=== PATIENT | female | born 1940 | race Caucasian/White ===

== ENCOUNTER 2016-10-30 07:31 | Day surgery (SDC) | payer MEDICARE, OTHER ==
--- NOTE | 2016-08-31 15:00 | NUR ---
PMH, allergies, meds reviewed and documented. Patient is in a clinic wheelchair, nobody is accompanying her into my office today. Preop and Postop instructions reviewed and handouts given (Post op Carpal Tunnel Instructions and Surgical Services pamphlet). She also has my contact information and I did encourage her to call if she has any questions. She does have an appointment with her wire preparation worker, Dr Gonzalez with [facility] on Sep 14 and she is scheduled to have some testing done at that time. I will request his recommendations for anticoag management preop as requested by Dr Garrido. I also made an apt for her to see Dr Montes for some blood work and clearance from him.
--- NOTE | 2016-09-01 09:52 | NUR ---
IMPLANTABLE DEVICES: Cards were copied and will be scanned into the EMR and Clinic EMR Defibrillator: [employer] ICD Model# [id number] # [id number] [place] [address] [employer]emaker [employer] [id number]/10/2010
--- NOTE | 2016-10-12 09:00 | NUR ---
Dr Garrido notified that straddle bug operator wants patient off Xarelto only 3 days instead of 5 days. Proceed to plan with surgery.
--- NOTE | 2016-10-19 12:04 | NUR ---
NN PT STATED THAT SHE HAD NOT BEEN INSTRUCTED TO STOP HER XARELTO WHEN I TALKED WITH HER. SHE LAST TOOK IT ON YESTERDAY EVENING BUT HAD NOT YET TAKEN IT TODAY. NOTIFIED Jazmin GRIER RN WITH DR. BARDALES. SHE STATED SHE WOULD NOTIFY DR. BARDALES AND SEE WHAT HIS THOUGHTS WERE FAR CONTINUING WITH PROCEDURE. PT. IS AWARE THAT SOMEONE WILL BE CALLING HER BACK.
--- NOTE | 2016-10-19 13:56 | NUR ---
XARELTO PT REPORTS TO Albina GOMEZ RN SHE DID NOT STOP HER XARELTO TILL 10-18-2016. SHE HAS TO BE OFF [address] BARDALES SAID TO CANCEL AND RESCHEDULE THE SURGERY. I DID INFORM THE PATIENT OF THIS AND WE WILL CALL AND RESCHEDULE HER ANDREZ. SHE WAS NOT INSTRUCTED BY THE STOVE FITTER TO STOP HER XARELTO
--- NOTE | 2016-10-21 11:10 | NUR ---
Surgery rescheduled for 10-30-16. Pt instructed to hold Xarelto x3 days as requested by Dr Gonzalez and Dr Garrido, to take Entresto the morning before surgery but to hold the evening dose and to not take it the morning of surgery. Patient was writing instructions down.
[~2016-10-30] VITALS: Ht 160 cm; Wt 99.7 kg
[~2016-10-30 07:31] MED LIST: ACET-2723 PO; ALLO300T2 PO; AMIT50TA95 PO; BUME2TAB18 PO; CALC200T PO; CHOL400T23 PO; DIGO125T17 PO; LATA2.5D7 BOTH EYES; LETR2.5T4 PO; LEVO75TA10 PO; LIDOCAINE 1% (10mg/ml) 2ml SDV INJ ONE; LR 1,000 ML IV SCH; METO25TA6 PO; NITR0.4T SL; NORMAL SALINE 1,000 ML IV ONE; OMEP40CA11 PO; RIVA20TA PO; SACU1TAB PO; TRIA15CR4 TOP
--- OUTSIDE RECORDS SUMMARY | 2016-10-30 07:35 | XMS REPORT | Continuity of Care Document ---
Author Author [facility] Organization [facility] Address Unknown Phone Unavailable Support Name Relationship Address Phone MONY FELIZ FACS, MD Caregiver [address] [place] [address] [place] [address] Unavailable VIKY CANAS DO Caregiver [address] [place] [address] [place] [address] Unavailable ISRRAEL ZUNIGA Next Of Kin Unknown [phone] CP Insurance Providers Guarantor Kim Zuniga Address [address] [address] Email DENIED/NO TO PT PORTAL Payer Medicare Policy Number [id number] Subscriber's Name Kim Zuniga Relationship 18 Self Effective Date 04 Payer Other A Insurance Policy Number [id number] Subscriber's Name Kim Zuniga Relationship 18 Self Advance Directives Directive Response Recorded Date/Time Dr Ordered Resuscitation Status Full Code 01/17/16 3:51pm Resuscitation Documents on File No 01/20/16 2:13pm DPOA for Healthcare Only No 01/20/16 2:13pm Problems Active Problems Medical Problem Onset Date Status Bilateral breast cancer Unknown Acute CAD (coronary artery disease) Unknown Chronic COPD (chronic obstructive pulmonary disease) Unknown Chronic Chest wall contusion Unknown Acute Contusion of arm, right Unknown Acute Elevated INR Unknown Acute GERD (gastroesophageal reflux disease) Unknown Chronic History of DVT (deep vein thrombosis) Unknown Resolved History of pulmonary embolus (PE) Unknown History of sick sinus syndrome Unknown Chronic Hypertension Unknown Chronic Hypothyroidism Unknown Chronic Postoperative hypotension Unknown Presence of combination internal cardiac defibrillator (ICD) and pacemaker Unknown Chronic Right rib fracture Unknown Acute Medications Current Home Medications Medication Dose Units Route Directions Days Qty Instructions Start Date Acetaminophen (Tylenol Extra Strength) 500 Mg Tablet 1-2 Tab Oral Every 6 Hours as needed for Pain 12/18/15 Allopurinol 300 Mg Tablet 300 Mg Oral Bedtime 11/16/15 Amitriptyline Hcl 50 Mg Tablet 50 Mg Oral Bedtime 05/19/10 Bumetanide 2 Mg Tablet 1-2 Mg Oral Daily 11/16/15 Hydrocodone/Acetaminophen (Lucien 5-325 Tablet) 5-325 Tablet 1 Tab Oral Every 4 Hours 01/20/16 Latanoprost 2.5 Ml Drops 1 Drop Both Eyes Bedtime 11/16/15 Levothyroxine Sodium 75 Mcg Tablet 75 Mcg Oral Bedtime 11/16/15 Metoprolol Tartrate 25 Mg Tablet 25 Mg Oral Twice A Day 11/16/15 Omeprazole (Prilosec) 40 Mg Capsule. 40 Mg Oral Bedtime Spironolactone 25 Mg Tablet 25 Mg Oral Twice A Day 11/16/15 Triamcinolone (Triamcinolone Acetonide) 15 Applic/15 G Cr 1 Applic Topically Twice A Day 11/16/15 Vit A/C/E Ac/Znox/Cupric Oxide (Eye Vitamin-Minerals Tablet) 1 Each Tablet 1 Tab Oral Twice A Day 11/16/15 Warfarin Sodium 2 Mg Tablet 3 Tab Oral Daily 90 Tablet 01/20/16 Past Home Medications Medication Directions Ordered Status Amlodipine Besylate (Norvasc) 10 Mg Tablet, 10 Mg Oral Daily 12/23/08 Discontinued Cholecalciferol (Vitamin D) 400 Unit Capsule, 12/23/08 Discontinued Duloxetine Hcl (Cymbalta) 60 Mg Capsule., Daily 12/23/08 Discontinued Esomeprazole Mag Trihydrate (Nexium) 40 Mg Capsule., 40 Mg Oral 12/23/08 Discontinued Flaxseed (Flaxseed Oil) 1,000 Mg Capsule, Daily 12/23/08 Discontinued Ipratropium [place] (Atrovent Hfa) 12.9 Gm Aer.w.adap, Every 6 Hours Discontinued Metoprolol Succinate (Toprol Xl) 100 Mg Tab.sr.24h, Daily 12/23/08 Discontinued Vitamin E 200 Unit Capsule, 12/23/08 Discontinued Warfarin Sodium 2 Mg Tablet, 6 Mg Oral Every Wednesday And 11/16/15 Discontinued Warfarin Sodium 2 Mg Tablet, 5 Mg Oral Every Wednesday, Wednesday, Wednesday, Wednesday , And Wednesday11/16/15 Discontinued Warfarin Sodium (Coumadin) 2 Mg Tablet, Daily 12/23/08 Discontinued Social History Social History Problem Response Recorded Date/Time Onset Date Status Chewing Tobacco Status No 01/17/2016 1:38pm Not Applicable Not Applicable Hx Substance Use No 01/17/2016 1:38pm Not Applicable Not Applicable Hx Alcohol Use No 01/20/2016 2:48pm Not Applicable Not Applicable Has the pt used tobacco in the last 12 months No 01/17/2016 1:38pm Not Applicable Not Applicable Tobacco Usage none 11/16/2015 11:21am Not Applicable Not Applicable Query Response Start Date Stop Date Smoking Status Never smoker Hospital Discharge Instructions No hospital discharge instructions. Plan of Care Discharge Date 01/20/16 4:58pm Instructions/Education Provided DI for Arturo-Tatum Drains How to Use and Care for Your Arturo-Tatum Drain Arturo-Tatum Drain Prescriptions See Medication Section Functional Status Query Response Date Recorded Ability to complete ADL's impeded by No change January 20, 2016 2:13pm Allergies, Adverse Reactions, Alerts Allergen Type Severity Reaction Status Last Updated Codeine Allergy Severe COULDN'T BREATH,HEART RACING Active 01/20/16 Immunizations Query Response on File Recorded Date/Time Hx Influenza Vaccination Y SEP 2015 01/17/16 1:38pm Hx Pneumococcal Vaccination Y 201001/17/16 1:38pm Hx Tetanus, Diptheria, Pertussis Y MORE THAN 5 YRS. AGO 12/22/08 5:47pm Hx Influenza Vaccination Y SEP 2015 01/17/16 1:38pm Hx Tetanus, Diptheria, Pertussis Y MORE THAN 5 YRS. AGO 12/22/08 5:47pm Influenza Vaccine Hx SEP 2015 12/21/15 12:31pm Vital Signs Acute Vital Signs Vital Response Date/Time Temperature (Fahrenheit) 97.6 deg F (96.8 - 99.1) 01/20/2016 3:45pm Temperature (Calculated Celsius) 36.72197 degrees C (36.0 - 37.3) 01/20/2016 3:45pm Temperature Source Temporal 01/20/2016 3:45pm Pulse Rate (adult) 76 bpm (60 - 100) 01/20/2016 4:45pm Respiratory Rate 16 breaths/min (10 - 20) 01/20/2016 4:45pm O2 Sat by Pulse Oximetry 94 % (90 - 100) 01/20/2016 4:45pm Oxygen Delivery Method Nasal Cannula 12/21/2015 3:43pm Oxygen Delivery Method Nasal Cannula 01/20/2016 4:45pm Oxygen Flow Rate 3.00 L/min 01/20/2016 4:45pm Fraction of Inspired Oxygen (FIO2) 30 % 12/20/2015 7:04am Blood Pressure 111/74 mm Hg 01/20/2016 4:45pm Blood Pressure Source Automatic Cuff 01/20/2016 4:45pm Height (Feet) 5 feet 01/20/2016 1:30pm Height (Inches) 3.00 inches 01/20/2016 1:30pm Weight (Kilograms) 104.800 kg 01/20/2016 1:30pm Body Mass Index (BMI) 40.9 01/20/2016 1:30pm Results Laboratory Results Test Name Result Units Flags Reference Collection Date/Time Result Date/ Time Comments Carcinoembryonic Antigen 2.23 UG/L 0-3.0 10/24/2015 2:10pm 10/24/2015 3 :47pm CA 27.29 51.45 U/ML H 0-37.7 10/24/2015 2:10pm 10/24/2015 3:53pm Prothromb Time International Ratio 1.11 H 0.81-1.09 12/19/2015 7:34am 12/19/2015 7:49am THERAPUTIC RANGE=2.00-3.00 FOR ANTI-THROMBOSIS THERAPUTIC RANGE=2.50-3.50 FOR IMPLANTED VALVE White Blood Count 8.5 T/MM3 4.5-11.0 01/20/2016 1:25pm 01/20/2016 1: 31pm Red Blood Count 4.00 M/MM3 4.00-5.20 01/20/2016 1:pm 01/20/2016 1: 31pm Hemoglobin 11.3 GM/DL L 12-16 01/20/2016 1:01/20/2016 1:31pm Hematocrit 38.2 % 36-46 01/20/2016 1:01/20/2016 1:31pm Mean Corpuscular Volume 95.5 UM3 80-100 01/20/2016 1:01/20/2016 1: 31pm Mean Corpuscular Hemoglobin 28.3 UUG 26-34 01/20/2016 1:2015 1:31pm Mean Corpuscular Hemoglobin Concent 29.6 GM/DL L 31-37 01/20/2016 1:01/20/2016 1:31pm RDW Standard Deviation 54.6 FL H 36.9-50.2 01/20/2016 1:01/20/2016 1:31pm Platelet Count 284 T/MM3 130-400 01/20/2016 1:01/20/2016 1:31pm Mean Platelet Volume 9.1 UM3 L 9.4-12.4 01/20/2016 1:01/20/2016 1: 31pm Neutrophils (%) (Auto) 62.4 % 33-66 01/20/2016 1:01/20/2016 1: 31pm Lymphocytes (%) (Auto) 24.0 % 23-45 01/20/2016 1:01/20/2016 1: 31pm Monocytes (%) (Auto) 9.9 % H 0-9.0 01/20/2016 1:01/20/2016 1:31pm Eosinophils (%) (Auto) 3.1 % 0-4 01/20/2016 1:01/20/2016 1:31pm Basophils (%) (Auto) 0.4 % 0-2 01/20/2016 1:01/20/2016 1:31pm Immature Granulocyte % (Auto) 0.2 % 0.0-0.5 01/20/2016 1:2015 1:31pm Absolute Neutrophils (auto) 5.3 T/MM3 1.8-7.7 01/20/2016 1:2015 1:31pm Absolute Lymphocytes (auto) 2.0 T/MM3 1-4.8 01/20/2016 1:2015 1:31pm Absolute Monocytes (auto) 0.8 T/MM3 0-0.8 01/20/2016 1:01/20/2016 1:31pm Absolute Eosinophils (auto) 0.3 T/MM3 0-0.5 01/20/2016 1:2015 1:31pm Absolute Basophils (auto) 0.0 T/MM3 0-0.2 01/20/2016 1:01/20/2016 1:31pm Absolute Immature Granulocyte (auto 0.02 T/MM3 0.00-0.03 01/20/2016 1: 01/20/2016 1:31pm Icterus Index < 2 0-7 01/20/2016 1:01/20/2016 1:48pm Chemistry Specimen Hemolysis < 15 0-25 01/20/2016 1:01/20/2016 1 :48pm 0-25: Specimen Exhibited No Hemolysis. Turbidity < 20 0-20 01/20/2016 1:01/20/2016 1:48pm Sodium Level 142 MEQ/L 134-144 01/20/2016 1:01/20/2016 1:48pm Potassium Level 4.5 MEQ/L 3.6-5 01/20/2016 1:01/20/2016 1:48pm Chloride Level 99 MEQ/L 98-107 01/20/2016 1:01/20/2016 1:48pm Carbon Dioxide Level 29 MEQ/L 22-30 01/20/2016 1:01/20/2016 1: 48pm Anion Gap 14 MEQ/L 5-15 01/20/2016 1:01/20/2016 1:48pm Blood Urea Nitrogen 33.0 MG/DL H 7-17 01/20/2016 1:01/20/2016 1: 48pm Creatinine 1.3 MG/DL H 0.7-1.2 01/20/2016 1:01/20/2016 1:48pm BUN/Creatinine Ratio 25 RATIO 6-26 01/20/2016 1:01/20/2016 1:48pm Glomerular Filtration Rate Calc 40 01/20/2016 1:01/20/2016 1: 48pm Glucose Level 98 MG/DL 65-110 01/20/2016 1:01/20/2016 1:48pm Calculated Osmolality 280 MOSM/KG 261-280 01/20/2016 1:01/20/2016 1:48pm Calcium Level 9.7 MG/DL 8.4-10.2 01/20/2016 1:01/20/2016 1:48pm Total Bilirubin 0.60 MG/DL 0.20-1.30 01/20/2016 1:01/20/2016 1: 48pm Alkaline Phosphatase 89 U/L 38-126 01/20/2016 1:01/20/2016 1:48pm Total Protein 7.9 G/DL 6.3-8.2 01/20/2016 1:25pm 01/20/2016 1:48pm Albumin 4.4 G/DL 3.5-5.0 01/20/2016 1:25pm 01/20/2016 1:48pm Globulin 3.5 G/DL 2.4-3.6 01/20/2016 1:25pm 01/20/2016 1:48pm Albumin/Globulin Ratio 1.3 RATIO 1.1-2.2 01/20/2016 1:25pm 01/20/2016 1 :48pm Aspartate Amino Transf (AST/SGOT) 31 U/L 14-36 01/20/2016 1:25pm 2015 1:48pm Alanine Aminotransferase (ALT/SGPT) 19 U/L 9-52 01/20/2016 1:25pm 01/19 1:48pm Procedures Procedure Status Date Provider(s) PET IMAGE W/CT SKULL-THIGH Completed 10/23/15 [id number]"FLUORODEOXYGLUCOSE F-18 FDG, DIAGNOSTIC, PER STUDY DO Completed CARCINOEMBRYONIC ANTIGEN Completed 10/24/15 IMMUNOASSAY TUMOR CA 15-3 Completed 10/24/15 MAST MOD RAD Completed 12/20/15 MONY FELIZ MD, FACS, CWS RA TRACER ID OF SENTINL NODE Completed 12/20/15 MONY FELIZ MD, FACS, CWS POS AIRWAY PRESSURE CPAP Completed 12/20/15 MONY FELIZ MD, FACS, CWS RESECTION OF BILATERAL BREAST, OPEN APPROACH Completed 12/19/15 MONY FELIZ MD, FACS, CWS EXCISION OF LEFT AXILLARY LYMPHATIC, OPEN APPROACH, DIAGN Completed 12/19/15 MONY FELIZ MD, FACS, CWS EXCISION OF RIGHT AXILLARY LYMPHATIC, OPEN APPROACH, DIAGN Completed MONY FELIZ MD, FACS, CWS ASSISTANCE WITH RESPIRATORY VENTILATION, <24 HRS, CPAP Completed 12/19/15 MONY FELIZ MD, FACS, CWS ROUTINE VENIPUNCTURE Completed 11/16/15 X-RAY EXAM RIBS/CHEST4/> VWS Completed 11/16/15 METABOLIC PANEL TOTAL CA Completed 11/16/15 COMPLETE CBC W/AUTO DIFF WBC Completed 11/16/15 PROTHROMBIN TIME Completed 11/16/15 ELECTROCARDIOGRAM TRACING Completed 11/16/15 EMERGENCY DEPT VISIT Completed 11/16/15 Modified radical mastectomy Completed 01/20/16 MONY FELIZ MD, JI MEEKS Encounters Encounter Location Arrival/Admit Date Discharge/Depart Date Attending Provider Departed Surgical Day Care [facility] 01/20/16 1:03pm 01/20/16 4: 58pm MONY FELIZ FACS, MD Discharged Inpatient [facility] 12/20/15 5:20pm 12/21/15 4:35pm MONY FELIZ FACS, MD Departed Emergency Room [facility] 11/16/15 10:50am 11/16/15 1: 05pm KASH MENDOZA MD Registered Clinic [facility] 10/24/15 2:21pm HARDIK FAY MD Registered Clinic [facility] 10/23/15 6:53am HARDIK FAY MD
--- OUTSIDE RECORDS SUMMARY | 2016-10-30 07:36 | XMS REPORT | Referral Summary ---
Author Author [facility] Organization [facility] Address Unknown Phone Unavailable Care Team Providers Care Pet Care Attendant Name Role Phone Alfredo Montes Primary Care Physician [phone] Encounter VC Date(s): 02/04/16 - 02/04/16 [facility] [address] [place] [address] Dr Cespedes [place] [id number]- Discharge Diagnosis: Visit for suture removal Discharge Disposition: 01-Home or Self Care Attending Physician: Chapis Wolff APRN Admitting Physician: Chapis Wolff APRN Referring Physician: Alfredo Montes DO Vital Signs Most recent to 1 oldest [Reference Range]: Temperature Tympanic 37 degC [36.6-38.1 degC] (02/04/16 10:03 AM) Problem List Condition Effective Dates Status Health Status Informant Angina/Chest Active Pain(Confirmed) Back pain(Confirmed) Active Backache Active (finding)(Confirmed) Benign essential Active hypertension (disorder)(Confirmed ) Benign Active hypertension(Confirm ed) Blood clots Active lungs/legs(Confirmed ) Cardiac 10/10/14 Active pacemaker(Confirmed) 1 CARDIOMEGALY(Confirm Active ed) COPD (CHR AIRWAY Active OBSTRUCT NEC)(Confirmed) COR ATH UNSP VSL Active NTV/GFT(Confirmed) Coronary Active arteriosclerosis (disorder)(Confirmed ) Coronary artery Active disease(Confirmed) Depression Disorder, Active Not Elsewhere Classified(Confirmed ) DVT (deep venous Active thrombosis)(Confirme d) Gastroesophageal Active reflux disease (disorder)(Confirmed ) GERD(Confirmed) Active High Active cholesterol(Confirme d) Hypothyroidism Active (disorder)(Confirmed ) Hypothyroidism(Confi Active rmed) Irregular heart Active rhythm(Confirmed) Non-toxic Active multinodular goiter (disorder)(Confirmed ) Nontoxic Active multinodular goiter(Confirmed) Pedal Active edema(Confirmed) Sick sinus Active syndrome(Confirmed) Sinus node Active dysfunction (disorder)(Confirmed ) Thyroid Active disease/Goiter(Confi rmed) Diabetes, type 2, Active unspec(Confirmed) UNSPECIFIED Active CATARACT(Confirmed) 1Dr. Jhonatan Portillo placed the pacemaker. I made a copy of the ID card for the chart. Allergies, Adverse Reactions, Alerts Substance Reaction Severity Status codeine Active Medications allopurinol 300 mg oral tablet See Instructions, TAKE 1 TABLET AT BEDTIME, # 90 tabs, 1 Refill(s), [facility], TAKE 1 TABLET AT BEDTIME Start Date: 11/07/15 Status: Ordered amitriptyline 50 mg oral tablet 50 mg 1 tabs, Oral, Bedtime (once a day), # 90 tabs, 2 Refill(s), Pharmacy: [facility], 1 tabs Oral Bedtime (once a day) Start Date: 11/07/15 Status: Ordered bumetanide 2 mg oral tablet 0.5 tabs, Oral, Daily, # 45 tabs, 2 Refill(s), Pharmacy: [facility], 0.5 tabs Oral Daily Start Date: 08/23/14 Status: Ordered latanoprost 0.005% ophthalmic solution 1 drops, Eye-Both, Bedtime (once a day), Please send 90 day supply quantity sufficient, # 3 Each, 2 Refill(s), Pharmacy: [facility] Start Date: 11/07/15 Status: Ordered levothyroxine 75 mcg (0.075 mg) oral tablet 75 mcg 1 tabs, Oral, Daily, # 90 tabs, 2 Refill(s), Pharmacy: [facility], 1 tabs Oral Daily Start Date: 11/07/15 Status: Ordered metoprolol tartrate 25 mg oral tablet 25 mg 1 tabs, Oral, BID, # 60 tabs, 2 Refill(s), Pharmacy: [facility] Start Date: 11/07/15 Status: Ordered minocycline 100 mg oral capsule 100 mg 1 caps, Oral, BID, # 20 caps, 0 Refill(s) Start Date: 12/06/15 Stop Date: 12/16/15 Status: Ordered minocycline 100 mg oral tablet 100 mg 1 tabs, Oral, BID, 0 Refill(s) Start Date: 02/04/16 Status: Ordered Nitrostat 0.4 mg sublingual tablet 1 tabs, SubLingual, q5min, as needed for chest pain, not to exceed 3 doses/15 min--if pain persists, seek medical attention, # 8,640 tabs, 1 Refill(s), Pharmacy: [facility], 1 tabs SubLingual q5min,PRN:as needed for chest pain, Instr:not to exceed... Start Date: 08/23/14 Status: Ordered omeprazole 40 mg oral delayed release capsule See Instructions, TAKE 1 CAPSULE EVERY DAY, # 90 caps, 1 Refill(s), Pharmacy: [facility], TAKE 1 CAPSULE EVERY DAY Start Date: 11/07/15 Status: Ordered spironolactone 25 mg oral tablet 25 mg 1 tabs, Oral, BID, # 180 tabs, 1 Refill(s), Pharmacy: [facility], 1 tabs Oral BID Start Date: 11/07/15 Status: Ordered triamcinolone 0.1% topical cream See Instructions, APPLY TO AFFECTED AREA(S) TWICE DAILY, # 90 g, 2 Refill(s), eRx: [facility], APPLY TO AFFECTED AREA(S) TWICE DAILY Start Date: 07/19/15 Status: Ordered triamcinolone 0.1% topical cream See Instructions, APPLY TO AFFECTED AREA(S) TWICE DAILY, # 90 g, 2 Refill(s), Pharmacy: [facility] Start Date: 11/07/15 Stop Date: 11/06/16 Status: Ordered warfarin 2 mg oral tablet See Instructions, Take as directed per INR Right now patient on 3 tabs daily 90 day supply, # 270 tabs, 2 Refill(s), Pharmacy: [facility] , Take as directed per INR; Right now patient on 3 tabs daily 90 day supply Start Date: 11/07/15 Status: Ordered Results No data available for this section Immunizations Vaccine Date Refusal Reason influenza virus vaccine, inactivated 08/29/15 influenza virus vaccine, live 05/23/14 influenza virus vaccine, live 05/16/13 pneumococcal 13-valent conjugate vaccine 08/29/15 zoster vaccine live 08/29/15 Procedures Procedure Date Related Diagnosis Body Site Revision of mastectomy scar1 01/20/16 Bilateral mastectomy2 12/19/15 History of combination internal cardiac 10/09/14 defibrillator and pacemaker3 DM FOOT EXAM 01/20/12 Pacemaker4 01/09/10 Rt inguinal hernia5 2007 Cataract Left 2007 Cataract Right 2007 Adenomatous polyp 2006 Colonoscopy 2006 Knee replacement L 2005 Knee replacement R 2005 BREAST BIOPSY LEFT AND RIGHT 1997 Thyroid Surgery ANKUSH THYROID 1997 HERNIATED DISC L4-5 1995 Appendectomy 1975 gall bladder 1974 History of combination internal cardiac defibrillator and pacemaker Mammogram6 1right 2Sentinel nods negative on frozen section.Right node with single focus of micrometastatis on permanent sections. 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 Bryan OLVIARES - see Conversion Document 5Dr. Lm in [place] - see Conversion Document. 6Needs additional Imaging. See scanned document Social History Social History Type Response Smoking Status Never smoker Assessment and Plan Extracted from: Title: Office Visit Note Author: Chapis Wolff SERVICE ADMINISTRATOR Date: 02/04/16 Assessment/Plan 1.Visit for suture removal Mastectomy flap is looking good. It is flatteron the rightthan on the left because we did have to take out extra skinand that tightened upthe flap. Hopefully the mastectomy bra with a wider band will take care of most of the problem with the"dog ear"in the left axilla. Continue withoncology care with Dr. Meade cardiology carewith Dr. Gonzalez. Return to our office on an as-needed basis. General medical care at the discretion of Dr. Alfredo Montes. Ordered: Postoperative Est [id number]
--- OUTSIDE RECORDS SUMMARY | 2016-10-30 07:36 | XMS REPORT | Referral Summary ---
Author Author [facility] Organization [facility] Address Unknown Phone Unavailable Care Team Providers Care Data Control Clerk Name Role Phone BellleylaAlfredo Primary Care Physician [phone] Encounter VC Date(s): 12/27/15 - 12/27/15 [facility], Surgery [address] [place] [address] [place] [address]- Discharge Diagnosis: Encounter for change or removal of drains Discharge Diagnosis: Malignant neoplasm of overlapping sites of right female breast Discharge Diagnosis: Bilateral breast cancer Discharge Disposition: 01-Home or Self Care Attending Physician: Eddie Chris MD Admitting Physician: Eddie Chris MD Vital Signs Most recent to 1 oldest [Reference Range]: Temperature Tympanic 36.9 degC [36.6-38.1 degC] (12/27/15 11:42 AM) Problem List Condition Effective Dates Status [...] BEDTIME, # 90 tabs, 1 Refill(s), Pharmacy: [facility], TAKE 1 TABLET AT BEDTIME Start Date: 11/07/15 Status: Ordered amitriptyline 50 mg oral tablet 50 mg 1 tabs, Oral, Bedtime (once a day), # 90 tabs, 2 Refill(s), Pharmacy: [facility], 1 tabs Oral Bedtime (once a day) Start Date: 11/07/15 Status: Ordered bumetanide 2 mg oral tablet 0.5 tabs, Oral, Daily, # 45 tabs, 2 Refill(s), Pharmacy: [facility], 0.5 tabs Oral Daily Start Date: 08/23/14 Status: Ordered latanoprost 0.005% ophthalmic solution 1 drops, Eye-Both, Bedtime (once a day), Please send 90 day supply quantity sufficient, # 3 Each, 2 Refill(s), Pharmacy: [facility] Start Date: 11/07/15 Status: Ordered levothyroxine 75 mcg (0.075 mg) oral tablet 75 mcg 1 tabs, Oral, Daily, # 90 tabs, 2 Refill(s), Pharmacy: [facility], 1 tabs Oral Daily Start Date: 11/07/15 Status: Ordered metoprolol tartrate 25 mg oral tablet 25 mg 1 tabs, Oral, BID, # 60 tabs, 2 Refill(s), Pharmacy: [facility] Start Date: 11/07/15 Status: Ordered minocycline 100 mg oral capsule 100 mg 1 caps, Oral, BID, # 20 caps, 0 Refill(s) Start Date: 12/06/15 Stop Date: 12/16/15 Status: Ordered Nitrostat 0.4 mg sublingual tablet 1 tabs, SubLingual, q5min, as needed for chest pain, not to exceed 3 doses/15 min--if pain persists, seek medical attention, # 8,640 tabs, 1 Refill(s), Pharmacy: [facility], 1 tabs SubLingual q5min,PRN:as needed for chest pain, Instr:not to exceed... Start Date: 08/23/14 Status: Ordered [place] 5 mg-325 mg oral tablet 1 tabs, Oral, q6hr, as needed for pain, # 15 tabs, 0 Refill(s) Start Date: 11/18/15 Status: Ordered omeprazole 40 mg oral delayed release capsule See Instructions, TAKE 1 CAPSULE EVERY DAY, # 90 caps, 1 Refill(s), Pharmacy: [facility], TAKE 1 CAPSULE EVERY DAY Start Date: 11/07/15 Status: Ordered spironolactone 25 mg oral tablet 25 mg 1 tabs, Oral, BID, # 180 tabs, 1 Refill(s), Pharmacy: [facility], 1 tabs Oral BID Start Date: 11/07/15 Status: Ordered triamcinolone 0.1% topical cream See Instructions, APPLY TO AFFECTED AREA(S) TWICE DAILY, # 90 g, 2 Refill(s), eRx: [facility], APPLY TO AFFECTED AREA(S) TWICE DAILY Start Date: 07/19/15 Status: Ordered triamcinolone 0.1% topical cream See Instructions, APPLY TO AFFECTED AREA(S) TWICE DAILY, # 90 g, 2 Refill(s), Pharmacy: [facility] Start Date: 11/07/15 Stop Date: 11/06/16 Status: Ordered warfarin 2 mg oral tablet See Instructions, Take as directed per INR Right now patient on 3 tabs daily 90 day supply, # 270 tabs, 2 Refill(s), Pharmacy: [facility] , Take as directed [...] Procedures Procedure Date Related Diagnosis Body Site Bilateral mastectomy1 12/19/15 History of combination internal cardiac 10/09/14 defibrillator and pacemaker2 DM FOOT EXAM 01/20/12 Pacemaker3 01/09/10 Rt inguinal hernia4 2007 Cataract Left 2006 Cataract Right 2006 Adenomatous polyp 2006 Colonoscopy 2006 Knee replacement L 2005 Knee replacement R 2005 BREAST BIOPSY LEFT AND RIGHT 1996 Thyroid Surgery ANKUSH THYROID 1997 HERNIATED DISC L4-5 1995 Appendectomy 1974 gall bladder 1974 History of combination internal cardiac defibrillator and pacemaker Mammogram5 1Sentinel nods negative on frozen section.Right node with single focus of micrometastatis on permanent sections. 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 3PDr. Bryan QUACH - see Conversion Document 4Dr. Lm in [place] - see Conversion Document. 5Needs additional Imaging. See scanned document Social History Social History Type Response Smoking Status Never smoker Assessment and Plan Extracted from: Title: Office Visit Note Author: Eddie Chris MD Date: 12/27/15 Assessment/Plan 1.Encounter for change or removal of drains Ordered: Postoperative Est 74258 2.Bilateral breast cancer, Malignant neoplasm of overlapping sites of right female breast Ordered: Postoperative Est [id number] Plan: remove all 4 drains today, restart Warafin on December 28 and follow up with Dr. Montes for INR monitoring. Keep appointments with Dr. Love as scheduled. Follow up with me in 1weekfor suture/staple removal. I did inform the patient that her pathology did reveal onesingle focus of micro-metastatic ductal carcinomato her rightaxillary sentinel lymph node. I informed the patient that I will defer to oncology any additional treatmentthat is needed. Patient was informed that I am pleased with her surgical outcome. We did remove her drains today. I am a little reluctant tore-initiateher Coumadintoday. Patient was informedthat on Wednesday she should restart her Coumadin. She is follow-up with her PCPfor his end of next weekfor recheck of her INR. Patient was informed that I would also like to see her back next week in follow-up. She is also tosee her oncologistas well.
--- OUTSIDE RECORDS SUMMARY | 2016-10-30 07:36 | XMS REPORT | Referral Summary ---
Author Author [facility] Organization [facility], [facility] Address Unknown Phone Unavailable Care Team Providers Care Gold Prospector Name Role Phone BellAlfredo mayer Primary Care Physician [phone] Encounter VC Date(s): 11/16/15 - 11/16/15 [facility], [address] [place] [address]- Discharge Disposition: 01-Home or Self Care Attending Physician: Dl Pang MD Admitting Physician: Dl Pang MD Vital Signs Most recent to 1 oldest [Reference Range]: Temperature Tympanic 36.6 degC [36.6-38.1 degC] (11/16/15 10:13 AM) Peripheral Pulse 106 bpm Rate [60-100 bpm] *HI* (11/16/15 10:13 AM) Blood Pressure 128/78 mmHg [90-140/60-90 mmHg] (11/16/15 10:13 AM) SpO2 87 % (11/16/15 10:13 AM) Problem List Condition Effective Dates Status [...] # 90 tabs, 1 Refill(s), Pharmacy: [facility], TAKE 1 TABLET AT BEDTIME Start Date: 11/07/15 Status: Ordered amitriptyline 50 mg oral tablet 50 mg 1 tabs, Oral, Bedtime (once a day), # 90 tabs, 2 Refill(s), Pharmacy: [facility], 1 tabs Oral Bedtime (once a day) Start Date: 11/07/15 Status: Ordered bumetanide 2 mg oral tablet 0.5 tabs, Oral, Daily, # 45 tabs, 2 Refill(s), Pharmacy: [facility], 0.5 tabs Oral Daily Start Date: 08/23/14 Status: Ordered latanoprost 0.005% ophthalmic solution 1 drops, Eye-Both, Bedtime (once a day), Please send 90 day supply quantity sufficient, # 3 Each, 2 Refill(s), Pharmacy: [facility] Start Date: 11/07/15 Status: Ordered levothyroxine 75 mcg (0.075 mg) oral tablet 75 mcg 1 tabs, Oral, Daily, # 90 tabs, 2 Refill(s), Pharmacy: [facility], 1 tabs Oral Daily Start Date: 11/07/15 Status: Ordered metoprolol tartrate 25 mg oral tablet 25 mg 1 tabs, Oral, BID, # 60 tabs, 2 Refill(s), Pharmacy: [facility] Start Date: 11/07/15 Status: Ordered Nitrostat 0.4 mg sublingual tablet 1 tabs, SubLingual, q5min, as needed for chest pain, not to exceed 3 doses/15 min--if pain persists, seek medical attention, # 8,640 tabs, 1 Refill(s), Pharmacy: [facility], 1 tabs SubLingual q5min,PRN:as needed for chest pain, Instr:not to exceed... Start Date: 08/23/14 Status: Ordered omeprazole 40 mg oral delayed release capsule See Instructions, TAKE 1 CAPSULE EVERY DAY, # 90 caps, 1 Refill(s), Pharmacy: [facility], TAKE 1 CAPSULE EVERY DAY Start Date: 11/07/15 Status: Ordered spironolactone 25 mg oral tablet 25 mg 1 tabs, Oral, BID, # 180 tabs, 1 Refill(s), Pharmacy: [facility], 1 tabs Oral BID Start Date: 11/07/15 Status: Ordered triamcinolone 0.1% topical cream See Instructions, APPLY TO AFFECTED AREA(S) TWICE DAILY, # 90 g, 2 Refill(s), eRx: [facility], APPLY TO AFFECTED AREA(S) TWICE DAILY Start Date: 07/19/15 Status: Ordered triamcinolone 0.1% topical cream See Instructions, APPLY TO AFFECTED AREA(S) TWICE DAILY, # 90 g, 2 Refill(s), Pharmacy: [facility] Start Date: 11/07/15 Stop Date: 11/06/16 Status: Ordered warfarin 2 mg oral tablet See Instructions, Take as directed per INR Right now patient on 3 tabs daily 90 day supply, # 270 tabs, 2 Refill(s), Pharmacy: [facility] , Take as directed [...] Procedures Procedure Date Related Diagnosis Body Site History of combination internal cardiac 10/09/14 defibrillator and pacemaker1 DM FOOT EXAM 01/20/12 Pacemaker2 01/09/10 Rt inguinal hernia3 2007 Cataract Left 2006 Cataract Right 2006 Adenomatous polyp 2006 Colonoscopy 2006 Knee replacement L 2005 Knee replacement R 2005 BREAST BIOPSY LEFT AND RIGHT 1997 Thyroid Surgery ANKUSH THYROID 1997 HERNIATED DISC L4-5 1995 Appendectomy 1974 gall bladder 1974 History of combination internal cardiac defibrillator and pacemaker Mammogram4 1[facility] group 2PDr. Bryan QUACH - see Conversion Document 3Dr. Lm in [place] - see Conversion Document. 4Needs additional Imaging. See scanned document Social History Social History Type Response Smoking Status Never smoker Assessment and Plan Extracted from: Title: Ambulatory Patient Education Author: Dl Pnag MD Date: 11/15 Family Medicine Chest Pain Observation It is often hard to give a specific diagnosis for the cause of chest pain. Among other possibilities your symptoms might be caused by inadequate oxygen delivery to your heart (angina). Angina that is not treated or evaluated can lead to a heart attack (myocardial infarction) or . Blood tests, electrocardiograms, and X-rays may have been done to help determine a possible cause of your chest pain. After evaluation and observation , your health care provider has determined that it is unlikely your pain was caused by an unstable condition that requires hospitalization. However, a full evaluation of your pain may need to be completed, with additional diagnostic testing as directed. It is very important to keep your follow-up appointments. Not keeping your follow-up appointments could result in permanent heart damage, disability, or . If there is any problem keeping your follow-up appointments, you must call your health care provider. HOME CARE INSTRUCTIONS Due to the slight chance that your pain could be angina, it is important to follow your health care provider's treatment plan and also maintain a healthy lifestyle: Maintain or work toward achieving a healthy weight. Stay physically active and exercise regularly. Decrease your salt intake. Eat a balanced, healthy diet. Talk to a dietitian to learn about heart- healthy foods. Increase your fiber intake by including whole grains, vegetables, fruits , and nuts in your diet. Avoid situations that cause stress, anger, or depression. Take medicines as advised by your health care provider. Report any side effects to your health care provider. Do not stop medicines or adjust the dosages on your own. Quit smoking. Do not use nicotine patches or gum until you check with your health care provider. Keep your blood pressure, blood sugar, and cholesterol levels within normal limits. Limit alcohol intake to no more than 1 drink per day for women who are not and 2 drinks per day for men. Do not abuse drugs. SEEK IMMEDIATE MEDICAL CARE IF: You have severe chest pain or pressure which may include symptoms such as: You feel pain or pressure in your arms, neck, jaw, or back. You have severe back or abdominal pain, feel sick to your stomach ( nauseous), or throw up (vomit). You are sweating profusely. You are having a fast or irregular heartbeat. You feel short of breath while at rest. You notice increasing shortness of breath during rest, sleep, or with activity. You have chest pain that does not get better after rest or after taking your usual medicine. You wake from sleep with chest pain. You are unable to sleep because you cannot breathe. You develop a frequent cough or you are coughing up blood. You feel dizzy, faint, or experience extreme fatigue. You develop severe weakness, dizziness, fainting, or chills. Any of these symptoms may represent a serious problem that is an emergency. Do not wait to see if the symptoms will go away. Call your local emergency services (911 in the [place] Do not drive yourself to the hospital. MAKE SURE YOU: Understand these instructions. Will watch your condition. Will get help right away if you are not doing well or get worse. This information is not intended to replace advice given to you by your health care provider. Make sure you discuss any questions you have with your health care provider. Document Released: 08/21/2011 Document Revised: 07/24/2014 Document Reviewed: [facility] Patient Information 2015 [employer]. Musculoskeletal Contusion A contusion is a deep bruise. Contusions are the result of an injury that caused bleeding under the skin. The contusion may turn blue, purple, or yellow. Minor injuries will give you a painless contusion, but more severe contusions may stay painful and swollen for a few weeks. CAUSES A contusion is usually caused by a blow, trauma, or direct force to an area of the body. SYMPTOMS Swelling and redness of the injured area. Bruising of the injured area. Tenderness and soreness of the injured area. Pain. DIAGNOSIS The diagnosis can be made by taking a history and physical exam. An X-ray, CT scan, or MRI may be needed to determine if there were any associated injuries, such as fractures. TREATMENT Specific treatment will depend on what area of the body was injured. In general , the best treatment for a contusion is resting, icing, elevating, and applying cold compresses to the injured area. Xwng-pul-powvjqw medicines may also be recommended for pain control. Ask your caregiver what the best treatment is for your contusion. HOME CARE INSTRUCTIONS Put ice on the injured area. Put ice in a plastic bag. Place a towel between your skin and the bag. Leave the ice on for 15-20 minutes, 3-4 times a day, or as directed by your health care provider. Only take jkte-zln-ohltfcg or prescription medicines for pain, discomfort , or fever as directed by your caregiver. Your caregiver may recommend avoiding anti-inflammatory medicines (aspirin, ibuprofen, and naproxen) for 48 hours because these medicines may increase bruising. Rest the injured area. If possible, elevate the injured area to reduce swelling. SEEK IMMEDIATE MEDICAL CARE IF: You have increased bruising or swelling. You have pain that is getting worse. Your swelling or pain is not relieved with medicines. MAKE SURE YOU: Understand these instructions. Will watch your condition. Will get help right away if you are not doing well or get worse. This information is not intended to replace advice given to you by your health care provider. Make sure you discuss any questions you have with your health care provider. Document Released: 04/28/2006 Document Revised: 07/24/2014 Document Reviewed: [employer] Patient Information 2015 [employer] [facility]. No follow up information was provided. Extracted from: Title: CHF, chest pain, massive Author: Dl Pang MD Date: 11/16/15 bruising, elevated INR Impression and Plan Diagnosis Acute chest pain (EIR61-JY R07.9, Working, Medical). Systolic CHF, acute on chronic (YEI84-DQ I50.23, Working, Medical). Coronary arteriosclerosis (disorder) (OFY53-JP I25.10, Working, Medical). Traumatic hematoma of upper arm (LKA01-QJ S40.021A, Working, Medical). Plan: 1) We applied 5 liters oxygen per min. per NC in the office (IC). 2) EMS contacted for immediate transport to the ER, due to chest pains, dyspnea, and signs of CHF. 3) No medication changes were made at this time.. Orders Orders (Selected) Outpatient Orders Ordered Office Visit Level 4 Est 84737: Future (On Hold) BMP: PT/INR: . Dx/Order Association Plan: Diagnosis: Acute chest pain Comment: Modified: Office Visit Level 4 Est 95820; 11/16/15 15:10:00 CDT, Traumatic hematoma of upper arm | Systolic CHF, acute on chronic | Acute chest pain | Coronary arteriosclerosis (disorder) Diagnosis: Coronary arteriosclerosis (disorder) Comment: Modified: Office Visit Level 4 Est 96224; 11/16/15 15:10:00 CDT, Traumatic hematoma of upper arm | Systolic CHF, acute on chronic | Acute chest pain | Coronary arteriosclerosis (disorder) Diagnosis: Systolic CHF, acute on chronic Comment: Modified: Office Visit Level 4 Est 25089; 11/16/15 15:10:00 CDT, Traumatic hematoma of upper arm | Systolic CHF, acute on chronic | Acute chest pain | Coronary arteriosclerosis (disorder) Diagnosis: Traumatic hematoma of upper arm Comment: Modified: Office Visit Level 4 Est 56852; 11/16/15 15:10:00 CDT, Traumatic hematoma of upper arm | Systolic CHF, acute on chronic | Acute chest pain | Coronary arteriosclerosis (disorder) End of Orders ."
--- OUTSIDE RECORDS SUMMARY | 2016-10-30 07:36 | XMS REPORT | Referral Summary ---
Author Author [facility], Family [facility] Organization [facility] Address Unknown Phone Unavailable Care Team Providers Care Machine Leather Trimmer Name Role Phone Alfredo Montes Primary Care Physician [phone] Encounter VC Date(s): 08/29/15 - 08/29/15 [facility], [address] [place] [address]- Discharge Disposition: 01-Home or Self Care Attending Physician: Alfredo Montes DO Admitting Physician: Alfredo Montes DO Vital Signs Most recent to 1 oldest [Reference Range]: Temperature Tympanic 37 degC [36.6-38.1 degC] (08/29/15 2:39 PM) Peripheral Pulse 80 bpm Rate [60-100 bpm] (08/29/15 2:39 PM) Blood Pressure 124/55 mmHg [90-140/60-90 mmHg] (08/29/15 2:39 PM) Problem List Condition Effective Dates Status Health [...] AT BEDTIME, # 90 tabs, 1 Refill(s), eRx: [facility], TAKE 1 TABLET AT BEDTIME Start Date: 05/06/15 Status: Ordered amitriptyline 50 mg oral tablet 50 mg 1 tabs, Oral, Bedtime (once a day), # 90 tabs, 2 Refill(s), Pharmacy: [facility], 1 tabs Oral Bedtime (once a day) Start Date: 02/25/15 Status: Ordered bumetanide 2 mg oral tablet 0.5 tabs, Oral, Daily, # 45 tabs, 2 Refill(s), Pharmacy: [facility], 0.5 tabs Oral Daily Start Date: 08/23/14 Status: Ordered latanoprost 0.005% ophthalmic solution 1 drops, Eye-Both, Bedtime (once a day), Please send 90 day supply quantity sufficient, # 3 Each, 2 Refill(s), Pharmacy: [facility] Start Date: 02/25/15 Status: Ordered levothyroxine 75 mcg (0.075 mg) oral tablet 75 mcg 1 tabs, Oral, Daily, # 90 tabs, 2 Refill(s), Pharmacy: [facility], 1 tabs Oral Daily Start Date: 02/25/15 Status: Ordered metoprolol tartrate 25 mg oral tablet 25 mg 1 tabs, Oral, BID, # 180 tabs, 0 Refill(s) Start Date: 08/29/15 Status: Ordered Nitrostat 0.4 mg sublingual tablet 1 tabs, SubLingual, q5min, as needed for chest pain, not to exceed 3 doses/15 min--if pain persists, seek medical attention, # 8,640 tabs, 1 Refill(s), Pharmacy: [facility], 1 tabs SubLingual q5min,PRN:as needed for chest pain, Instr:not to exceed... Start Date: 08/23/14 Status: Ordered omeprazole 40 mg oral delayed release capsule See Instructions, TAKE 1 CAPSULE EVERY DAY, # 90 caps, 1 Refill(s), eRx: [facility], TAKE 1 CAPSULE EVERY DAY Start Date: 05/06/15 Status: Ordered spironolactone 25 mg oral tablet 25 mg 1 tabs, Oral, BID, # 180 tabs, 2 Refill(s), Pharmacy: [facility], 1 tabs Oral BID Start Date: 02/25/15 Status: Ordered triamcinolone 0.1% topical cream See Instructions, APPLY TO AFFECTED AREA(S) TWICE DAILY, # 90 g, 2 Refill(s), eRx: [facility], APPLY TO AFFECTED AREA(S) TWICE DAILY Start Date: 07/19/15 Status: Ordered warfarin 2 mg oral tablet See Instructions, Take as directed per INR Right now patient on 3 tabs daily 90 day supply, # 270 tabs, 2 Refill(s), Pharmacy: [facility], Take as directed per INR; Right now patient on 3 tabs daily 90 day supply Start Date: 02/25/15 Status: Ordered Results No data available for this section Immunizations Vaccine Date Refusal Reason influenza virus vaccine, inactivated 08/29/15 influenza virus vaccine, live 05/23/14 influenza virus vaccine, live 05/16/13 pneumococcal 13-valent conjugate vaccine 08/29/15 zoster vaccine live 08/29/15 Procedures Procedure Date Related Diagnosis Body Site DM FOOT EXAM 01/20/12 Pacemaker1 01/09/10 Rt inguinal hernia2 2007 Cataract Left 2006 Cataract Right 2006 Adenomatous polyp 2006 Colonoscopy 2006 Knee replacement L 2004 Knee replacement R 2004 BREAST BIOPSY LEFT AND RIGHT 1996 Thyroid Surgery ANKUSH THYROID 1997 HERNIATED DISC L4-5 1995 Appendectomy 1974 gall bladder 1974 1PDr. Bryan QUACH - see Conversion Document 2Dr. Lm [place] - see Conversion Document. Social History Social History Type Response Smoking Status Never smoker Assessment and Plan No data available for this section
--- OUTSIDE RECORDS SUMMARY | 2016-10-30 07:36 | XMS REPORT | Referral Summary ---
Author Author [facility], [facility] Organization [facility] Address Unknown Phone Unavailable Care Team Providers Care Superintendent Production Name Role Phone Alfredo Montes Primary Care Physician [phone] Encounter VC Date(s): 10/08/15 - 10/08/15 [facility] [place], [address] [place] [address] Discharge Diagnosis: History of DVT (deep vein thrombosis) Discharge Disposition: 01-Home or Self Care Attending Physician: Alfredo Montes DO Admitting Physician: Alfredo Montes DO Vital Signs Most recent to 1 oldest [Reference Range]: Temperature Tympanic 36.7 degC [36.6-38.1 degC] (10/08/15 1:16 PM) Peripheral Pulse 85 bpm Rate [60-100 bpm] (10/08/15 1:16 PM) Blood Pressure 118/60 mmHg [90-140/60-90 mmHg] (10/08/15 1:16 PM) Problem List Condition Effective Dates Status [...] BEDTIME, # 90 tabs, 1 Refill(s), eRx: [facility], TAKE 1 TABLET AT BEDTIME Start Date: 05/06/15 Status: Ordered amitriptyline 50 mg oral tablet 50 mg 1 tabs, Oral, Bedtime (once a day), # 90 tabs, 2 Refill(s), Pharmacy: [facility], 1 tabs Oral Bedtime (once a day) Start Date: 02/25/15 Status: Ordered bumetanide 2 mg oral tablet 0.5 tabs, Oral, Daily, # 45 tabs, 2 Refill(s), Pharmacy: [facility], 0.5 tabs Oral Daily Start Date: 08/23/14 Status: Ordered latanoprost 0.005% ophthalmic solution 1 drops, Eye-Both, Bedtime (once a day), Please send 90 day supply quantity sufficient, # 3 Each, 2 Refill(s), Pharmacy: [facility] Start Date: 02/25/15 Status: Ordered levothyroxine 75 mcg (0.075 mg) oral tablet 75 mcg 1 tabs, Oral, Daily, # 90 tabs, 2 Refill(s), Pharmacy: [facility], 1 tabs Oral Daily [...] attention, # 8,640 tabs, 1 Refill(s), Pharmacy: [facility], 1 tabs SubLingual q5min,PRN:as needed for chest pain, Instr:not to exceed... Start Date: 08/23/14 Status: Ordered omeprazole 40 mg oral delayed release capsule See Instructions, TAKE 1 CAPSULE EVERY DAY, # 90 caps, 1 Refill(s), eRx: [facility], TAKE 1 CAPSULE EVERY DAY Start Date: 05/06/15 Status: Ordered spironolactone 25 mg oral tablet 25 mg 1 tabs, Oral, BID, # 180 tabs, 2 Refill(s), Pharmacy: [facility], 1 tabs Oral BID Start Date: 02/25/15 Status: Ordered triamcinolone 0.1% topical cream See Instructions, APPLY TO AFFECTED AREA(S) TWICE DAILY, # 90 g, 2 Refill(s), eRx: [facility], APPLY TO AFFECTED AREA(S) TWICE DAILY Start Date: 07/19/15 Status: Ordered warfarin 2 mg oral tablet See Instructions, Take as directed per INR Right now patient on 3 tabs daily 90 day supply, # 270 tabs, 2 Refill(s), Pharmacy: [facility], Take as directed per INR; Right now patient on 3 tabs daily 90 day supply Start Date: 02/25/15 Status: Ordered Results Hematology Most recent to 1 oldest [Reference Range]: WBC [4.8-10.8 10.8 10*3/uL 10*3/uL] (10/08/15 2:15 PM) RBC [4.00-5.20] 4.61 (10/08/15 2:15 PM) Hgb [12.0-16.0 14.1 gm/dL gm/dL] (10/08/15 2:15 PM) Hct [37.0-47.0 %] 44.0 % (10/08/15 2:15 PM) MCV [82.0-99.0 fL] 95.4 fL (10/08/15 2:15 PM) MCH [27.0-32.0 pg] 30.6 pg (10/08/15 2:15 PM) MCHC [32.0-36.0 32.0 gm/dL gm/dL] (10/08/15 2:15 PM) RDW [11.5-14.5 %] 15.9 % *HI* (10/08/15 2:15 PM) Platelet [150-400 270 10*3/uL 10*3/uL] (10/08/15 2:15 PM) MPV [8.8-14.8 fL] 10.1 fL (10/08/15 2:15 PM) Immature 0.5 % Granulocytes (10/08/15 2:15 PM) [0.0-1.0 %] Neutrophils [51-75 71 % %] (10/08/15 2:15 PM) Lymphocytes [20-46 18 % %] *LOW* (10/08/15 2:15 PM) Monocytes [4-11 %] 9 % (10/08/15 2:15 PM) Eosinophils [0-4 %] 1 % (10/08/15 2:15 PM) Basophils [0-2 %] 0 % (10/08/15 2:15 PM) Neutro Absolute 7.65 10*3 [1.90-7.00 10*3] *HI* (10/08/15 2:15 PM) Lymph Absolute 1.98 10*3 [0.80-3.30 10*3] (10/08/15 2:15 PM) Hernando Absolute 1.00 10*3 [0.30-1.00 10*3] (10/08/15 2:15 PM) Eos Absolute 0.06 10*3 [0.00-0.50 10*3] (10/08/15 2:15 PM) Baso Absolute 0.03 10*3 [0.00-0.20 10*3] (10/08/15 2:15 PM) Coagulation Most recent to 1 oldest [Reference Range]: PT Venous (10/08/15 2:15 PM) INR [0.8-1.2] 1.4 1 *HI* (10/08/15 2:15 PM) 1Result Comment: Normal (no anticoagulant): 0.8 - 1.2 Units Routine Therapeutic Range: 2.0 - 3.0 Units High Risk Therapeutic Range: 2.5 - 3.5 Units Chemistry Most recent to 1 oldest [Reference Range]: Sodium Lvl [135-144 139 mEq/L mEq/L] (10/08/15 2:15 PM) Potassium Lvl 4.3 mEq/L [3.5-5.2 mEq/L] (10/08/15 2:15 PM) Chloride [99-111 101 mEq/L mEq/L] (10/08/15 2:15 PM) CO2 [22-31 mEq/L] 27 mEq/L (10/08/15 2:15 PM) AGAP [3-20] 11 (10/08/15 2:15 PM) BUN [10-20 mg/dL] 27 mg/dL *HI* (10/08/15 2:15 PM) Glucose Lvl [70-99 110 mg/dL mg/dL] *HI* (10/08/15 2:15 PM) Creatinine Lvl 1.49 mg/dL [0.57-1.11 mg/dL] *HI* (10/08/15 2:15 PM) eGFR [>60 mL/min] 34 mL/min 1 *ABN* (10/08/15 2:15 PM) Calcium Lvl 9.6 mg/dL [8.9-10.5 mg/dL] (10/08/15 2:15 PM) Albumin Lvl [3.4-4.8 4.3 gm/dL gm/dL] (10/08/15 2:15 PM) Total Protein 7.4 gm/dL [6.2-8.1 gm/dL] (10/08/15 2:15 PM) Globulin [1.8-4.0 3.1 gm/dL gm/dL] (10/08/15 2:15 PM) ALT [0-55 U/L] 22 U/L (10/08/15 2:15 PM) AST [5-34 U/L] 24 U/L (10/08/15 2:15 PM) Alk Phos [40-150 87 U/L U/L] (10/08/15 2:15 PM) Bili Total [0.2-1.2 0.6 mg/dL mg/dL] (10/08/15 2:15 PM) 1Result Comment: Multiply eGFR results by 1.21 for race. Immunizations Vaccine Date Refusal Reason influenza virus vaccine, inactivated 08/29/15 influenza virus vaccine, live 05/23/14 influenza virus vaccine, live 05/16/13 pneumococcal 13-valent conjugate vaccine 08/29/15 zoster vaccine live 08/29/15 Procedures Procedure Date Related Diagnosis Body Site DM FOOT EXAM 01/20/12 Pacemaker1 01/09/10 Rt inguinal hernia2 2007 Cataract Left 2006 Cataract Right 2006 Adenomatous polyp 2006 Colonoscopy 2005 Knee replacement L 2004 Knee replacement R 2004 BREAST BIOPSY LEFT AND RIGHT 1996 Thyroid Surgery ANKUSH THYROID 1996 HERNIATED DISC L4-5 1995 Appendectomy 1974 gall bladder 1974 Mammogram3 1PDr. Bryan QUACH - see Conversion Document 2Dr. Lm Birdchita - see Conversion Document. 3Needs additional Imaging. See scanned document Social History Social History Type Response Smoking Status Never smoker Assessment and Plan Extracted from: Title: New diagnosis of bilateral Author: Alfredo Montes DO Date: 10/08/15 breast cancer Assessment/Plan History of DVT (deep vein thrombosis) 1. We will continue her on Coumadin therapy. We will check the INR today and adjust her medication accordingly. Is likely she will need to be back on the same dose she was taking previously which was 6 mg on Tuesdays and and 5 mg the rest of the week. 2. Additional labs ordered today to include CBC and complete metabolic profileto establish baselinesinceshe will be needing treatment for her breast cancer. Ordered: CBC w/ Differential Comprehensive Metabolic Panel Office Visit Level 4 Est 09509 Invasive ductal carcinoma of left breast 1. Pathology report discussed in detail with the patient, all questions were answered. 2. She was wanting to see Dr. Hallman for oncology. Referral was made. Ordered: CBC w/ Differential Comprehensive Metabolic Panel Office Visit Level 4 Est 13390 Invasive ductal carcinoma of right breast As above. Ordered: CBC w/ Differential Comprehensive Metabolic Panel Office Visit Level 4 Est 27543
--- OUTSIDE RECORDS SUMMARY | 2016-10-30 07:36 | XMS REPORT | Referral Summary ---
Author Author [facility], [facility] Organization [facility] Address Unknown Phone Unavailable Care Team Providers Care Traction Power Engineer Name Role Phone Alfredo Montes Primary Care Physician [phone] Encounter VC Date(s): 05/20/16 - 05/20/16 [facility], [address] [place] [address]- Discharge Diagnosis: Pre-op exam Discharge Diagnosis: Chronic CHF Discharge Diagnosis: Deep vein thrombosis (DVT) of left lower extremity Discharge Disposition: 01-Home or Self Care Attending Physician: Alfredo Montes DO Admitting Physician: Alfredo Montes DO Vital Signs Most recent to 1 oldest [Reference Range]: Temperature Tympanic 37.0 degC [36.6-38.1 degC] (05/20/16 9:58 AM) Peripheral Pulse 77 bpm Rate [60-100 bpm] (05/20/16 9:58 AM) Blood Pressure 110/68 mmHg [90-140/60-90 mmHg] (05/20/16 9:58 AM) Problem List Condition Effective Dates Status [...] BEDTIME, # 90 tabs, 1 Refill(s), Pharmacy: [facility], TAKE 1 TABLET AT BEDTIME Start Date: 11/07/15 Status: Ordered amitriptyline 50 mg oral tablet 50 mg 1 tabs, Oral, Bedtime (once a day), # 90 tabs, 2 Refill(s), Pharmacy: [facility], 1 tabs Oral Bedtime (once a day) Start Date: 11/07/15 Status: Ordered bumetanide 2 mg oral tablet 0.5 tabs, Oral, Daily, # 45 tabs, 2 Refill(s), Pharmacy: [facility], 0.5 tabs Oral Daily Start Date: 08/23/14 Status: Ordered Calcium 600+D 2, Oral, Daily, 0 Refill(s) Start Date: 05/20/16 Status: Ordered digoxin 125 mcg (0.125 mg) oral tablet 125 mcg 1 tabs, Oral, Daily, # 30 tabs, 0 Refill(s) Start Date: 05/20/16 Status: Ordered Entresto 1 tabs, Oral, BID, 0 Refill(s) Start Date: 03/27/16 Status: Ordered latanoprost 0.005% ophthalmic solution 1 drops, Eye-Both, Bedtime (once a day), Please send 90 day supply quantity sufficient, # 3 Each, 2 Refill(s), Pharmacy: [facility] Start Date: 11/07/15 Status: Ordered letrozole 2.5 mg oral tablet 2.5 mg 1 tabs, Oral, Daily, # 30 tabs, 0 Refill(s) Start Date: 03/27/16 Stop Date: 04/26/16 Status: Ordered levothyroxine 75 mcg (0.075 mg) oral tablet 75 mcg 1 tabs, Oral, Daily, # 90 tabs, 2 Refill(s), Pharmacy: [facility], 1 tabs Oral Daily Start Date: 11/07/15 Status: Ordered Metoprolol Tartrate 25 mg oral tablet See Instructions, TAKE 1 TABLET TWICE DAILY, # 180 tabs, 2 Refill(s), eRx: [facility], TAKE 1 TABLET TWICE DAILY Start Date: 03/05/16 Status: Ordered Nitrostat 0.4 mg sublingual tablet 1 tabs, SubLingual, q5min, as needed for chest pain, not to exceed 3 doses/15 min--if pain persists, seek medical attention, # 8,640 tabs, 1 Refill(s), Pharmacy: [facility], 1 tabs SubLingual q5min,PRN:as needed for chest pain, Instr:not to exceed... Start Date: 08/23/14 Status: Ordered omeprazole 40 mg oral delayed release capsule See Instructions, TAKE 1 CAPSULE EVERY DAY, # 90 caps, 1 Refill(s), Pharmacy: [facility], TAKE 1 CAPSULE EVERY DAY Start Date: 11/07/15 Status: Ordered PreserVision Oral, Daily, 0 Refill(s) Start Date: 05/20/16 Status: Ordered spironolactone 25 mg oral tablet 25 mg 1 tabs, Oral, BID, # 180 tabs, 1 Refill(s), Pharmacy: [facility], 1 tabs Oral BID Start Date: 11/07/15 Status: Ordered triamcinolone 0.1% topical cream See Instructions, APPLY TO AFFECTED AREA(S) TWICE DAILY, # 90 g, 2 Refill(s), eRx: [facility], APPLY TO AFFECTED AREA(S) TWICE DAILY Start Date: 07/19/15 Status: Ordered triamcinolone 0.1% topical cream See Instructions, APPLY TO AFFECTED AREA(S) TWICE DAILY, # 90 g, 2 Refill(s), Pharmacy: [facility] Start Date: 11/07/15 Stop Date: 11/06/16 Status: Ordered Vitamin D with Minerals oral tablet See Instructions, VITAMIN D3 400 IU 2 DAILY, 0 Refill(s) Start Date: 05/20/16 Status: Ordered Xarelto 20 mg oral tablet 20 mg 1 tabs, Oral, qPM, # 30 tabs, 0 Refill(s) Start Date: 03/27/16 Status: Ordered Results No data available for this section Immunizations Vaccine Date Refusal Reason influenza virus vaccine, inactivated 05/20/16 influenza virus vaccine, inactivated 08/29/15 influenza virus vaccine, live 05/23/14 influenza virus vaccine, live 05/16/13 pneumococcal 13-valent conjugate vaccine 08/29/15 zoster vaccine live 08/29/15 Procedures Procedure Date Related Diagnosis Body Site Revision of mastectomy scar1 01/20/16 Bilateral mastectomy2 12/19/15 History of combination internal cardiac 10/09/14 defibrillator and pacemaker3 DM FOOT EXAM 01/20/12 Pacemaker4 01/09/10 Rt inguinal hernia5 2007 Cataract Left 2006 Cataract Right 2006 Adenomatous polyp 2005 Colonoscopy 2006 Knee replacement L 2004 Knee [...] Invasive ductal carcinoma, SBR/[place] Grade I 3[facility] 4PADr. Bryan OLIVARES - see Conversion Document 5Dr. Lm in [place] - see Conversion Document. 6Needs additional Imaging. See scanned document Social History Social History Type Response Smoking Status Never smoker Assessment and Plan Extracted from: Title: Office Visit Note Author: Alfredo Montes DO Date: 05/20/16 Assessment/Plan 1.Pre-op exam 1. Orders from Dr. Pelayo reviewed. 2. We will send her to graphics specialist and requested cardiac clearance given her history of CHF. 3. Following report from graphics specialist we will order lab work to consist of CBC and complete metabolic profile. 4. Once the above information has been gathered we should be able to clear her for surgery. Ordered: CBC w/ Differential Comprehensive Metabolic Panel Office Visit Level 5 Est 77073 2.Chronic CHF 1. Continue with recommendations as per graphics specialist. 2. Continue current medications 3. Low-salt diet recommended Ordered: Office Visit Level 5 Est 77706 3.Deep vein thrombosis (DVT) of left lower extremity 1. Continue with Xarelto 20 mg daily. Since this is her second DVT, I anticipate that she will be in this medication long-term. Ordered: Office Visit Level 5 Est 49820 Needs flu shot Flu vaccination given today.
--- OUTSIDE RECORDS SUMMARY | 2016-10-30 07:36 | XMS REPORT | Referral Summary ---
Author Author [facility] Organization [facility] Address Unknown Phone Unavailable Care Team Providers Care Flooring Helper Name Role Phone BellAlfredo mayer Primary Care Physician [phone] Encounter VC Date(s): 12/17/15 - 12/17/15 [facility] [address] [place] [address] [place] [address] Discharge Diagnosis: Bilateral breast cancer Discharge Disposition: 01-Home or Self Care Attending Physician: Eddie Chris MD Admitting Physician: Eddie Chris MD Vital Signs Most recent to 1 oldest [Reference Range]: Temperature Oral 36.2 degC [35.8-37.3 degC] (12/17/15 3:14 PM) Peripheral Pulse 88 bpm Rate [60-100 bpm] (12/17/15 3:14 PM) Blood Pressure 140/84 mmHg [90-140/60-90 mmHg] (12/17/15 3:14 PM) Problem List Condition Effective Dates Status [...] BEDTIME, # 90 tabs, 1 Refill(s), Pharmacy: [facility], TAKE 1 TABLET AT BEDTIME Start Date: 11/07/15 Status: Ordered amitriptyline 50 mg oral tablet 50 mg 1 tabs, Oral, Bedtime (once a day), # 90 tabs, 2 Refill(s), Pharmacy: [facility], 1 tabs Oral Bedtime (once a day) Start Date: 11/07/15 Status: Ordered bumetanide 2 mg oral tablet 0.5 tabs, Oral, Daily, # 45 tabs, 2 Refill(s), Pharmacy: [facility], 0.5 tabs Oral Daily Start Date: 08/23/14 Status: Ordered latanoprost 0.005% ophthalmic solution 1 drops, Eye-Both, Bedtime (once a day), Please send 90 day supply quantity sufficient, # 3 Each, 2 Refill(s), Pharmacy: [facility] Start Date: 11/07/15 Status: Ordered levothyroxine 75 mcg (0.075 mg) oral tablet 75 mcg 1 tabs, Oral, Daily, # 90 tabs, 2 Refill(s), Pharmacy: [facility], 1 tabs Oral Daily Start Date: 11/07/15 Status: Ordered metoprolol tartrate 25 mg oral tablet 25 mg 1 tabs, Oral, BID, # 60 tabs, 2 Refill(s), Pharmacy: [facility] Start Date: 11/07/15 Status: Ordered minocycline 100 mg oral capsule 100 mg 1 caps, Oral, BID, # 20 caps, 0 Refill(s) Start Date: 12/06/15 Stop Date: 12/16/15 Status: Ordered Nitrostat 0.4 mg sublingual tablet 1 tabs, SubLingual, q5min, as needed for chest pain, not to exceed 3 doses/15 min--if pain persists, seek medical attention, # 8,640 tabs, 1 Refill(s), [facility], 1 tabs SubLingual q5min,PRN:as needed for chest pain, Instr:not to exceed... Start Date: 08/23/14 Status: Ordered Irving 5 mg-325 mg oral tablet 1 tabs, Oral, q6hr, as needed for pain, # 15 tabs, 0 Refill(s) Start Date: 11/18/15 Status: Ordered omeprazole 40 mg oral delayed release capsule See Instructions, TAKE 1 CAPSULE EVERY DAY, # 90 caps, 1 Refill(s), Pharmacy: [facility], TAKE 1 CAPSULE EVERY DAY Start Date: 11/07/15 Status: Ordered spironolactone 25 mg oral tablet 25 mg 1 tabs, Oral, BID, # 180 tabs, 1 Refill(s), Pharmacy: [facility], 1 tabs Oral BID Start Date: 11/07/15 Status: Ordered triamcinolone 0.1% topical cream See Instructions, APPLY TO AFFECTED AREA(S) TWICE DAILY, # 90 g, 2 Refill(s), eRx: [facility], APPLY TO AFFECTED AREA(S) TWICE DAILY Start Date: 07/19/15 Status: Ordered triamcinolone 0.1% topical cream See Instructions, APPLY TO AFFECTED AREA(S) TWICE DAILY, # 90 g, 2 Refill(s), Pharmacy: [facility] Start Date: 11/07/15 Stop Date: 11/06/16 Status: Ordered warfarin 2 mg oral tablet See Instructions, Take as directed per INR Right now patient on 3 tabs daily 90 day supply, # 270 tabs, 2 Refill(s), Pharmacy: [facility] , Take as directed per [...] hernia3 2007 Cataract Left 2006 Cataract Right 2007 Adenomatous polyp 2006 Colonoscopy 2006 Knee replacement L 2005 Knee replacement R 2004 BREAST BIOPSY LEFT AND RIGHT 1996 Thyroid Surgery ANKUSH THYROID 1996 HERNIATED DISC L4-5 1995 Appendectomy 1974 gall bladder 1974 History of combination internal cardiac defibrillator and pacemaker Mammogram4 1[facility] 2PDr. Bryan QUACH - see Conversion Document 3Dr. Lm in [place] - see Conversion Document. 4Needs additional Imaging. See scanned document Social History Social History Type Response Smoking Status Never smoker Assessment and Plan Extracted from: Title: Office Visit Note Author: Eddie Chris MD Date: 12/17/15 Assessment/Plan 1.Bilateral breast cancer Ordered: Office Visit Level 4 Est 89749 Plan: Bilateral Mastectomies, Bilateral Axillary Peck Lymph Node Biopsies, Possible Bilateral Axillary Dissections. I did review my prior office note from November 06, 2015. Reviewed her prior pathology reportfrom October 01, 2015 revealinginvasive ductal carcinoma involving both the left breast and right breast. I did speak with her plc engineer/transport corps officer by phonepreviously. I once again went over with the patientmy recommendations and specificallywhat bilateral mastectomies, bilateral sentinel lymph node biopsies,possible bilateral axillarydissectionentailedand its associated risk which included but was not inclusive of bleeding, infection,potential for development of postoperative seroma,potential for flap necrosis,potential for injuryto structures within the axilla. Patient understood and was separately scheduled. Patient will need to be off her Coumadin prior to her procedure.
--- OUTSIDE RECORDS SUMMARY | 2016-10-30 07:36 | XMS REPORT | Referral Summary ---
Author Author [facility], [facility] Organization [facility] Address Unknown Phone Unavailable Care Team Providers Care Sfdc Developer Name Role Phone Alfredo Montes Primary Care Physician [phone] Encounter VC Date(s): 06/09/16 - 06/09/16 [facility] [place], [address] [place] [address] Discharge Diagnosis: Leg edema Discharge Diagnosis: Mass of left axilla Discharge Diagnosis: Chronic CHF Discharge Disposition: 01-Home or Self Care Attending Physician: Alfredo Montes DO Admitting Physician: Alfredo Montes DO Vital Signs Most recent to 1 oldest [Reference Range]: Temperature Tympanic 36.9 degC [36.6-38.1 degC] (06/09/16 3:16 PM) Peripheral Pulse 83 bpm Rate [60-100 bpm] (06/09/16 3:16 PM) Blood Pressure 119/53 mmHg [90-140/60-90 mmHg] (06/09/16 3:16 PM) Problem List Condition Effective Dates Status [...] Active Medications allopurinol 300 mg oral tablet 300 mg 1 tabs, Oral, Daily, X 90 days, # 90 tabs, 3 Refill(s), Pharmacy: [facility], 1 tabs Oral Daily,x90 days Start Date: 06/09/16 Stop Date: 06/04/17 Status: Ordered amitriptyline 50 mg oral tablet 50 mg 1 tabs, Oral, Bedtime (once a day), # 90 tabs, 2 Refill(s), Pharmacy: [facility], 1 tabs Oral Bedtime (once a day),x90 days Start Date: 06/09/16 Stop Date: 03/06/17 Status: Ordered bumetanide 1 mg oral tablet 1 mg 1 tabs, Oral, BID, # 180 tabs, 4 Refill(s), Pharmacy: [id number], 1 tabs Oral BID,x90 days Start Date: 06/09/16 Stop Date: 09/02/17 Status: Ordered Calcium 600+D 2, Oral, Daily, 0 Refill(s) Start Date: 05/20/16 Status: Ordered digoxin 125 mcg (0.125 mg) oral tablet 250 mcg 2 tabs, Oral, Daily, # 180 tabs, 1 Refill(s), Pharmacy: [facility], 2 tabs Oral Daily,x90 days Start Date: 06/09/16 Stop Date: 12/06/16 Status: Ordered Entresto 24 mg-26 mg oral tablet 1 tabs, Oral, BID, # 30 tabs, 0 Refill(s), other reason (Rx) Start Date: 06/09/16 Status: Ordered latanoprost 0.005% ophthalmic solution 1 drops, Eye-Both, Bedtime (once a day), Please send 90 day supply quantity sufficient, # 3 Each, 2 Refill(s), Pharmacy: [facility] Start Date: 06/09/16 Status: Ordered letrozole 2.5 mg oral tablet 2.5 mg 1 tabs, Oral, Daily, # 30 tabs, 0 Refill(s) Start Date: 03/27/16 Stop Date: 04/26/16 Status: Ordered levothyroxine 75 mcg (0.075 mg) oral tablet 75 mcg 1 tabs, Oral, Daily, # 90 tabs, 2 Refill(s), Pharmacy: [facility], 1 tabs Oral Daily Start Date: 06/09/16 Status: Ordered Metoprolol Tartrate 25 mg oral tablet 25 mg 1 tabs, Oral, BID, # 180 tabs, 3 Refill(s), Pharmacy: [facility], 1 tabs Oral BID,x90 days Start Date: 06/09/16 Stop Date: 06/04/17 Status: Ordered Nitrostat 0.4 mg sublingual tablet 1 tabs, SubLingual, q5min, as needed for chest pain, not to exceed 3 doses/15 min--if pain persists, seek medical attention, # 8,640 tabs, 1 Refill(s), Pharmacy: [facility], 1 tabs SubLingual q5min,PRN:as needed for chest pain, Instr:not to exceed... Start Date: 08/23/14 Status: Ordered omeprazole 40 mg oral delayed release capsule 40 mg 1 caps, Oral, Daily, X 90 days, # 90 caps, 3 Refill(s), Pharmacy: [facility], 1 caps Oral Daily,x90 days Start Date: 06/09/16 Stop Date: 06/04/17 Status: Ordered PreserVision Oral, Daily, 0 Refill(s) Start Date: 05/20/16 Status: Ordered spironolactone 25 mg oral tablet 25 mg 1 tabs, Oral, BID, # 180 tabs, 3 Refill(s), Pharmacy: [facility], 1 tabs Oral BID,x90 days Start Date: 06/09/16 Stop Date: 06/04/17 Status: Ordered triamcinolone 0.1% topical cream See Instructions, APPLY TO AFFECTED AREA(S) TWICE DAILY, # 90 g, 2 Refill(s), eRx: [facility], APPLY TO AFFECTED AREA(S) TWICE DAILY Start Date: 07/19/15 Status: Ordered triamcinolone 0.1% topical cream See Instructions, APPLY TO AFFECTED AREA(S) TWICE DAILY, # 90 g, 2 Refill(s), Pharmacy: [facility] Start Date: 11/07/15 Stop Date: 11/06/16 Status: Ordered Vitamin D with Minerals oral tablet See Instructions, VITAMIN D3 400 IU 2 DAILY, 0 Refill(s) Start Date: 05/20/16 Status: Ordered Xarelto 20 mg oral tablet 20 mg 1 tabs, Oral, qPM, # 30 tabs, 0 Refill(s), other reason (Rx), 1 tabs Oral qPM Start Date: 06/09/16 Status: Ordered Results No data available for [...] Knee replacement L 2004 Knee replacement R 2005 BREAST BIOPSY LEFT AND RIGHT 1996 Thyroid Surgery ANKUSH THYROID 1997 HERNIATED DISC L4-5 1995 Appendectomy 1974 gall bladder 1974 History of combination internal cardiac defibrillator and pacemaker Mammogram6 1right 2Sentinel nods negative on frozen section.Right node with single focus of micrometastatis on permanent sections. 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 Bryan OLIVARES - see Conversion Document 5Dr. Lm in [place] - see Conversion Document. 6Needs additional Imaging. See scanned document Social History Social History Type Response Smoking Status Never smoker Assessment and Plan Extracted from: Title: Office Visit Note Author: Alfredo Montes DO Date: 06/09/16 Assessment/Plan Chronic CHF 1. Continue with recommendations as per cardiology. 2. Medications are refilled 3. Continue with low-salt diet Ordered: bumetanide, 1 mg 1 tabs, Oral, BID, # 180 tabs, 4 Refill(s), Pharmacy: [facility] [id number], 1 tabs Oral BID,x90 days Leg edema 1. Edema is well controlled 2. Continue with Bumex as per command center analyst's recommendation 3. Follow-up if worsening presentation Ordered: bumetanide, 1 mg 1 tabs, Oral, BID, # 180 tabs, 4 Refill(s), Pharmacy: [facility] [id number], 1 tabs Oral BID,x90 days Office Visit Level 4 Est 45185 Mass of left axilla 1. CT of the chest was reviewed. 2. We will discuss this with Dr. Love tomorrow if he agrees with surgical consult then we will refer the patient to Dr. Valencia. Ordered: bumetanide, 1 mg 1 tabs, Oral, BID, # 180 tabs, 4 Refill(s), Pharmacy: [facility] [id number], 1 tabs Oral BID,x90 days Office Visit Level 4 Est 44164 Over 40 minutes were spent [id number] with this patient today
--- OUTSIDE RECORDS SUMMARY | 2016-10-30 07:36 | XMS REPORT | Continuity of Care Document ---
Author Author [facility] Organization [facility] Address Unknown Phone Unavailable Allergies Active Description Code Type Severity Reaction Onset Reported/Identified Relationship to Patient Clinical Status Yes adhesive tape Drug Allergy Unknown SKIN IRRITATION 05/21/2010 Yes adhesive tape adhesive tape Drug Allergy Unknown SKIN IRRITATION 05/21/2010 Yes codeine Drug Allergy Unknown NAUSEA 06/03/2012 Yes codeine codeine Drug Allergy Unknown NAUSEA 06/03/2012 Medications Problems Procedures Results Test Result Range PROTHROMBIN TIME WITH INR - 05/20/15 11:59 INTERNATIONAL NORMAL RATIO 1.9 0.9-1.1 PROTHROMBIN TIME 21.8 sec 9.3-12.2 HELICOBACTER UREASE SCREEN - 05/20/15 13:10 Microbiology Encounters ACCT No. Visit Date/Time Discharge Status Pt. Type Provider Facility Loc./Unit Complaint [id number] 10/27/2013 11:30:00 2013 11:30:00 Art Cyr DO [facility]
--- OUTSIDE RECORDS SUMMARY | 2016-10-30 07:36 | XMS REPORT | Referral Summary ---
Author Author [facility] Organization [facility] Address Unknown Phone Unavailable Care Team Providers Care Fashion Illustrator Name Role Phone Alfredo Montes Primary Care Physician [phone] Encounter VC Date(s): 01/27/16 - 01/27/16 [facility], [facility] [address] [place] [address] [place] [address]- Discharge Diagnosis: Encounter for change or removal of drains Discharge Disposition: 01-Home or Self Care Attending Physician: Chapis Wolff APRN Admitting Physician: Chapis Wolff APRN Vital Signs Most recent to 1 oldest [Reference Range]: Temperature Tympanic 37.4 degC [36.6-38.1 degC] (01/27/16 8:37 AM) Problem List Condition Effective Dates Status [...] BEDTIME, # 90 tabs, 1 Refill(s), Pharmacy: [facility], TAKE 1 TABLET AT BEDTIME Start Date: 11/07/15 Status: Ordered amitriptyline 50 mg oral tablet 50 mg 1 tabs, Oral, Bedtime (once a day), # 90 tabs, 2 Refill(s), [facility], 1 tabs Oral Bedtime (once a day) Start Date: 11/07/15 Status: Ordered bumetanide 2 mg oral tablet 0.5 tabs, Oral, Daily, # 45 tabs, 2 Refill(s), Pharmacy: [facility], 0.5 tabs Oral Daily Start Date: 08/23/14 Status: Ordered latanoprost 0.005% ophthalmic solution 1 drops, Eye-Both, Bedtime (once a day), Please send 90 day supply quantity sufficient, # 3 Each, 2 Refill(s), [facility] Start Date: 11/07/15 Status: Ordered levothyroxine 75 mcg (0.075 mg) oral tablet 75 mcg 1 tabs, Oral, Daily, # 90 tabs, 2 Refill(s), Pharmacy: [facility], 1 tabs Oral Daily Start Date: 11/07/15 Status: Ordered metoprolol tartrate 25 mg oral tablet 25 mg 1 tabs, Oral, BID, # 60 tabs, 2 Refill(s), [facility] Start Date: 11/07/15 Status: Ordered minocycline 100 mg oral capsule 100 mg 1 caps, Oral, BID, # 20 caps, 0 Refill(s) Start Date: 12/06/15 Stop Date: 12/16/15 Status: Ordered Nitrostat 0.4 mg sublingual tablet 1 tabs, SubLingual, q5min, as needed for chest pain, not to exceed 3 doses/15 min--if pain persists, seek medical attention, # 8,640 tabs, 1 Refill(s), [facility], 1 tabs SubLingual q5min,PRN:as needed for chest pain, Instr:not to exceed... Start Date: 08/23/14 Status: Ordered omeprazole 40 mg oral delayed release capsule See Instructions, TAKE 1 CAPSULE EVERY DAY, # 90 caps, 1 Refill(s), Pharmacy: [facility], TAKE 1 CAPSULE EVERY DAY Start Date: 11/07/15 Status: Ordered spironolactone 25 mg oral tablet 25 mg 1 tabs, Oral, BID, # 180 tabs, 1 Refill(s), Pharmacy: [facility], 1 tabs Oral BID Start Date: 11/07/15 Status: Ordered triamcinolone 0.1% topical cream See Instructions, APPLY TO AFFECTED AREA(S) TWICE DAILY, # 90 g, 2 Refill(s), eRx: [facility], APPLY TO AFFECTED AREA(S) TWICE DAILY Start Date: 07/19/15 Status: Ordered triamcinolone 0.1% topical cream See Instructions, APPLY TO AFFECTED AREA(S) TWICE DAILY, # 90 g, 2 Refill(s), Pharmacy: [facility] Start Date: 11/07/15 Stop Date: 11/06/16 Status: Ordered warfarin 2 mg oral tablet See Instructions, Take as directed per INR Right now patient on 3 tabs daily 90 day supply, # 270 tabs, 2 Refill(s), Pharmacy: [facility] , Take as directed [...] Invasive ductal carcinoma, 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 Bryan OLIVARES - see Conversion Document 5Dr. Lm in [place] - see Conversion Document. 6Needs additional Imaging. See scanned document Social History Social History Type Response Smoking Status Never smoker Assessment and Plan Extracted from: Title: Office Visit Note Author: Chapis Wolff APRN Date: 01/27/16
--- OUTSIDE RECORDS SUMMARY | 2016-10-30 07:37 | XMS REPORT | Referral Summary ---
Author Author [facility], [facility] Organization [facility] Address Unknown Phone Unavailable Care Team Providers Care Cloud Software Engineer Name Role Phone BellAlfredo mayer Primary Care Physician [phone] Encounter VC Date(s): 04/24/15 - 04/24/15 [facility] [place], [address] [place] [address]- Discharge Diagnosis: Coronary artery disease Discharge Diagnosis: Benign essential hypertension Discharge Diagnosis: Stage III chronic kidney disease Discharge Disposition: 01-Home or Self Care Attending Physician: Sukumar Arevalo MD Admitting Physician: Sukumar Arevalo MD Vital Signs Most recent to 1 oldest [Reference Range]: Temperature Tympanic 37.3 degC [36.6-38.1 degC] (04/24/15 3:06 PM) Blood Pressure 126/74 mmHg [90-140/60-90 mmHg] (04/24/15 3:06 PM) Problem List Condition Effective Dates Status [...] BEDTIME, # 90 tabs, 1 Refill(s), eRx: [facility], TAKE 1 TABLET AT BEDTIME Start Date: 05/06/15 Status: Ordered amitriptyline 50 mg oral tablet 50 mg 1 tabs, Oral, Bedtime (once a day), # 90 tabs, 2 Refill(s), Pharmacy: [facility], 1 tabs Oral Bedtime (once a day) Start Date: 02/25/15 Status: Ordered bumetanide 2 mg oral tablet 0.5 tabs, Oral, Daily, # 45 tabs, 2 Refill(s), Pharmacy: [facility], 0.5 tabs Oral Daily Start Date: 08/23/14 Status: Ordered latanoprost 0.005% ophthalmic solution 1 drops, Eye-Both, Bedtime (once a day), Please send 90 day supply quantity sufficient, # 3 Each, 2 Refill(s), Pharmacy: [facility] Start Date: 02/25/15 Status: Ordered levothyroxine 75 mcg (0.075 mg) oral tablet 75 mcg 1 tabs, Oral, Daily, # 90 tabs, 2 Refill(s), Pharmacy: [facility], 1 tabs Oral Daily [...] attention, # 8,640 tabs, 1 Refill(s), Pharmacy: [facility], 1 tabs SubLingual q5min,PRN:as needed for chest pain, Instr:not to exceed... Start Date: 08/23/14 Status: Ordered omeprazole 40 mg oral delayed release capsule See Instructions, TAKE 1 CAPSULE EVERY DAY, # 90 caps, 1 Refill(s), eRx: [facility], TAKE 1 CAPSULE EVERY DAY Start Date: 05/06/15 Status: Ordered spironolactone 25 mg oral tablet 25 mg 1 tabs, Oral, BID, # 180 tabs, 2 Refill(s), Pharmacy: [facility], 1 tabs Oral BID Start Date: 02/25/15 Status: Ordered triamcinolone 0.1% topical cream See Instructions, APPLY TO AFFECTED AREA(S) TWICE DAILY, # 90 g, 2 Refill(s), eRx: [facility], APPLY TO AFFECTED AREA(S) TWICE DAILY Start Date: 07/19/15 Status: Ordered warfarin 2 mg oral tablet See Instructions, Take as directed per INR Right now patient on 3 tabs daily 90 day supply, # 270 tabs, 2 Refill(s), Pharmacy: [facility], Take as directed per [...] QUACH - see Conversion Document 2Dr. Lm Sandoval - see Conversion Document. 3Needs additional Imaging. See scanned document Social History Social History Type Response Smoking Status Never smoker Assessment and Plan Extracted from: Title: Office Visit Note Author: Sukumar Arevalo MD Date: 04/24/15 Assessment/Plan Benign essential hypertension Ordered: Basic Metabolic Panel Coronary artery disease Stage III chronic kidney disease Plan: We discussed drinking plenty of liquids and avoiding NSAIDs and monitoring kidneys every 3 months. If you're developing any problems when she to call or follow-up sooner. Otherwise follow-up in 3 months for med checkup. Orders: PT
--- OUTSIDE RECORDS SUMMARY | 2016-10-30 07:37 | XMS REPORT | Continuity of Care Document ---
Author Author [facility] Organization [facility] Address Unknown Phone Unavailable Support Name Relationship Address Phone MONY FELIZ FACS, MD Caregiver [address] [place] [address] [place] [address] Unavailable MONY FELIZ FACS, MD Caregiver [address] [place] [address] [place] [address] Unavailable VIKY CANAS DO Caregiver [address] [place] [address] [place] [address] Unavailable ISRRAEL ZUNIGA Next Of Kin Unknown [phone] CP Insurance Providers Guarantor Kim Zuniga Address [address] [address] Email DENIED/NO TO PT PORTAL Payer Medicare Policy Number [id number] Subscriber's Name Kim Zuniga Relationship 18 Self Effective Date 04 Payer Other A Insurance Policy Number [id number] Subscriber's Name Kim Zuniga Relationship 18 Self Advance Directives Directive Response Recorded Date/Time Ordered Resuscitation Status Full Code 12/18/15 3:41pm Resuscitation Documents on File No 12/19/15 8:00pm DPOA for Healthcare Only No 12/19/15 8:00pm Problems Active Problems Medical Problem Onset Date [...] Mg Tablet 1-2 Mg Oral Daily 11/16/15 Cephalexin (Keflex) 500 Mg Capsule 1 Cap Oral Four Times Daily 7 Days 28 Capsule 12/20/15 Hydrocodone/Acetaminophen ([place] 5-325 Tablet) 1 Each Tablet 1-2 Tab Oral Every 5 Hours as needed for Pain 20 Tablet 12/20/15 Latanoprost 2.5 Ml Drops 1 Drop Both Eyes Bedtime 11/16/15 Levothyroxine Sodium 75 Mcg Tablet 75 Mcg Oral Bedtime 11/16/15 Metoprolol Tartrate 25 Mg Tablet 25 Mg Oral Twice A Day 11/16/15 Nitroglycerin (Nitrotab) 0.4 Mg Tab.subl 0.4 Mg Sublingual Every 5 Minutes X 3 05/19/10 Omeprazole (Prilosec) 40 Mg Capsule. 40 Mg Oral Bedtime Spironolactone 25 Mg Tablet 25 Mg Oral Twice A Day 11/16/15 Triamcinolone (Triamcinolone Acetonide) 15 Applic/15 G Cr 1 Applic Topically Twice A Day 11/16/15 Vit A/C/E Ac/Znox/Cupric Oxide (Eye Vitamin-Minerals Tablet) 1 Each Tablet 1 Tab Oral Twice A Day 11/16/15 Past Home Medications Medication Directions Ordered Status Amlodipine Besylate (Norvasc) 10 Mg Tablet, 10 Mg Oral Daily 12/23/08 Discontinued Cholecalciferol (Vitamin D) 400 Unit Capsule, 12/23/08 Discontinued Duloxetine Hcl (Cymbalta) 60 Mg Capsule.dr, Daily 12/23/08 Discontinued Esomeprazole Mag Trihydrate (Nexium) 40 Mg Capsule.dr, 40 Mg Oral 12/23/08 Discontinued Flaxseed (Flaxseed Oil) 1,000 Mg Capsule, Daily 12/23/08 Discontinued Ipratropium Heidrick (Atrovent Hfa) 12.9 Gm Aer.w.adap, Every 6 [...] Problem Response Recorded Date/Time Onset Date Status Hx Substance Use No 12/18/2015 9:49am Not Applicable Not Applicable Hx Alcohol Use No 12/19/2015 10:27am Not Applicable Not Applicable Has the pt used tobacco in the last 12 months No 12/19/2015 8:00pm Not Applicable Not Applicable Tobacco Usage none 11/16/2015 11:21am Not Applicable Not Applicable Query Response Start Date Stop Date Smoking Status Never smoker Hospital Discharge Instructions Instructions: Care Instructions: Reason for Hospitalization: BILATERAL MASTECTOMY I was in the hospital because (patient own words): BILATERAL MASTECTOMY Discharge Diet: Resume your usual diet as tolerated. Discharge Activity: Do not drive, operate machinery for 24 hours after surgery or while taking pain medication. Follow Up Appointments: Follow up with Dr. Feliz WednesdayDecember 26. Pending Lab / Results: Will review at f/u apt Wound/Incision Care: Reapply dressing as needed. Give SUE instructions Notify Physician If: 1. Call your surgeon if you are having problems relating to your surgery at [phone]. 2. Problems such as: Temp above 101.5 degrees You develop redness, excessive swelling of the incision, increasing pain or excessive foul smelling drainage. 3. If the office is closed, call [facility] at [phone] and have your Surgeon paged. Condition at time of discharge: Good Plan of Care Discharge Date 12/21/15 4:35pm Disposition 01 DISCHARGED HOME, SELF-CARE Instructions/Education Provided DI for Mastectomy Prescriptions See Medication Section Care Plan and Goals See Discharge Instructions Section Functional Status Query Response Date Recorded Mobility Status Ambulatory w/assist December 21, 2015 1:36pm Assistive Devices Front Wheeled Walker December 21, 2015 1:36pm Activity Limitations None December 21, 2015 1:36pm Feeding Ability Independent December 21, 2015 1:36pm Toileting Ability Independent December 21, 2015 1:36pm Grooming Ability Independent December 21, 2015 1:36pm Dressing Ability Independent December 21, 2015 1:36pm Driving Ability Dependent December 21, 2015 1:36pm Housework Ability Assist December 21, 2015 1:36pm Meal Preparation Ability Assist December 21, 2015 1:36pm Stair Climbing Ability Assist December 21, 2015 1:36pm Ability to complete ADL's impeded by Impaired Mobility December 21, 2015 1:36pm Cognitive/Perceptual Impairments Impaired vision December 21, 2015 1:36pm Allergies, Adverse Reactions, Alerts Allergen Type Severity Reaction Status Last Updated Codeine Allergy Severe COULDN'T BREATH,HEART RACING Active 12/22/08 Immunizations Query Response on File Recorded Date/Time Hx Influenza Vaccination Y SEP 2015 12/19/15 8:00pm Hx Pneumococcal Vaccination Y 201012/19/15 8:00pm Hx Tetanus, Diptheria, Pertussis Y MORE THAN 5 YRS. AGO 12/22/08 5:47pm Hx Influenza Vaccination Y SEP 2015 12/19/15 8:00pm Hx Tetanus, Diptheria, Pertussis Y MORE THAN 5 YRS. AGO 12/22/08 5:47pm Influenza Vaccine Hx SEP 2015 12/21/15 12:31pm Vital Signs Acute Vital Signs Vital Response Date/Time Temperature (Fahrenheit) 96.8 deg F (96.8 - 99.1) 12/21/2015 12:31pm Temperature (Calculated Celsius) 36.43791 degrees C (36.0 - 37.3) 12/21/2015 12:31pm Temperature Source Temporal 12/19/2015 6:38pm Pulse Rate (adult) 64 bpm (60 - 100) 12/21/2015 12:31pm Respiratory Rate 16 breaths/min (10 - 20) 12/21/2015 12:31pm O2 Sat by Pulse Oximetry 97 % (90 - 100) 12/21/2015 12:31pm Oxygen Delivery Method Nasal Cannula 12/21/2015 3:43pm Oxygen Delivery Method Nasal Cannula 12/21/2015 12:31pm Oxygen Flow Rate 3.00 L/min 12/21/2015 3:43pm Fraction of Inspired Oxygen (FIO2) 30 % 12/20/2015 7:04am Blood Pressure 144/65 mm Hg 12/21/2015 12:31pm Blood Pressure Source Automatic Cuff 12/21/2015 12:31pm Height (Feet) 5 feet 12/20/2015 9:44am Height (Inches) 4.00 inches 12/20/2015 9:44am Weight (Kilograms) 110.300 kg 12/21/2015 8:00am Body Mass Index (BMI) 41.6 12/19/2015 8:00pm Results Laboratory Results Test Name Result Units Flags Reference Collection Date/Time Result Date/ Time Comments Carcinoembryonic Antigen 2.23 UG/L 0-3.0 10/24/2015 2:10pm 10/24/2015 3 :47pm CA 27.29 51.45 U/ML H 0-37.7 10/24/2015 2:10pm 10/24/2015 3:53pm Hemoglobin 9.8 GM/DL L 12-16 12/20/2015 10:05am 12/20/2015 10:19am Prothromb Time International Ratio 1.11 H 0.81-1.09 12/19/2015 7:34a12/19/2015 7:49am THERAPUTIC RANGE=2.00-3.00 FOR ANTI-THROMBOSIS THERAPUTIC RANGE=2.50-3.50 FOR IMPLANTED VALVE Icterus Index < 2 0-7 12/19/2015 7:34a12/19/2015 7:56am Chemistry Specimen Hemolysis < 15 0-25 12/19/2015 7:12/19/2015 7 :56am 0-25: Specimen Exhibited No Hemolysis. Turbidity < 20 0-20 12/19/2015 7:34a12/19/2015 7:56am Sodium Level 142 MEQ/L 134-144 12/19/2015 7:12/19/2015 7:56am Potassium Level 4.3 MEQ/L 3.6-5 12/19/2015 7:34a12/19/2015 7:56am Chloride Level 102 MEQ/L 98-107 12/19/2015 7:12/19/2015 7:56am Carbon Dioxide Level 29 MEQ/L 22-30 12/19/2015 7:34a12/19/2015 7: 56am Anion Gap 11 MEQ/L 5-12/19/2015 7:34a12/19/2015 7:56am Blood Urea Nitrogen 37.0 MG/DL H 7-12/19/2015 7:34a12/19/2015 7: 56am Creatinine 1.2 MG/DL 0.7-1.2 12/19/2015 7:34a12/19/2015 7:56am BUN/Creatinine Ratio 31 RATIO H 6-12/19/2015 7:12/19/2015 7: 56am Glomerular Filtration Rate Calc 44 12/19/2015 7:12/19/2015 7: 56am Glucose Level 107 MG/DL 65-110 12/19/2015 7:12/19/2015 7:56am Calculated Osmolality 282 MOSM/KG H 261-280 12/19/2015 7:2015 7:56am Calcium Level 9.5 MG/DL 8.4-10.2 12/19/2015 7:12/19/2015 7:56am Total Bilirubin 0.30 MG/DL 0.20-1.30 12/19/2015 7:12/19/2015 7: 56am Alkaline Phosphatase 82 U/L 38-126 12/19/2015 7:12/19/2015 7:56am Total Protein 7.4 G/DL 6.3-8.2 12/19/2015 7:12/19/2015 7:56am Albumin 4.1 G/DL 3.5-5.0 12/19/2015 7:12/19/2015 7:56am Globulin 3.3 G/DL 2.4-3.6 12/19/2015 7: 12/19/2015 7:56am Albumin/Globulin Ratio 1.2 RATIO 1.1-2.2 12/19/2015 7:12/19/2015 7 :56am Aspartate Amino Transf (AST/SGOT) 34 U/L 14-36 12/19/2015 7: 2015 7:56am Alanine Aminotransferase (ALT/SGPT) 29 U/L 9-52 12/19/2015 7:12/18 7:56am White Blood Count 8.5 T/MM3 4.5-11.0 11/16/2015 11:11/16/2015 11: 43am Red Blood Count 4.23 M/MM3 4.00-5.20 11/16/2015 11:11/16/2015 11: 43am Hematocrit 41.9 % 36-46 11/16/2015 11:11/16/2015 11:43am Mean Corpuscular Volume 99.1 UM3 80-100 11/16/2015 11:11/16/2015 11:43am Mean Corpuscular Hemoglobin 30.7 UUG 26-34 11/16/2015 11:2015 11:43am Mean Corpuscular Hemoglobin Concent 31.0 GM/DL 31-37 11/16/2015 11:11/16/2015 11:43am RDW Standard Deviation 53.5 FL H 36.9-50.2 11/16/2015 11:2015 11:43am Platelet Count 224 T/MM3 130-400 11/16/2015 11:11/16/2015 11:43am Mean Platelet Volume 9.6 UM3 9.4-12.4 11/16/2015 11:11/16/2015 11: 43am Neutrophils (%) (Auto) 68.2 % H 33-66 11/16/2015 11:11/16/2015 11: 43am Lymphocytes (%) (Auto) 23.1 % 23-45 11/16/2015 11:11/16/2015 11: 43am Monocytes (%) (Auto) 7.1 % 0-9.0 11/16/2015 11:11/16/2015 11:43am Eosinophils (%) (Auto) 0.7 % 0-4 11/16/2015 11:11/16/2015 11:43am Basophils (%) (Auto) 0.4 % 0-2 11/16/2015 11:11/16/2015 11:43am Immature Granulocyte % (Auto) 0.5 % 0.0-0.5 11/16/2015 11:2015 11:43am Absolute Neutrophils (auto) 5.8 T/MM3 1.8-7.7 11/16/2015 11:2015 11:43am Absolute Lymphocytes (auto) 2.0 T/MM3 1-4.8 11/16/2015 11:2015 11:43am Absolute Monocytes (auto) 0.6 T/MM3 0-0.8 11/16/2015 11:2015 11:43am Absolute Eosinophils (auto) 0.1 T/MM3 0-0.5 11/16/2015 11:2015 11:43am Absolute Basophils (auto) 0.0 T/MM3 0-0.2 11/16/2015 11:26am 2015 11:43am Absolute Immature Granulocyte (auto 0.04 T/MM3 H 0.00-0.03 11/16/2015 11: 26am 11/16/2015 11:43am Name: KIM ZUNIGA Unit #: [id number] : 1940 Sex: F Admit Date: Loc / Svc: SRG Discharge Date: DIAGNOSTIC IMAGING REPORT Report #: [id number] [facility] [place] Indication: The purpose of this study is to localize the sentinel lymph node(s) for purposes of surgical planning. Procedure:NM LYMPHOSCINTIGRAPHY LYMPHOSCINTIGRAPHY: Technique: After discussing the details of the procedure, including the risks, the patient wished to proceed. Informed consent was obtained. A preprocedural pause was performed to confirm the correct patient and procedure. Approximately 0. 25 mCi of Tc-99m sulfur colloid was injected intradermally in four periareolar locations in the left breast. This process was then repeated on the right breast. A total of approximately 1 mCi of Tc-99m sulfur colloid was injected in each breast. Anterior planar images were subsequently obtained. Findings: The 4 intradermal injection sites are visualized as intense focal uptake in the left and right breast regions. Impression: There are two areas of intense focal uptake located in the substernal region, with one to the left of midline and the other to the right. These findings are consistent with two internal mammary sentinel nodes. Edouard Parekh RPA/RA performed this under my personal supervision. . Procedures Procedure Status Date Provider(s) ULTRASOUND BREAST LIMITED Completed 09/23/15 BX BREAST 1ST LESION US IMAG Completed 10/01/15 BX BREAST ADD LESION US IMAG Completed 10/01/15 TISSUE EXAM BY PATHOLOGIST Completed 10/01/15 TISSUE EXAM BY PATHOLOGIST Completed 10/01/15 IMMUNOHISTO ANTB 1ST STAIN Completed 10/01/15 IMMUNOHISTO ANTB 1ST STAIN Completed 10/01/15 TUMOR IMMUNOHISTOCHEM/COMPUT Completed 10/01/15 132722"DIAGNOSTIC MAMMOGRAPHY, PRODUCING DIRECT DIGITAL IMAG Completed 544144"DIAGNOSTIC MAMMOGRAPHY, PRODUCING DIRECT DIGITAL IMAG Completed PET IMAGE W/CT SKULL-THIGH Completed 10/23/15 057145"FLUORODEOXYGLUCOSE F-18 FDG, DIAGNOSTIC, PER STUDY DO Completed CARCINOEMBRYONIC ANTIGEN Completed 10/24/15 IMMUNOASSAY TUMOR CA 15-3 Completed 10/24/15 ROUTINE VENIPUNCTURE Completed 11/16/15 X-RAY EXAM RIBS/CHEST4/> VWS Completed 11/16/15 METABOLIC PANEL TOTAL CA Completed 11/16/15 COMPLETE CBC W/AUTO DIFF WBC Completed 11/16/15 PROTHROMBIN TIME Completed 11/16/15 ELECTROCARDIOGRAM TRACING Completed 11/16/15 EMERGENCY DEPT VISIT Completed 11/16/15 Mastectomy with sentinel lymph node biopsy Completed 12/19/15 MONY FELIZ MD, FACS, CWS Encounters Encounter Location Arrival/Admit Date Discharge/Depart Date Attending Provider Discharged Inpatient [facility] 12/20/15 5:20pm 12/21/15 4:35pm MONY FELIZ FACS CWS MD Departed Emergency Room [facility] 11/16/15 10:50am 11/16/15 1: 05pm KASH MENDOZA MD Registered [facility] 10/24/15 2:21pm HARDIK FAY MD Registered [facility] 10/23/15 6:53am HARDIK FAY MD Registered [facility] 10/01/15 12:54pm VIKY CANAS DO Registered [facility] 09/23/15 10:51am VIKY CANAS DO
--- OUTSIDE RECORDS SUMMARY | 2016-10-30 07:37 | XMS REPORT | Referral Summary ---
Author Author [facility] Organization [facility] Address Unknown Phone Unavailable Care Team Providers Care Manager Database Name Role Phone Alfredo Montes Primary Care Physician [phone] Encounter VC Date(s): 01/10/16 - 01/10/16 [facility] [address] [place] [address] Dr [place] [address]- Discharge Diagnosis: S/p bilateral mastectomy Discharge Disposition: 01-Home or Self Care Attending Physician: Eddie Chris MD Admitting Physician: Eddie Chris MD Referring Physician: Alfredo Montes DO Vital Signs Most recent to 1 oldest [Reference Range]: Temperature Tympanic 37.5 degC [36.6-38.1 degC] (01/10/16 2:04 PM) Problem List Condition Effective Dates Status [...] BEDTIME, # 90 tabs, 1 Refill(s), Pharmacy: [facility], TAKE 1 TABLET AT BEDTIME Start Date: 11/07/15 Status: Ordered amitriptyline 50 mg oral tablet 50 mg 1 tabs, Oral, Bedtime (once a day), # 90 tabs, 2 Refill(s), Pharmacy: [facility]. Mail Delivery, 1 tabs Oral Bedtime (once a day) Start Date: 11/07/15 Status: Ordered bumetanide 2 mg oral tablet 0.5 tabs, Oral, Daily, # 45 tabs, 2 Refill(s), Pharmacy: [facility], 0.5 tabs Oral Daily Start Date: 08/23/14 Status: Ordered latanoprost 0.005% ophthalmic solution 1 drops, Eye-Both, Bedtime (once a day), Please send 90 day supply quantity sufficient, # 3 Each, 2 Refill(s), Pharmacy: [facility] Start Date: 11/07/15 Status: Ordered levothyroxine 75 mcg (0.075 mg) oral tablet 75 mcg 1 tabs, Oral, Daily, # 90 tabs, 2 Refill(s), Pharmacy: [facility] Mail Delivery, 1 tabs Oral Daily Start Date: 11/07/15 Status: Ordered metoprolol tartrate 25 mg oral tablet 25 mg 1 tabs, Oral, BID, # 60 tabs, 2 Refill(s), Pharmacy: [facility] Start Date: 11/07/15 Status: Ordered minocycline 100 mg oral capsule 100 mg 1 caps, Oral, BID, # 20 caps, 0 Refill(s) Start Date: 12/06/15 Stop Date: 12/16/15 Status: Ordered Nitrostat 0.4 mg sublingual tablet 1 tabs, SubLingual, q5min, as needed for chest pain, not to exceed 3 doses/15 min--if pain persists, seek medical attention, # 8,640 tabs, 1 Refill(s), Pharmacy: [facility], 1 tabs SubLingual q5min,PRN:as needed for chest pain, Instr:not to exceed... Start Date: 08/23/14 Status: Ordered omeprazole 40 mg oral delayed release capsule See Instructions, TAKE 1 CAPSULE EVERY DAY, # 90 caps, 1 Refill(s), Pharmacy: [email or web address], TAKE 1 CAPSULE EVERY DAY Start Date: 11/07/15 Status: Ordered spironolactone 25 mg oral tablet 25 mg 1 tabs, Oral, BID, # 180 tabs, 1 Refill(s), Pharmacy: [facility], 1 tabs Oral BID Start Date: 11/07/15 Status: Ordered triamcinolone 0.1% topical cream See Instructions, APPLY TO AFFECTED AREA(S) TWICE DAILY, # 90 g, 2 Refill(s), eRx: [email or web address], APPLY TO AFFECTED AREA(S) TWICE DAILY Start Date: 07/19/15 Status: Ordered triamcinolone 0.1% topical cream See Instructions, APPLY TO AFFECTED AREA(S) TWICE DAILY, # 90 g, 2 Refill(s), Pharmacy: [email or web address] Start Date: 11/07/15 Stop Date: 11/06/16 Status: Ordered warfarin 2 mg oral tablet See Instructions, Take as directed per INR Right now patient on 3 tabs daily 90 day supply, # 270 tabs, 2 Refill(s), Pharmacy: [email or web address] , Take as directed [...] Invasive ductal carcinoma, 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 Bryan QUACH - see Conversion Document 4Dr. Lm in [place] - see Conversion Document. 5Needs additional Imaging. See scanned document Social History Social History Type Response Smoking Status Never smoker Assessment and Plan Extracted from: Title: Office Visit Note Author: Eddie Chris MD Date: 01/10/16 Assessment/Plan 1.S/p bilateral mastectomy Ordered: Postoperative Est 04142 Plan: Aspiration of seromaalong right anterior chest wall. Skin prep without call. 18-gauge needle introduced into underlying seroma. Approximately 100 mL ofold blood was aspirated without difficulty. Small amount of necrosis along midportion ofmastectomy incision was excised sharply with 15 blade. All galileo DC'd. Patient instructed to place antibiotic ointment overlying herincisioninvolving her right anterior chest wall followed by a dressing on a daily basis. Patient toreturn office at one week interval or sooner if problems shouldarise. Addendum I reviewed this chart, the patient's medical history, and the by Jyoti, Resident's/HOSPICE NURSE PRACTITIONER's/PA/RN's/PharmD's documented findings, and concur with the assessment and Alfredo DO plan as above. on January 10, 2016 17:35:48 CDT
--- OUTSIDE RECORDS SUMMARY | 2016-10-30 07:37 | XMS REPORT | Referral Summary ---
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 Name Role Phone Claribel Arevalo Primary Care Physician [phone] Encounter VC Date(s): 10/16/14 - 10/16/14 [facility] Family [address] [place] [address]- Discharge Diagnosis: Benign hypertension Discharge Diagnosis: Cardiac pacemaker Discharge Diagnosis: Depression Disorder, Not Elsewhere Classified Discharge Disposition: Home or Self Care Attending Physician: Sukumar Arevalo MD Admitting Physician: Sukumar Arevalo MD Vital Signs Most recent to 1 oldest [Reference Range]: Temperature Tympanic 36.7 degC [36.6-38.1 degC] (10/16/14 1:47 PM) Peripheral Pulse 100 bpm Rate [60-100 bpm] (10/16/14 1:47 PM) Blood Pressure 126/80 mmHg [90-140/60-90 mmHg] (10/16/14 1:47 PM) Most recent to 1 oldest [Reference Range]: SpO2 93 % (10/16/14 1:47 PM) Problem List Condition Effective Dates Status [...] Active Medications allopurinol 300 mg oral tablet 1 tabs, Oral, Bedtime (once a day), # 90 tabs, 2 Refill(s), Pharmacy: [facility], 1 tabs Oral Bedtime (once a day) Start Date: 08/23/14 Status: Ordered amitriptyline 50 mg oral tablet 1 tabs, Oral, Bedtime (once a day), # 90 tabs, 2 Refill(s), Pharmacy: [facility], 1 tabs Oral Bedtime (once a day) Start Date: 08/23/14 Status: Ordered bumetanide 2 mg oral tablet 0.5 tabs, Oral, Daily, # 45 tabs, 2 Refill(s), Pharmacy: [facility], 0.5 tabs Oral Daily Start Date: 08/23/14 Status: Ordered latanoprost 0.005% ophthalmic solution 1 drops, Eye-Both, Bedtime (once a day), Please send 90 day supply quantity sufficient, # 3 Each, 2 Refill(s), Pharmacy: [facility] Special Instructions: Please send 90 day supply quantity sufficient Start Date: 08/23/14 Status: Ordered levothyroxine 75 mcg (0.075 mg) oral tablet 1 tabs, Oral, Daily, # 90 tabs, 2 Refill(s), Pharmacy: [facility], 1 tabs Oral Daily Start Date: 08/23/14 Status: Ordered losartan-hydrochlorothiazide 100 mg-12.5 mg oral tablet 1 tabs, Oral, Daily, # 90 tabs, 2 Refill(s), Pharmacy: [facility] Start Date: 08/23/14 Status: Ordered minocycline 100 mg oral tablet 1 tabs, Oral, BID, 0 Refill(s) Start Date: 10/16/14 Stop Date: 10/23/14 Status: Ordered Nitrostat 0.4 mg sublingual tablet 1 tabs, SubLingual, q5min, as needed for chest pain, not to exceed 3 doses/15 min--if pain persists, seek medical attention, # 8,640 tabs, 1 Refill(s), Pharmacy: [facility], 1 tabs SubLingual q5min,PRN:as needed for chest pain, Instr:not to exceed... Special Instructions: not to exceed 3 doses/15 min--if pain persists, seek medical attention Start Date: 08/23/14 Status: Ordered Placida 10 mg-325 mg oral tablet 1 tabs, Oral, q4hr, as needed for pain, fax to [employer], # 60 tabs, 0 Refill(s) Special Instructions: fax to [employer] [facility] [facility] Start Date: 02/09/14 Status: Ordered omeprazole 40 mg oral delayed release capsule 1 caps, Oral, Daily, # 90 caps, 2 Refill(s), Pharmacy: [facility], 1 caps Oral Daily Start Date: 08/23/14 Status: Ordered spironolactone 25 mg oral tablet 1 tabs, Oral, BID, # 180 tabs, 2 Refill(s), Pharmacy: [facility], 1 tabs Oral BID Start Date: 08/23/14 Status: Ordered triamcinolone 0.1% topical cream bhargavi, Topical, TID, 0 Refill(s) Start Date: 10/16/14 Status: Ordered warfarin 2 mg oral tablet See Instructions, Take as directed per INR Right now patient on 3 tabs daily 90 day supply, # 270 tabs, 2 Refill(s), Pharmacy: [facility], Take as directed per INR; Right now patient on 3 tabs daily 90 day supply Special Instructions: Take as directed per INR Right now patient on 3 tabs daily 90 day supply Start Date: 08/23/14 Status: Ordered Results No data available for this section Immunizations Vaccine Date Refusal Reason influenza virus vaccine, live 05/23/14 influenza virus vaccine, live 05/16/13 Procedures Procedure Date Related Diagnosis Body Site DM FOOT EXAM 01/20/12 Pacemaker1 01/09/10 Rt inguinal hernia2 2007 Cataract Left 2007 Cataract Right 2007 Adenomatous polyp 2006 Colonoscopy 2006 Knee replacement L 2005 Knee replacement R 2005 BREAST BIOPSY LEFT AND RIGHT 1996 Thyroid Surgery ANKUSH THYROID 1997 HERNIATED DISC L4-5 1995 Appendectomy 1974 gall bladder 1974 1PDr. Bryan QUACH - see Conversion Document 2Dr. Lm in [place] - see Conversion Document. Social History Social History Type Response Smoking Status Never smoker Assessment and Plan Extracted from: Title: Office Visit Note Author: Sukumar Arevalo MD Date: 10/16/14 Assessment/Plan Benign hypertension Cardiac pacemaker Depression Disorder, Not Elsewhere Classified Plan: It appears to be healing well. I would observe for now. If you're having any fever chills sweats nausea or vomiting but me know. Otherwise follow-up in 3-6 months. Continue all current medications.
--- OUTSIDE RECORDS SUMMARY | 2016-10-30 07:37 | XMS REPORT | Referral Summary ---
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 Name Role Phone Alfredo Montes Primary Care Physician [phone] Encounter [facility] Date(s): 03/27/16 - 03/27/16 [facility] [address] [place] [address] Dr Cespedes [place] [id number]- Discharge Diagnosis: Post-operative state Discharge Disposition: 01-Home or Self Care Attending Physician: Eddie Cabrera MD Admitting Physician: Eddie Cabrera MD Referring Physician: Alfredo Montes DO Vital Signs Most recent to 1 oldest [Reference Range]: Temperature Tympanic 35.8 degC [36.6-38.1 degC] *LOW* (03/27/16 9:01 AM) Peripheral Pulse 77 bpm Rate [60-100 bpm] (03/27/16 9:01 AM) Respiratory Rate 18 br/min [14-20 br/min] (03/27/16 9:01 AM) SpO2 92 % (03/27/16 9:01 AM) Problem List Condition Effective Dates Status [...] BEDTIME, # 90 tabs, 1 Refill(s), Pharmacy: [facility], TAKE 1 TABLET AT BEDTIME Start Date: 11/07/15 Status: Ordered amitriptyline 50 mg oral tablet 50 mg 1 tabs, Oral, Bedtime (once a day), # 90 tabs, 2 Refill(s), Pharmacy: [facility], 1 tabs Oral Bedtime (once a day) Start Date: 11/07/15 Status: Ordered bumetanide 2 mg oral tablet 0.5 tabs, Oral, Daily, # 45 tabs, 2 Refill(s), Pharmacy: [facility], 0.5 tabs Oral Daily Start Date: 08/23/14 Status: Ordered Entresto 1 tabs, Oral, BID, 0 Refill(s) Start Date: 03/27/16 Status: Ordered latanoprost 0.005% ophthalmic solution 1 drops, Eye-Both, Bedtime (once a day), Please send 90 day supply quantity sufficient, # 3 Each, 2 Refill(s), Pharmacy: [facility] Start Date: 11/07/15 Status: Ordered letrozole 2.5 mg oral tablet 2.5 mg 1 tabs, Oral, Daily, # 30 tabs, 0 Refill(s) Start Date: 03/27/16 Stop Date: 04/26/16 Status: Ordered levothyroxine 75 mcg (0.075 mg) oral tablet 75 mcg 1 tabs, Oral, Daily, # 90 tabs, 2 Refill(s), Pharmacy: [facility], 1 tabs Oral Daily Start Date: 11/07/15 Status: Ordered Metoprolol Tartrate 25 mg oral tablet See Instructions, TAKE 1 TABLET TWICE DAILY, # 180 tabs, 2 Refill(s), eRx: [facility], TAKE 1 TABLET TWICE DAILY Start Date: 03/05/16 Status: Ordered Nitrostat 0.4 mg sublingual tablet 1 tabs, SubLingual, q5min, as needed for chest pain, not to exceed 3 doses/15 min--if pain persists, seek medical attention, # 8,640 tabs, 1 Refill(s), Pharmacy: [facility], 1 tabs SubLingual q5min,PRN:as needed for chest pain, Instr:not to exceed... Start Date: 08/23/14 Status: Ordered omeprazole 40 mg oral delayed release capsule See Instructions, TAKE 1 CAPSULE EVERY DAY, # 90 caps, 1 Refill(s), Pharmacy: [facility], TAKE 1 CAPSULE EVERY DAY Start Date: 11/07/15 Status: Ordered spironolactone 25 mg oral tablet 25 mg 1 tabs, Oral, BID, # 180 tabs, 1 Refill(s), Pharmacy: [facility], 1 tabs Oral BID Start Date: 11/07/15 Status: Ordered triamcinolone 0.1% topical cream See Instructions, APPLY TO AFFECTED AREA(S) TWICE DAILY, # 90 g, 2 Refill(s), eRx: [facility], APPLY TO AFFECTED AREA(S) TWICE DAILY Start Date: 07/19/15 Status: Ordered triamcinolone 0.1% topical cream See Instructions, APPLY TO AFFECTED AREA(S) TWICE DAILY, # 90 g, 2 Refill(s), Pharmacy: [facility] Start Date: 11/07/15 Stop Date: 11/06/16 Status: Ordered Xarelto 20 mg oral tablet [...] - see Conversion Document 5Dr. Lm in [place] - see Conversion Document. 6Needs additional Imaging. See scanned document Social History Social History Type Response Smoking Status Never smoker Assessment and Plan Extracted from: Title: Office Visit Note Author: Eddie Cabrera MD Date: 03/27/16 Assessment/Plan 1.Post-operative state Ordered: Postoperative Est [id number] Orders: letrozole, 2.5 mg 1 tabs, Oral, Daily, # 30 tabs, 0 Refill(s) rivaroxaban, 20 mg 1 tabs, Oral, qPM, # 30 tabs, 0 Refill(s) Plan: Appointment with Dr. Gregory to discuss possible breastreconstruction/ revisionof mastectomy incisions.. Excisional debridement ofsuperficial wound involving right mastectomy incision site. 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 She was found to have 1 small micrometastaticfocus of cancer within 1 of her central lymph nodes. On the left she was found at 1.5 cminvasive ductal carcinomain conjunction with a small foci of ductal carcinoma in situand lobular carcinoma in situ. [place] node was negative. I informed the patientthat statistically speaking she should have a very good prognosis. I informed the patientthat overall I'm pleased with her surgical outcome. She did not have a majorpostoperative complication. She has 1 very small superficial wound which I do believe will heal on its own behalf over the next couple weeks. The smallfoci ofnecroticepidermis was debrided sharply with a surgical curette. Patient was instructed to simply place antibiotic ointment overlying this area of concern followed by Band-Aid on a daily basis. I informed the patient that I did extend her mastectomy incisionsfurther posteriorlythan normal and did remove perhaps7-8 cm of skinand underlying subcutaneous tissues. Despite this she still has some"extra"subcutaneous tissuesresulting in what she describes as "bat wings". I informed the patient that she could be return to the operating room andthis could be revised if she desired. I informed the patient that I would like to set her up to seea plasticsurgerytoat least discuss the potential ofbreast reconstructionor revision of her mastectomy incisions. Appointment was set up for patient. Patient to follow me on when necessary basis at this time.
--- OUTSIDE RECORDS SUMMARY | 2016-10-30 07:37 | XMS REPORT | Referral Summary ---
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 Role Phone Alfredo Montes Primary Care Physician [phone] Encounter VC Date(s): 11/06/15 - 11/06/15 [facility] [address] [place] [address] Dr Cespedes [place] [id number]- Discharge Diagnosis: History of pulmonary embolus (PE) Discharge Diagnosis: Presence of combination internal cardiac defibrillator (ICD ) and pacemaker Discharge Diagnosis: Breast cancer Discharge Disposition: 01-Home or Self Care Attending Physician: Eddie Chris MD Admitting Physician: Eddie Chris MD Referring Physician: Alfredo Montes DO Vital Signs Most recent to 1 oldest [Reference Range]: Temperature Tympanic 36.6 degC [36.6-38.1 degC] (11/06/15 9:14 AM) Blood Pressure 138/68 mmHg [90-140/60-90 mmHg] (11/06/15 9:14 AM) Problem List Condition Effective Dates Status [...] BEDTIME, # 90 tabs, 1 Refill(s), eRx: [facility], TAKE 1 TABLET AT BEDTIME Start Date: 05/06/15 Status: Ordered amitriptyline 50 mg oral tablet 50 mg 1 tabs, Oral, Bedtime (once a day), # 90 tabs, 2 Refill(s), Pharmacy: [facility], 1 tabs Oral Bedtime (once a day) Start Date: 02/25/15 Status: Ordered bumetanide 2 mg oral tablet 0.5 tabs, Oral, Daily, # 45 tabs, 2 Refill(s), Pharmacy: [facility], 0.5 tabs Oral Daily Start Date: 08/23/14 Status: Ordered latanoprost 0.005% ophthalmic solution 1 drops, Eye-Both, Bedtime (once a day), Please send 90 day supply quantity sufficient, # 3 Each, 2 Refill(s), Pharmacy: [facility] Start Date: 02/25/15 Status: Ordered levothyroxine 75 mcg (0.075 mg) oral tablet 75 mcg 1 tabs, Oral, Daily, # 90 tabs, 2 Refill(s), Pharmacy: [facility], 1 tabs Oral Daily [...] DAY, # 90 caps, 1 Refill(s), eRx: [facility], TAKE 1 CAPSULE EVERY DAY Start Date: 05/06/15 Status: Ordered spironolactone 25 mg oral tablet 25 mg 1 tabs, Oral, BID, # 180 tabs, 2 Refill(s), Pharmacy: [facility], 1 tabs Oral BID Start Date: 02/25/15 Status: Ordered triamcinolone 0.1% topical cream See Instructions, APPLY TO AFFECTED AREA(S) TWICE DAILY, # 90 g, 2 Refill(s), eRx: [facility], APPLY TO AFFECTED AREA(S) TWICE DAILY Start Date: 07/19/15 Status: Ordered warfarin 2 mg oral tablet See Instructions, Take as directed per INR Right now patient on 3 tabs daily 90 day supply, # 270 tabs, 2 Refill(s), Pharmacy: [facility], Take as directed per [...] combination internal cardiac defibrillator and pacemaker Mammogram[address] [place] [address] 2PDr. Bryan QUACH - see Conversion Document 3Dr. Lm in [place] - see Conversion Document. 4Needs additional Imaging. See scanned document Social History Social History Type Response Smoking Status Never smoker Assessment and Plan Extracted from: Title: Ambulatory Patient Education Author: Eddie Chris MD Date: 11/05 Obstetrics and Gynecology Breast Cancer Breast cancer is an abnormal growth of tissue (tumor) in the breast that is cancerous (malignant). Unlike noncancerous (benign) tumors, malignant tumors can spread to other parts of your body. The most common type of female breast cancer begins in the milk ducts (ductal carcinoma). Breast cancer is one of the most common types of cancer in women. CAUSES The exact cause of female breast cancer is unknown. RISK FACTORS Age older than 55 years. Family history of breast cancer. Having the BRCA1 and BRCA2 genes. Personal history of radiation exposure. Obesity. Menstrual periods that begin before age 12 years. Menopause that begins after age 55 years. for the first time at the age of 35 years or older. Using hormone therapy. Drinking more than one alcoholic drink per day. SIGNS AND SYMPTOMS A painless lump in your breast. Changes in the size or shape of your breast. Breast skin changes, such as puckering or dimpling. Nipple abnormalities, such as scaling, crustiness, redness, or pulling in (retraction). Nipple discharge that is bloody or clear. DIAGNOSIS Your health care provider will ask about your medical history. He or she may also perform a number of procedures, such as: A physical exam. This will involve feeling the tissue around the breast and under the arms. Taking a sample of nipple discharge. The sample will be examined under a microscope. Breast X-rays (mammogram), breast ultrasound exams, or an MRI. Taking a tissue sample (biopsy) from the breast. The sample will be examined under a microscope to look for cancer cells. Your cancer will be staged to determine its severity and extent. Staging is a careful attempt to find out the size of the tumor, whether the cancer has spread , and if so, to what parts of the body. You may need to have more tests to determine the stage of your cancer: Stage 0The tumor has not spread to other breast tissue. Stage IThe cancer is only found in the breast. The tumor may be up to in (2 cm) wide. Stage IIThe cancer has spread to nearby lymph nodes. The tumor may be up to 2 in (5 cm) wide. Stage IIIThe cancer has spread to more distant lymph nodes. The tumor may be larger than 2 in (5 cm) wide. Stage IVThe cancer has spread to other parts of the body, such as the bones, brain, liver, or lungs. TREATMENT Depending on the type and stage, female breast cancer may be treated with one or more of the following therapies: Surgery to remove just the tumor (lumpectomy) or the entire breast ( mastectomy). Lymph nodes may also be removed. Radiation therapy, which uses high-energy rays to kill cancer cells. Chemotherapy, which is the use of drugs to kill cancer cells. Hormone therapy, which involves taking medicine to adjust the hormone levels in your body. You may take medicine to decrease your estrogen levels. This can help stop cancer cells from growing. HOME CARE INSTRUCTIONS Take medicines only as directed by your health care provider. Maintain a healthy diet. Consider joining a support group. This may help you learn to cope with the stress of having breast cancer. Keep all follow-up appointments as directed by your health care provider. SEEK MEDICAL CARE IF: You have a sudden increase in pain. You notice a new lump in either breast or under your arm. You develop swelling in either arm or hand. You lose weight without trying. You have a fever. You notice new fatigue or weakness. SEEK IMMEDIATE MEDICAL CARE IF: You have chest pain or trouble breathing. You faint. This information is not intended to replace advice given to you by your health care provider. Make sure you discuss any questions you have with your health care provider. Document Released: 10/27/2006 Document Revised: 12/03/2014 Document Reviewed: [employer] Patient Information 2015 [email or web address]. No follow up information was provided.
--- OUTSIDE RECORDS SUMMARY | 2016-10-30 07:37 | XMS REPORT | Referral Summary ---
Author Organization Unknown Address Unknown Phone Unavailable Care Team Providers Care Launch Operator Name Role Phone Claribel Arevalo Primary Care Physician [phone] Encounter [facility] [id number] Date(s): 09/12/14 - 09/12/14 [facility] , Dermatology [address], [place] [address] Discharge Diagnosis: Lipodermatosclerosis Discharge Disposition: Home or Self Care Attending Physician: Leonardo Hwang MD Admitting Physician: Leonardo Hwang MD Vital Signs No data available for this section Problem List Condition Effective Dates Status Health Status Informant Angina/Chest Active Pain(Confirmed) Back pain(Confirmed) Active Backache Active (finding)(Confirmed) Benign essential Active hypertension (disorder)(Confirmed ) Benign Active hypertension(Confirm ed) Blood clots Active lungs/legs(Confirmed ) CARDIOMEGALY(Confirm Active ed) COPD ([facility] [employer] Active [...] type 2, Active unspec(Confirmed) UNSPECIFIED Active CATARACT(Confirmed) Allergies, Adverse Reactions, Alerts Substance Reaction Severity [...] Oral Daily Start Date: 08/23/14 Status: Ordered isosorbide mononitrate 30 mg oral tablet, extended release 1 tabs, Oral, BID, # 180 tabs, 2 Refill(s), Pharmacy: [facility], 1 tabs Oral BID,x90 days Start Date: 08/23/14 Stop Date: 05/20/15 Status: Ordered latanoprost 0.005% ophthalmic solution 1 drops, Eye-Both, Bedtime (once a day), Please send 90 day supply quantity sufficient, # 3 Each, 2 Refill(s), Pharmacy: [facility] Special Instructions: Please send 90 day [...] [facility] Start Date: 08/23/14 Status: Ordered Nitrostat 0.4 mg sublingual tablet [...] medical attention Start Date: 08/23/14 Status: Ordered [place] 10 mg-325 mg oral tablet 1 tabs, Oral, q4hr, as needed for pain, [facility], # [facility], 0 Refill(s) Special Instructions: fax to [facility] Start Date: 02/09/14 Status: Ordered omeprazole 40 mg oral delayed release capsule 1 caps, Oral, Daily, # 90 caps, 2 Refill(s), Pharmacy: [facility], 1 caps Oral Daily Start Date: 08/23/14 Status: Ordered spironolactone 25 mg oral tablet 1 tabs, Oral, BID, # 180 tabs, 2 Refill(s), Pharmacy: [facility], 1 tabs Oral BID Start Date: 08/23/14 Status: Ordered warfarin 2 mg oral tablet See Instructions, Take as directed per INR Right now patient on 3 tabs daily 90 day supply, # 270 tabs, 2 Refill(s), Pharmacy: [facility], Take as directed per INR; Right [...] Procedures Procedure Date Related Diagnosis Body Site Injection, intralesional; up to and including 09/12/14 7 lesions DM FOOT EXAM 01/20/12 Pacemaker1 01/09/10 Rt inguinal hernia2 2007 Cataract Left 2007 Cataract Right 2007 Adenomatous polyp 2006 Colonoscopy 2006 Knee replacement L 2005 Knee replacement R 2005 BREAST BIOPSY LEFT AND RIGHT 1996 Thyroid Surgery ANKUSH THYROID 1997 HERNIATED DISC L4-5 1995 Appendectomy 1974 gall bladder 1974 1PDr. Bryan QUACH - see Conversion Document 2Dr. Lm soto [place] - see Conversion Document. 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 The most important part of her therapy will be compression stockings and she says she has them but she has not been wearing them. I would also encourage her to work closely with her primary care and other specialists to control her blood pressure and improve the circulation in that leg. Today we decided to try intralesional Kenalog injection into that area to see if we can soften the induration. Clobetasol under occlusion could be another option in the future. Today I cleaned the site and injected a total of 3 cc of 5mg/cc kenalog into the indurated part of the plaque Discussed options/risks/benefits of intralesional kenalog injection. Specifically discussed risks of pain, bleeding, abscess, temporary or permanent skin texture or color changes (including changes at and remote to injection sites), scarring, lack of effect, need for further treatments, systemic effects of steroids, and other unexpected risks/outcomes of these types of skin procedures. Answered all questions and patient elected to proceed. Cleaned all sites before injection. Injected 5mg/cc kenalog. Bandages placed where needed. Ordered: Injection intralesional up to + includ 7 lesions [id number] Office Visit Level 2 New [address]
--- OUTSIDE RECORDS SUMMARY | 2016-10-30 07:37 | XMS REPORT | Referral Summary ---
Author Author [facility] Organization [facility] Address Unknown Phone Unavailable Care Team Providers Care Inspector And Tester Name Role Phone Alfredo Montes Primary Care Physician [phone] Encounter [facility] Date(s): 12/06/15 - 12/06/15 [facility], [address] [place] [address]- Discharge Diagnosis: Encounter for wound care Discharge Diagnosis: Anticoagulated on Coumadin Discharge Disposition: 01-Home or Self Care Attending Physician: Alfredo Montes DO Vital Signs Most recent to 1 oldest [Reference Range]: Temperature Tympanic 36.8 degC [36.6-38.1 degC] (12/06/15 2:48 PM) Peripheral Pulse 105 bpm Rate [60-100 bpm] *HI* (12/06/15 2:48 PM) Blood Pressure 130/55 mmHg [90-140/60-90 mmHg] (12/06/15 2:48 PM) SpO2 93 % (12/06/15 2:48 PM) Problem List Condition Effective Dates Status [...] BEDTIME, # 90 tabs, 1 Refill(s), Pharmacy: [facility], TAKE 1 TABLET AT BEDTIME Start Date: 11/07/15 Status: Ordered amitriptyline 50 mg oral tablet 50 mg 1 tabs, Oral, Bedtime (once a day), # 90 tabs, 2 Refill(s), Pharmacy: [facility], 1 tabs Oral Bedtime (once a day) Start Date: 11/07/15 Status: Ordered bumetanide 2 mg oral tablet 0.5 tabs, Oral, Daily, # 45 tabs, 2 Refill(s), Pharmacy: [facility], 0.5 tabs Oral Daily Start Date: 08/23/14 Status: Ordered latanoprost 0.005% ophthalmic solution 1 drops, Eye-Both, Bedtime (once a day), Please send 90 day supply quantity sufficient, # 3 Each, 2 Refill(s), Pharmacy: [facility] Start Date: 11/07/15 Status: Ordered levothyroxine 75 mcg (0.075 mg) oral tablet 75 mcg 1 tabs, Oral, Daily, # 90 tabs, 2 Refill(s), Pharmacy: [facility], 1 tabs Oral Daily Start Date: 11/07/15 Status: Ordered metoprolol tartrate 25 mg oral tablet 25 mg 1 tabs, Oral, BID, # 60 tabs, 2 Refill(s), Pharmacy: [facility] Start Date: 11/07/15 [...] 8,640 tabs, 1 Refill(s), Pharmacy: [facility], 1 tabs SubLingual q5min,PRN:as needed for chest pain, Instr:not to exceed... Start Date: 08/23/14 Status: Ordered [place] 5 mg-325 mg oral tablet 1 tabs, Oral, q6hr, as needed for pain, # 15 tabs, 0 Refill(s) Start Date: 11/18/15 Status: Ordered omeprazole 40 mg oral delayed release capsule See Instructions, TAKE 1 CAPSULE EVERY DAY, # 90 caps, 1 Refill(s), Pharmacy: [facility], TAKE 1 CAPSULE EVERY DAY Start Date: 11/07/15 Status: Ordered spironolactone 25 mg oral tablet 25 mg 1 tabs, Oral, BID, # 180 tabs, 1 Refill(s), Pharmacy: [email or web address], 1 tabs Oral BID Start Date: 11/07/15 Status: Ordered triamcinolone 0.1% topical cream See Instructions, APPLY TO AFFECTED AREA(S) TWICE DAILY, # 90 g, 2 Refill(s), eRx: [facility], APPLY TO AFFECTED AREA(S) TWICE DAILY Start Date: 07/19/15 Status: Ordered triamcinolone 0.1% topical cream See Instructions, APPLY TO AFFECTED AREA(S) TWICE DAILY, # 90 g, 2 Refill(s), Pharmacy: [facility] Start Date: 11/07/15 Stop Date: 11/06/16 Status: Ordered warfarin 2 mg oral tablet See Instructions, Take as directed per INR Right now patient on 3 tabs daily 90 day supply, # 270 tabs, 2 Refill(s), Pharmacy: [facility] , Take as directed [...] combination internal cardiac defibrillator and pacemaker Mammogram4 1[facility] 2PDr. Bryan QUACH - see Conversion Document 3Dr. Lm in [place] - see Conversion Document. 4Needs additional Imaging. See scanned document Social History Social History Type Response Smoking Status Never smoker Assessment and Plan Extracted from: Title: Office Visit Note Author: Alfredo Montes DO Date: 12/06/15 Assessment/Plan Anticoagulated on Coumadin, Encounter for therapeutic drug level monitoring 1. Her INR today was 2.0. Continue on the current dose and recheck in one week. Ordered: Office Visit Level 3 Est 13759 Encounter for other specified aftercare, Encounter for wound care 1. Her surgical wound from repositioning of the different the later appears to be healing well. 2. Continue with antibiotic therapy as prescribed by male impersonator. 3. Follow-up if any new concerns. Ordered: Office Visit Level 3 Est 45850 Orders: PT
[2016-10-30 07:53] VITALS: Ht 160 cm; Wt 99.7 kg
[2016-10-30 08:00] VITALS: BP 130/60; PULSE 73; RESP 16; TEMP 97.7; O2SAT 91
[2016-10-30] MEDS ORDERED: CEFAZOLIN 1 GRAM INJECTION IV ONE (08:00)
[2016-10-30 08:16] LABS: BASOPHILS # (AUTO) 0.1 T/MM3 (0-0.2); BASOPHILS % (AUTO) 0.5 % (0-2); EOSINOPHILS # (AUTO) 0.2 T/MM3 (0-0.5); EOSINOPHILS % (AUTO) 1.8 % (0-4); HCT - HEMATOCRIT 36.7 % (36-46); HGB - HEMOGLOBIN 11.2 GM/DL (12-16); IMMATURE GRANULOCYTE # (AUTO) 0.02 T/MM3 (0.00-0.03); IMMATURE GRANULOCYTE % (AUTO) 0.2 % (0.0-0.5); LYMPHOCYTES # (AUTO) 2.3 T/MM3 (1-4.8); LYMPHOCYTES % (AUTO) 22.5 % (23-45); MEAN CORPUSCULAR HGB 30.4 UUG (26-34); MEAN CORPUSCULAR HGB CONC(MCHC 30.5 GM/DL (31-37); MEAN CORPUSCULAR VOLUME 99.5 UM3 (80-100); MEAN PLATELET VOLUME 9.6 UM3 (9.4-12.4); MONOCYTES # (AUTO) 0.9 T/MM3 (0-0.8); MONOCYTES % (AUTO) 8.8 % (0-9.0); NEUTROPHILS #(AUTO)-ABSOLUTE 6.7 T/MM3 (1.8-7.7); NEUTROPHILS % (AUTO) 66.2 % (33-66); RED BLOOD COUNT 3.69 M/MM3 (4.00-5.20)
[2016-10-30 08:25] LABS: ALBUMIN 4.4 G/DL (3.5-5.0); ALBUMIN/GLOBULIN RATIO 1.1 RATIO (1.1-2.2); ALKALINE PHOSPHATASE 58 U/L (38-126); ALT (SGPT) 23 U/L (9-52); ANION GAP 16 MEQ/L (5-15); AST (SGOT) 25 U/L (14-36); BUN/CREATININE RATIO 30 RATIO (6-26); CALCIUM 10.2 MG/DL (8.4-10.2); CHLORIDE 104 MEQ/L (98-107); CO2 - CARBON DIOXIDE 25 MEQ/L (22-30); CREATININE 1.9 MG/DL (0.7-1.2); GLOMERULAR FILTRATION RATE 26; GLUCOSE 121 MG/DL (65-110); POTASSIUM 4.9 MEQ/L (3.6-5); SODIUM 145 MEQ/L (134-144); TOTAL PROTEIN 8.3 G/DL (6.3-8.2)
--- NOTE | 2016-10-30 08:44 | ANESPREOP ---
Anesthesia Record Date and Time DATE: 10/30/16 TIME: 08:18 Pre-Op Diagnosis Left CTS Proposed Surgical Procedure LT CTR, INJECTION LT TRIGGER FINGER NPO since: [place] Allergies: Coded Allergies: codeine (Verified Allergy, Severe, COULDN'T BREATH,HEART RACING, 10/30/16) HAS HAD COUGH MEDICINE WITH CODEINE AND DID FINE Ht/Wt/BMI Height: 5 ' 3.00 " Weight: 99.700 kg BMI: 38.9 kg/m2 Vital Signs Date Time Temp Pulse Resp B/P Pulse Ox O2 Delivery O2 Flow Rate FiO2 10/30/16 08:00 97.7 73 16 130/60 91 Room Air Medications Inpatient Medications Current Medications Medications (Trade) Dose Ordered Sig/Frank Start Time Stop Time Status Last Admin Dose Admin Lactated Ringer's (Lactated Ringers) 1,000 ml @ 50 mls/hr Q20H 10/30/16 07:00 10/30/16 07:00 DC Acetaminophen (Tylenol Extra Strength) 500 Mg Tablet, 1-2 TAB PO Q6H PRN for PAIN, (Reported) Last Taken: on Unknown Date & Time Allopurinol (Allopurinol) 300 Mg Tablet , 300 MG PO HS, (Reported) Last Taken: on 10/29/162099 Amitriptyline Hcl (Amitriptyline Hcl) 50 Mg Tablet, 50 MG PO HS, (Reported) Last Taken: on 10/28/16 Bumetanide (Bumetanide) 2 Mg Tablet, 1 MG PO DAILY, (Reported) Last Taken: on 10/28/16 Calcium Citrate (Calcium Citrate) 200 Mg Tablet, 600 MG PO BID, (Reported) Last Taken: on 10/29/162099 Cholecalciferol (Vitamin D3) (Vitamin D-400) 400 Unit Tablet, 1 TAB PO BID, (Reported) Last Taken: on 10/29/162099 Digoxin (Digox) 125 Mcg Tablet, 1 TAB PO DAILY, (Reported) Last Taken: on 10/30/16 0530 Latanoprost (Latanoprost) 2.5 Ml Drops, 1 DROP BOTH EYES HS, (Reported) Last Taken: on 10/29/162099 Letrozole (Letrozole) 2.5 Mg Tablet, 1 TAB PO DAILY, (Reported) Last Taken: on 10/29/162099 Levothyroxine Sodium (Levothyroxine Sodium) 75 Mcg Tablet, 75 MCG PO 0600, (Reported) Last Taken: on 10/29/16 0700 Metoprolol Tartrate (Metoprolol Tartrate) 25 Mg Tablet, 25 MG PO BID, (Reported) Last Taken: on 10/30/16 0530 Nitroglycerin (Nitrostat) 0.4 Mg Tablet, 1 TAB SL PRN, (Reported) 1 TAB Q 5 MIN PRN, NOT TO EXCEED 3 DOESES IN 15 MINUTES Last Taken: on Unknown Date & Time Omeprazole (Prilosec) 40 Mg Capsule.dr, 40 MG PO DAILY, (Reported) Last Taken: on 10/30/16 0530 Rivaroxaban (Xarelto) 20 Mg Tablet, 1 TAB PO 1800, (Reported) Last Taken: on 10/26/16 Sacubitril/Valsartan (Entresto 24 mg-26 mg Tablet) 1 Each Tablet, 1 TAB PO BID, (Reported) Last Taken: on 10/28/16 Triamcinolone (Triamcinolone Acetonide) 15 Applic/ 15 G Cr, 1 APPLIC TOP BID, (Reported) Last Taken: on 10/28/16 Currently on Beta Sherron: Yes Beta Sherron Last Taken: 10/30/16 @0530 Medical/Surgical History Anesthesia PMH: Reports: *Angina (AUGUST 2016), *Diabetes (PT DENIES), * Dyspnea, *Hypertension, Arthritis (HAND), COPD (USES O2 PER NC NEEDED AND 5L AT NIGHT), Cancer (ELEAZAR BREAST-MASTECTOMIES), Clotting Problems (ON MEDICATION), Deep Vein Thrombosis (PE AND IN L LEG), Depression, Glaucoma, Headaches, Hyperlipidemia, Obesity (MORBIDLY OBESE), Pacemaker (AICD, HX OF SSS, SINUS NODE DYSFUNCTION), Pneumonia (2005), Reflux, Renal Disease (STAGE 3 KIDNEY DISEASE), Thyroid Disease, Denies: *ID, Anesthesia Reactions (NO AIRWAY ISSUES) , Asthma, Blood Transfusion Reac, CHF, CVA/Stroke/TIA, Malignant Hyperthermia, Seizures, Sleep Apnea Smoking Status: Never smoker Use Chewing Tobacco?: No Second Hand Exposure: No Substance Use Type: does not use Alcohol Intake: none HX of Last Menstrual Period: POST MENOPAUSAL Past Surgical History Orthopedic Surgeries: Yes - BACK; EXC TAILBONE; ELEAZAR TKA Abdominal Surgeries: Yes - ARAM/APPY; ELEAZAR ING HERNIA Genitourinary Surgeries: Cardiac Surgeries: Yes - PACEMAKER/DEFIB; HEART CATH Endocrine Surgeries: Yes - 1/2 OF THYROID REMOVED Reproductive Surgeries: Yes - BILATERAL BREAST BX AND MASTECTOMY; REV OF MAST SCAR Neurological Surgeries: Ear Surgeries: Nose Surgeries: Throat Surgeries: Other Surgeries: Yes - ELEAZAR CATARACT; COLONOSCOPY Anesthesia Adverse Reactions: FOUND none Family Hx of Anesthesia Advers: none Hx of Motion Sickness: No Pertinent Findings Laboratory Tests 10/30/16 08:09 EKG Rhythm: Paced Physical Exam Respiratory: Bilat breath sounds equal, Lungs clear Cardiovascular: FOUND Regular rate, rhythm, FOUND No murmur Airway Assessment Mallampati Score: I TMD: 3 Fingerbreadths Neck Extension: Good Teeth: Upper Dentures, Lower Dentures Overall Assessment: No Airway Concerns ASA: 3 Plan Anesthesia Plan: Other (AX Block) Discussion Discussed risks/options/alternatives of anesthesia and questions answered. Patient consents. Nursing pain assessment noted. Attestation Statement Prior to the delivery of any anesthetic medication, I examined the patient, developed the plan, obtained the patient's consent and discussed the risk and benefits of the procedure with the patient/guardian. ANEUDY MOLINA CRNA Oct 30, 2016 08:20
[2016-10-30] MEDS ORDERED: LIDOCAINE 1% (10mg/ml) 30ml SDV ONE (08:58)
[2016-10-30] MEDS ORDERED: BUPIVACAINE 0.25% (2.5mg/ml) INJ 30ml SDV ONE (08:58)
[2016-10-30] MEDS ORDERED: FENTANYL 100mcg/2ml INJECTION ONE (09:36)
[2016-10-30 10:51] VITALS: BP 135/76; PULSE 81; RESP 16; TEMP 98.6; O2SAT 91
--- NOTE | 2016-10-30 10:55 | ANESPD ---
Peripheral Nerve Blockade Physician: Art Garrido MD Date: 10/30/16 Surgical Procedure: Left CTR Discussion Discussed risks/options/alternatives of anesthesia and questions answered. Patient consents. Nursing pain assessment noted. Block Employed: Axillary Approach: left side confirmed Position: semi-chase Patient: Consent, risks/benefits discussed, Informed, post block act. discussed Monitors: EKG, SpO2, NIBP IV Sedation: Yes Sedation: sedate w/meaningful contact Midazolam (mg): 2 Decadron (mg): 4 Initial Vital Signs First Documented Vital Signs Date Time Temp Pulse Resp B/P Pulse Ox O2 Delivery O2 Flow Rate FiO2 10/30/16 08:00 97.7 73 16 130/60 91 Room Air Post Vital Signs Vital Signs Date Time Temp Pulse Resp B/P Pulse Ox O2 Delivery O2 Flow Rate FiO2 10/30/16 08:00 97.7 73 16 130/60 91 Room Air Initial Pain Score: 0 Post Block Score: 0 Prep: chlorhexadine/ETOH Ultrasound Used?: Yes Nerve Simulator mA set at: 1.0 Injectate Lidocaine (%): 1.5 Lidocaine (mL): 30 Was Epi 1:200,000 Used?: Yes Injection Injection made incrementally with constant monitoring and aspiration every [5] ml. ANEUDY MOLINA CRNA Oct 30, 2016 10:55
--- NOTE | 2016-10-30 10:56 | ANESPO ---
Post-Op Note Date 10/30/16 Time: 10:55 Status Pt Participated in Evaluation: Pt participated in person Vital Signs Date Time Temp Pulse Resp B/P Pulse Ox O2 Delivery O2 Flow Rate FiO2 10/30/16 08:00 97.7 73 16 130/60 91 Room Air Respiratory Function: Airway patent, Regular respirations Cardiovascular Function: Regular pulse Telemetry Pattern: Paced Mental Status: Alert/oriented Pain Level Intensity: 0 Hydration: IV infusing Complications during Recovery None apparent Follow-Up Instructions Instructions Per Surgeon ANEUDY MOLINA CRNA Oct 30, 2016 10:56
[2016-10-30 11:05] VITALS: BP 113/53; PULSE 70; RESP 20; O2SAT 90
--- NOTE | 2016-10-30 11:06 | PDOPERATE ---
Operative Note Date of Opeation 10/30/16 Preoperative Diagnosis Left carpal tunnel syndrome, left middle finger trigger finger Postoperative Diagnosis same Operation Left carpal tunnel release, left middle finger trigger finger release Surgeon Khalif Garrido MD Complications None. Anesthesia axillary block with local Tourniquet Time Please see Anesthesia Record. Estimated Blood Loss Minimal. Description of Procedure The patient and the operative extremity were identified and marked in the preoperative holding area. The patient was brought back to the operating suite and placed supine on the operating table. The patient was placed under general anesthesia. The left upper extremity was prepped and draped in my normal sterile fashion. A timeout was preformed. The arm was exsanguinated, and the tourniquet was inflated to 250 mmHg. The wrist incision site was injected with 0.25% Marcaine and 1% Lidocaine. A 2.5 cm incision was made just ulnar to the thenar crease.Sharp dissection was carried down through the skin and subcutaneous fat, down to the palmar fascia and down to the transverse carpal ligament which was then excised under direct visualization, first with a scalpel and then completed both proximally and distally with scissors under direct visualization until all tight bands were released around the nerve. The nerve looked like it was in good shape. The wound was then irrigated, and the incision was closed with a 3-0 nylon in simple interrupted fashion. I think made a second 1 cm incision in line with the middle digit. Blunt dissection was carried down to the flexor tendon. With the soft tissues protected a release of the A1 adolfo was performed sharply. The wound was irrigated then closed again with 3-0 nylon. A sterile soft dressing was placed. The tourniquet was let down. The patient was allowed to awaken from general anesthesia and was taken to the recovery room under the care of Anesthesia. The patient tolerated the procedure well. There were no complications. NAVIN GARRIDO MD Oct 30, 2016 11:06
[2016-10-30 11:20] VITALS: BP 102/55; PULSE 72; RESP 22; O2SAT 91
[2016-10-30 11:35] VITALS: BP 149/64; PULSE 72; RESP 22; O2SAT 91
== END 2016-10-30 11:55 | disposition home or self-care (01) ==
LOC: NSC 07:31
PROVIDERS: ATTEND Orthopaedic Surgery
DX: G56.02 Carpal tunnel syndrome, left upper limb (principal); M65.332 Trigger finger, left middle finger; I25.119 Atherosclerotic heart disease of native coronary artery with unspecified angina pectoris; Z95.0 Presence of cardiac pacemaker; J44.9 Chronic obstructive pulmonary disease, unspecified; F32.9 Major depressive disorder, single episode, unspecified; K21.9 Gastro-esophageal reflux disease without esophagitis; Z86.718 Personal history of other venous thrombosis and embolism; E78.00 Pure hypercholesterolemia, unspecified; E03.9 Hypothyroidism, unspecified; I12.9 Hypertensive chronic kidney disease with stage 1 through stage 4 chronic kidney disease, or unspecified chronic kidney disease; E11.22 Type 2 diabetes mellitus with diabetic chronic kidney disease; N18.3 Chronic kidney disease, stage 3 (moderate); Z79.02 Long term (current) use of antithrombotics/antiplatelets; Z79.899 Other long term (current) drug therapy
CPT/HCPCS: 26055; 36415; 64721; 80053; 85025; A6222; J3010; J7030

== ENCOUNTER 2016-12-24 12:22 | Day surgery (SDC) | payer MEDICARE, OTHER ==
[2016-12-24] VITALS (9 sets, daily range): BP systolic 137–169; BP diastolic 62–92; PULSE 65–82; RESP 18; TEMP 98–98.4; O2SAT 90; Ht 160 cm; Wt 101.0 kg
[~2016-12-24] VITALS: Ht 160 cm; Wt 101.0 kg
[~2016-12-24 12:22] MED LIST changes: -LIDOCAINE 1% (10mg/ml) 2ml SDV INJ ONE; -LR 1,000 ML IV SCH; -NORMAL SALINE 1,000 ML IV ONE
--- OUTSIDE RECORDS SUMMARY | 2016-12-24 12:27 | XMS REPORT | Continuity of Care Document ---
Author Author [facility] Organization [facility] Address Unknown Phone Unavailable Allergies Active Description [...] Status Pt. Type Provider Facility Loc./Unit Complaint [id number] 10/27/2013 11:30:00 2013 11:30:00 Art Cyr DO [facility]
--- OUTSIDE RECORDS SUMMARY | 2016-12-24 12:28 | XMS REPORT | Continuity of Care Document ---
Author Author [facility] Organization [facility] Address Unknown Phone Unavailable Support Name Relationship Address Phone NAVIN BARDALES MD Caregiver [address] [place] [address] Unavailable VIKY CANAS DO Caregiver [address] [place] [address] Unavailable ISRRAEL ZUNIGA Next Of Kin Unknown [phone] CP Insurance Providers Guarantor Kim Zuniga Address [address] [address] Email DENIED 16 Payer Medicare Policy Number [id number] Subscriber's Name Kim Zuniga Relationship 18 Self Effective Date 04 Payer Other A Insurance Policy Number [id number] Subscriber's Name Kim Zuniga Relationship 18 Self Advance Directives Directive Response Recorded Date/Time Ordered Resuscitation Status Full Code 10/29/16 2:53pm Resuscitation Documents on File No 10/30/16 7:59am DPOA for Healthcare Only No 10/30/16 7:59am Living Will No 10/30/16 7:59am Advanced Directive or Resuscitation Comments PAMPHLET GIVEN 10/30/16 7:59am Problems Active Problems Medical Problem Onset Date Status Bilateral breast cancer Unknown Acute CAD (coronary artery disease) Unknown Chronic COPD (chronic obstructive pulmonary disease) Unknown Chronic GERD (gastroesophageal reflux disease) Unknown Chronic History of DVT (deep vein thrombosis) Unknown Resolved History of pulmonary embolus (PE) Unknown History of sick sinus syndrome Unknown Chronic Hypertension Unknown Chronic Hypothyroidism Unknown Chronic Presence of combination internal cardiac defibrillator (ICD) and pacemaker Unknown Chronic Past Problems Medical Problem Onset Date Chest wall contusion Unknown Contusion of arm, right Unknown Elevated INR Unknown Postoperative hypotension Unknown Right rib fracture Unknown Medications Current Home Medications Medication Dose Units Route Directions Days Qty Instructions Start Date Acetaminophen (Tylenol Extra Strength) 500 Mg Tablet 1-2 Tab Oral Every 6 Hours as needed for Pain 12/18/15 Allopurinol 300 Mg Tablet 300 Mg Oral Bedtime 11/16/15 Amitriptyline Hcl 50 Mg Tablet 50 Mg Oral Bedtime 05/19/10 Bumetanide 2 Mg Tablet 1 Mg Oral Daily 11/16/15 Calcium Citrate 200 Mg Tablet 600 Mg Oral Twice A Day 09/01/16 Cholecalciferol (Vitamin D3) (Vitamin D-400) 400 Unit Tablet 1 Tab Oral Twice A Day 09/01/16 Digoxin (Digox) 125 Mcg Tablet 1 Tab Oral Daily 09/01/16 Latanoprost 2.5 Ml Drops 1 Drop Both Eyes Bedtime 11/16/15 Letrozole 2.5 Mg Tablet 1 Tab Oral Daily 09/01/16 Levothyroxine Sodium 75 Mcg Tablet 75 Mcg Oral 0600 11/16/15 Metoprolol Tartrate 25 Mg Tablet 25 Mg Oral Twice A Day 11/16/15 Nitroglycerin (Nitrostat) 0.4 Mg Tablet 1 Tab Sublingual As Needed 1 TAB Q 5 MIN PRN, NOT TO EXCEED 3 DOESES IN 15 MINUTES 09/01/16 Omeprazole (Prilosec) 40 Mg Capsule. 40 Mg Oral Daily 05/19/10 Rivaroxaban (Xarelto) 20 Mg Tablet 1 Tab Oral 1800 09/01/16 Sacubitril/Valsartan (Entresto 24 Mg-26 Mg Tablet) 1 Each Tablet 1 Tab Oral Twice A Day 09/01/16 Triamcinolone (Triamcinolone Acetonide) 15 Applic/15 G Cr 1 Applic Topically Twice A Day 11/16/15 Past Home Medications Medication Directions Ordered Status Amlodipine Besylate (Norvasc) 10 Mg Tablet, 10 Mg Oral Daily 12/23/08 Discontinued Cholecalciferol (Vitamin D) 400 Unit Capsule, 12/23/08 Discontinued Duloxetine Hcl (Cymbalta) 60 Mg Capsule., Daily 12/23/08 Discontinued Esomeprazole Mag Trihydrate (Nexium) 40 Mg Capsule., 40 Mg Oral 12/23/08 Discontinued Flaxseed (Flaxseed Oil) 1,000 Mg Capsule, Daily 12/23/08 Discontinued Ipratropium [place] (Atrovent Hfa) 12.9 Gm Aer.w.adap, Every 6 [...] Onset Date Status Chewing Tobacco Status No 10/30/2016 8:44am Not Applicable Not Applicable Hx Substance Use No 10/30/2016 8:44am Not Applicable Not Applicable Hx Alcohol Use No 10/30/2016 8:44am Not Applicable Not Applicable Has the pt used tobacco in the last 12 months No 10/30/2016 8:44am Not Applicable Not Applicable Tobacco Usage none 11/16/2015 11:21am Not Applicable Not Applicable Query Response Start Date Stop Date Smoking Status Never smoker Hospital Discharge Instructions No hospital discharge instructions. Plan of Care Discharge Date 10/30/16 11:55am Prescriptions See Medication Section Functional Status Query Response Date Recorded Ability to complete ADL's impeded by No change October 30, 2016 7:59am Allergies, Adverse Reactions, Alerts Allergen Type Severity Reaction Status Last Updated Codeine Allergy Severe COULDN'T BREATH,HEART RACING Active 10/30/16 Immunizations Query Response on File Recorded Date/Time Hx Influenza Vaccination Y JUL 2016 10/30/16 8:44am Hx Pneumococcal Vaccination Y 201010/30/16 8:44am Hx Tetanus, Diptheria, Pertussis Y MORE THAN 5 YRS. AGO 12/22/08 5:47pm Hx Influenza Vaccination Y JUL 2016 10/30/16 8:44am Hx Tetanus, Diptheria, Pertussis Y MORE THAN 5 YRS. AGO 12/22/08 5:47pm Influenza Vaccine Hx SEP 2015 12/21/15 12:31pm Vital Signs Acute Vital Signs Vital Response Date/Time Temperature (Fahrenheit) 98.6 deg F (96.8 - 99.1) 10/30/2016 10:51am Temperature (Calculated Celsius) 37.01258 degrees C (36.0 - 37.3) 10/30/2016 10:51am Temperature Source Temporal 10/30/2016 10:51am Pulse Rate (adult) 72 bpm (60 - 100) 10/30/2016 11:35am Respiratory Rate 22 breaths/min (10 - 20) 10/30/2016 11:35am O2 Sat by Pulse Oximetry 91 % (90 - 100) 10/30/2016 11:35am Oxygen Delivery Method Room Air 10/30/2016 11:35am Blood Pressure 149/64 mm Hg 10/30/2016 11:35am Blood Pressure Source Automatic Cuff 10/30/2016 11:35am Height (Feet) 5 feet 10/30/2016 7:53am Height (Inches) 3.00 inches 10/30/2016 7:53am Weight (Kilograms) 99.700 kg 10/30/2016 7:53am Body Mass Index (BMI) 38.9 10/30/2016 7:53am Results Laboratory Results Test Name Result Units Flags Reference Collection Date/Time Result Date/ Time Comments White Blood Count 10.0 T/MM3 4.5-11.0 10/30/2016 8:09am 10/30/2016 8: 16am Red Blood Count 3.69 M/MM3 L 4.00-5.20 10/30/2016 8:0910/30/2016 8: 16am Hemoglobin 11.2 GM/DL L 12-16 10/30/2016 8:0910/30/2016 8:16am Hematocrit 36.7 % 36-46 10/30/2016 8:10/30/2016 8:16am Mean Corpuscular Volume 99.5 UM3 80-100 10/30/2016 8:0910/30/2016 8: 16am Mean Corpuscular Hemoglobin 30.4 UUG 26-34 10/30/2016 8:2016 8:16am Mean Corpuscular Hemoglobin Concent 30.5 GM/DL L 31-37 10/30/2016 8:10/30/2016 8:16am RDW Standard Deviation 53.9 FL H 36.9-50.2 10/30/2016 8:10/30/2016 8:16am Platelet Count 263 T/MM3 130-400 10/30/2016 8:10/30/2016 8:16am Mean Platelet Volume 9.6 UM3 9.4-12.4 10/30/2016 8:0910/30/2016 8: 16am Neutrophils (%) (Auto) 66.2 % H 33-66 10/30/2016 8:10/30/2016 8: 16am Lymphocytes (%) (Auto) 22.5 % L 23-45 10/30/2016 8:10/30/2016 8: 16am Monocytes (%) (Auto) 8.8 % 0-9.0 10/30/2016 8:10/30/2016 8:16am Eosinophils (%) (Auto) 1.8 % 0-4 10/30/2016 8:10/30/2016 8:16am Basophils (%) (Auto) 0.5 % 0-2 10/30/2016 8:10/30/2016 8:16am Immature Granulocyte % (Auto) 0.2 % 0.0-0.5 10/30/2016 8:2016 8:16am Absolute Neutrophils (auto) 6.7 T/MM3 1.8-7.7 10/30/2016 8:2016 8:16am Absolute Lymphocytes (auto) 2.3 T/MM3 1-4.8 10/30/2016 8:2016 8:16am Absolute Monocytes (auto) 0.9 T/MM3 H 0-0.8 10/30/2016 8:2016 8:16am Absolute Eosinophils (auto) 0.2 T/MM3 0-0.5 10/30/2016 8:2016 8:16am Absolute Basophils (auto) 0.1 T/MM3 0-0.2 10/30/2016 8:10/30/2016 8:16am Absolute Immature Granulocyte (auto 0.02 T/MM3 0.00-0.03 10/30/2016 8: 10/30/2016 8:16am Icterus Index < 2 0-7 10/30/2016 8:10/30/2016 8:25am Chemistry Specimen Hemolysis 26 H 0-25 10/30/2016 8:10/30/2016 8: 25am 26-70: Specimen Exhibited Slight Hemolysis - can falsely elevate K (Potassium) and Urine Protein. Turbidity < 20 0-20 10/30/2016 8:10/30/2016 8:25am Sodium Level 145 MEQ/L H 134-144 10/30/2016 8:10/30/2016 8:25am Potassium Level 4.9 MEQ/L 3.6-5 10/30/2016 8:10/30/2016 8:25am Chloride Level 104 MEQ/L 98-107 10/30/2016 8:10/30/2016 8:25am Carbon Dioxide Level 25 MEQ/L 22-30 10/30/2016 8:10/30/2016 8: 25am Anion Gap 16 MEQ/L H 5-15 10/30/2016 8:10/30/2016 8:25am Blood Urea Nitrogen 56.0 MG/DL *H 7-17 10/30/2016 8:10/30/2016 8: 34am Creatinine 1.9 MG/DL H 0.7-1.2 10/30/2016 8:10/30/2016 8:25am BUN/Creatinine Ratio 30 RATIO H 6-26 10/30/2016 8:10/30/2016 8: 25am Glomerular Filtration Rate Calc 26 10/30/2016 8:10/30/2016 8: 25am Glucose Level 121 MG/DL H 65-110 10/30/2016 8:10/30/2016 8:25am Calculated Osmolality 296 MOSM/KG H 261-280 10/30/2016 8:2016 8:25am Calcium Level 10.2 MG/DL 8.4-10.2 10/30/2016 8:10/30/2016 8:25am Total Bilirubin 0.60 MG/DL 0.20-1.30 10/30/2016 8:10/30/2016 8: 25am Alkaline Phosphatase 58 U/L 38-126 10/30/2016 8:10/30/2016 8:25am Total Protein 8.3 G/DL H 6.3-8.2 10/30/2016 8:10/30/2016 8:25am Albumin 4.4 G/DL 3.5-5.0 10/30/2016 8:10/30/2016 8:25am Globulin 3.9 G/DL H 2.4-3.6 10/30/2016 8:10/30/2016 8:25am Albumin/Globulin Ratio 1.1 RATIO 1.1-2.2 10/30/2016 8:09am 10/30/2016 8 :25am Aspartate Amino Transf (AST/SGOT) 25 U/L 14-36 10/30/2016 8:09am 2016 8:25am Alanine Aminotransferase (ALT/SGPT) 23 U/L 9-52 10/30/2016 8:09am 10/30 8:25am Procedures Procedure Status Date Provider(s) Carpal tunnel release Completed 10/30/16 NAVIN BARDALES MD Encounters Encounter Location Arrival/Admit Date Discharge/Depart Date Attending Provider Departed [facility] 10/30/16 7:31am 10/30/16 11 :55am NAVIN BARDALES MD
--- NOTE | 2016-12-24 12:30 | NUR ---
Admit Patient admitted to medical unit room 137 from 's office. Patient denies pain. Alert and oriented, answers questions appropriately. Admit process started.
[2016-12-24] MEDS ORDERED: NORMAL SALINE 500 ML IV SCH (12:40)
[2016-12-24 13:17] LABS: BASOPHILS % (AUTO) 0.3 % (0-2); EOSINOPHILS # (AUTO) 0.1 T/MM3 (0-0.5); EOSINOPHILS % (AUTO) 0.7 % (0-4); HCT - HEMATOCRIT 27.3 % (36-46); HGB - HEMOGLOBIN 8.1 GM/DL (12-16); IMMATURE GRANULOCYTE # (AUTO) 0.06 T/MM3 (0.00-0.03); IMMATURE GRANULOCYTE % (AUTO) 0.5 % (0.0-0.5); LYMPHOCYTES % (AUTO) 16.8 % (23-45); MEAN CORPUSCULAR HGB 29.9 UUG (26-34); MEAN CORPUSCULAR HGB CONC(MCHC 29.7 GM/DL (31-37); MEAN CORPUSCULAR VOLUME 100.7 UM3 (80-100); MEAN PLATELET VOLUME 9.2 UM3 (9.4-12.4); MONOCYTES # (AUTO) 0.7 T/MM3 (0-0.8); MONOCYTES % (AUTO) 5.9 % (0-9.0); NEUTROPHILS % (AUTO) 75.8 % (33-66); RED BLOOD COUNT 2.71 M/MM3 (4.00-5.20); WBC - WHITE BLOOD COUNT 11.9 T/MM3 (4.5-11.0)
[2016-12-24] MEDS ORDERED: SPIR25TA4 PO (13:20)
[2016-12-24 13:23] LABS: INR 1.45 (0.77-1.03); PROTHROMBIN TIME 15.9 SEC (9.48-12.52)
[2016-12-24 13:28] LABS: ANION GAP 14 MEQ/L (5-15); BUN/CREATININE RATIO 25 RATIO (6-26); CALCIUM 10.1 MG/DL (8.4-10.2); CHLORIDE 102 MEQ/L (98-107); CO2 - CARBON DIOXIDE 30 MEQ/L (22-30); CREATININE 1.4 MG/DL (0.7-1.2); GLOMERULAR FILTRATION RATE 36; GLUCOSE 152 MG/DL (65-110); POTASSIUM 4.4 MEQ/L (3.6-5); SODIUM 146 MEQ/L (134-144)
[2016-12-24] MEDS ORDERED: PANTOPRAZOLE 40mg INJECTION IV SCH (13:30)
--- NOTE | 2016-12-24 13:38 | HPPDOC ---
DELTA ROJAS V CUSHION BUILDER 12/24/16 1310: HPI - Adult Date DATE: 12/24/16 TIME: 13:07 General Chief Complaint: Anemia History of Present Illness Mrs Mcgraw is a pleasant 76-year-old female who presented to see her primary care provider today for evaluation of dizziness and reported anemia. She reported that she saw her core winder machine operator last week, Dr.Jesus Charmaine Mast at [facility] cardiology group. Routine labs revealed anemia with a hemoglobin of 7.6. She was instructed to follow with her primary care provider. Today she did present to [facility] and saw her PCP Dr. Montes. A recheck of hemoglobin did reveal continued anemia with a hemoglobin of 7.8. She reported having black tarry stools last week for approximately 4 days. She is chronically on Xarelto for history of pulmonary emboli and DVT. Given the concern of symptomatically anemia, accompanied with her chronic comorbidities as well as chronic anticoagulation. The hospitalist services were contacted and accepted patient for direct admission as an outpatient for further evaluation and treatment. This point, it is expected that her stay will be less than 2 overnights. We did discuss advanced directives and patient does verify she wishes to be a full code Did review lab history, On 10/30/16, hemoglobin was 11.2 preoperatively. Outpatient lab on 12/19/16 was 7.6. Today at [facility] Hgb was 7.8. Past Medical History Past Medical History Coronary artery disease Type II diabetes History of breast cancer with bilateral mastectomy Hypertension. Cardiac pacemaker COPD GERD Hypercholesterolemia and hypothyroidism. Six sinus syndrome Thyroid goiter Depression History of PE/DVT, chronic anticoagulation-Xarelto Surgical History Patient's Surgical History: Cholecystectomy-1974 appendectomy-1974 partial thyroidectomy cataract removal Pacemaker insertion Back surgery-1995 Breast biopsy-1996. Knee replacement-2004 Colonoscopy-2005. Cataract extraction 2006. Right inguinal hernia repair 2008 Pacemaker defibrillator 2009, 2015 Bilateral mastectomy-2016 Current Medications Home Meds Reported Medications Spironolactone (Spironolactone) 25 Mg Tablet, 25 MG PO BID, TAB 12/24/16 Nitroglycerin (Nitrostat) 0.4 Mg Tablet, 1 TAB SL PRN, TAB 1 TAB Q 5 MIN PRN, NOT TO EXCEED 3 DOESES IN 15 MINUTES 09/01/16 Cholecalciferol (Vitamin D3) (Vitamin D-400) 400 Unit Tablet, 1 TAB PO BID 09/01/16 Calcium Citrate (Calcium Citrate) 200 Mg Tablet, 600 MG PO BID 09/01/16 Rivaroxaban (Xarelto) 20 Mg Tablet, 1 TAB PO 1800 09/01/16 Letrozole (Letrozole) 2.5 Mg Tablet, 1 TAB PO DAILY 09/01/16 Sacubitril/Valsartan (Entresto 24 mg-26 mg Tablet) 1 Each Tablet, 1 TAB PO BID 09/01/16 Digoxin (Digox) 125 Mcg Tablet, 1 TAB PO DAILY 09/01/16 Acetaminophen (Tylenol Extra Strength) 500 Mg Tablet, 1-2 TAB PO Q6H Y for PAIN , TAB 12/18/15 Allopurinol (Allopurinol) 300 Mg Tablet, 300 MG PO HS 11/16/15 Levothyroxine Sodium (Levothyroxine Sodium) 75 Mcg Tablet, 75 MCG PO 0600 11/16/15 Latanoprost (Latanoprost) 2.5 Ml Drops, 1 DROP BOTH EYES HS 11/16/15 Bumetanide (Bumetanide) 2 Mg Tablet, 1 MG PO DAILY 11/16/15 Triamcinolone (Triamcinolone Acetonide) 15 Applic/15 G Cr, 1 APPLIC TOP BID 11/16/15 Metoprolol Tartrate (Metoprolol Tartrate) 25 Mg Tablet, 25 MG PO BID 11/16/15 Omeprazole (Prilosec) 40 Mg Capsule.dr, 40 MG PO DAILY 05/19/10 Amitriptyline Hcl (Amitriptyline Hcl) 50 Mg Tablet, 50 MG PO HS 05/19/10 Allergies: Coded Allergies: codeine (Verified Allergy, Severe, COULDN'T BREATH,HEART RACING, 10/30/16) HAS HAD COUGH MEDICINE WITH CODEINE AND DID FINE Family History Family History: Father-coronary artery disease. Mother-coronary artery disease, congestive heart failure Brother-coronary artery disease, liver cancer Social History Smoking Status: Never smoker Does patient use chewing tobac: No Second Hand Exposure: No Substance Use Type: does not use Alcohol Intake: none Housing: house Current Occupational Status: retired Advance Directives: Yes DPOA for Healthcare Only, Yes Full Code Social History Comments PCP Dr Montes Survey And Mapping Technician Dr. Jhonatan Patel Oncologist Dr. Lucas Monique Review of Systems Constitutional: REPORTS: dizziness, fatigue GI Lower Abdomen: melena (currently resolved) All Other Systems All Other Systems: Reviewed (remainder of 10-point ROS Neg.) Physical Exam General General Nourishment: well nourished, well developed Vital Signs Vital Signs Date Time Temp Pulse Resp B/P Pulse Ox O2 Delivery O2 Flow Rate FiO2 12/24/16 13:05 98.4 78 18 137/65 90 Room Air Height (Feet): 5 Height (Inches): 3.00 Eyes Brief: FOUND: EOMI ENMT Brief: FOUND: mucosa moist Respiratory Brief: FOUND: clear all barros, equal bilaterally, NOT FOUND: wheezes Cardiovascular (brief) Cardiac Brief: FOUND: murmur, regular rate, regular rhythm, NOT FOUND: pedal edema Abdomen (brief) Abdominal Brief: FOUND: BS normo active x4, soft, NOT FOUND: distended, tender Integumentary (brief) Integumentary Brief: FOUND: dry, pink, warm Neurologic (brief) Neurological Brief: FOUND: cranial 2-12 intact, motor (Moves all extremities equal) Neurologic RN Documented GCS Eye Opening: Verbal: Motor: Total: Psychiatric (brief) FOUND: alert, attentive, normal affect, oriented Assessment & Plan Problems: (1) Anemia Status: Acute (2) Chronic anticoagulation Status: Chronic Assessment & Plan: Xarelto (3) CAD (coronary artery disease) Status: Chronic (4) COPD (chronic obstructive pulmonary disease) Status: Chronic (5) Hypothyroidism Status: Chronic (6) GERD (gastroesophageal reflux disease) Status: Chronic (7) Hypertension Status: Chronic (8) Presence of combination internal cardiac defibrillator (ICD) and pacemaker Status: Chronic (9) History of sick sinus syndrome Status: Chronic (10) History of pulmonary embolus (PE) Status: Chronic (11) History of DVT (deep vein thrombosis) Status: Resolved (12) Bilateral breast cancer Status: Resolved Assessment & Plan: Bilateral mastectomy in 2016 Plan/Intensity of Service Admit patient to outpatient observation under the care of Dr. Lujan for symptomatic anemia Will obtain the following laboratory studies on admission. CBC, BMP, iron, ferritin, vitamin B12, INR. Will type and screen patient and give 1 unit of packed red blood cells today. Will obtain stool for occult blood. Will monitor hemoglobin closely. Schedule Protonix 40 mg daily for GI protection Place Xarelto on hold currently. Obtain orthostatic vital signs. Consultation placed to but Dr. Lewis for further surgical evaluation and discussion regarding potential outpatient colonoscopy Recheck CBC tomorrow morning to follow blood counts Monitor Accu-Cheks PRN , however, in reviewing current medication list. She does not appear to be on any medicine for diabetes. Oxygen as needed as patient does utilize this at night. Discuss further plan of care and orders with attending, Dr. Lujan DVT Prophylaxis: SCD'S Code Status Full Code Hospital Course Summary Disclaimer The hospital course summary below is not to be considered part of the above Progress Note. Hospital Course Summary Admit patient to outpatient observation under the care of Dr. Lujan for symptomatic anemia Will obtain the following laboratory studies on admission. CBC, BMP, iron, ferritin, vitamin B12, INR. Will type and screen patient and give 1 unit of packed red blood cells today. Will obtain stool for occult blood. Will monitor hemoglobin closely. Schedule Protonix 40 mg daily for GI protection Place Xarelto on hold currently. Obtain orthostatic vital signs. Consultation placed to vijaya Lewis for further surgical evaluation and discussion regarding potential outpatient colonoscopy Recheck CBC tomorrow morning to follow blood counts Monitor Accu-Cheks, however, in reviewing current medication list. She does not appear to be on any medicine for diabetes. Oxygen as needed as patient does utilize this at night. Discuss further plan of care and orders with attending, TRISTEN Buck MD 12/24/16 7974: Past Medical History Current Medications Home Meds Reported Medications Spironolactone (Spironolactone) 25 Mg Tablet, 25 MG PO BID, TAB 12/24/16 Nitroglycerin (Nitrostat) 0.4 Mg Tablet, 1 TAB SL PRN, TAB 1 TAB Q 5 MIN PRN, NOT TO EXCEED 3 DOESES IN 15 MINUTES 09/01/16 Cholecalciferol (Vitamin D3) (Vitamin D-400) 400 Unit Tablet, 1 TAB PO BID 09/01/16 Calcium Citrate (Calcium Citrate) 200 Mg Tablet, 600 MG PO BID 09/01/16 Rivaroxaban (Xarelto) 20 Mg Tablet, 1 TAB PO 1800 09/01/16 Letrozole (Letrozole) 2.5 Mg Tablet, 1 TAB PO DAILY 09/01/16 Sacubitril/Valsartan (Entresto 24 mg-26 mg Tablet) 1 Each Tablet, 1 TAB PO BID 09/01/16 Digoxin (Digox) 125 Mcg Tablet, 1 TAB PO DAILY 09/01/16 Acetaminophen (Tylenol Extra Strength) 500 Mg Tablet, 1-2 TAB PO Q6H Y for PAIN , TAB 12/18/15 Allopurinol (Allopurinol) 300 Mg Tablet, 300 MG PO HS 11/16/15 Levothyroxine Sodium (Levothyroxine Sodium) 75 Mcg Tablet, 75 MCG PO 0600 11/16/15 Latanoprost (Latanoprost) 2.5 Ml Drops, 1 DROP BOTH EYES HS 11/16/15 Bumetanide (Bumetanide) 2 Mg Tablet, 1 MG PO DAILY 11/16/15 Triamcinolone (Triamcinolone Acetonide) 15 Applic/15 G Cr, 1 APPLIC TOP BID 11/16/15 Metoprolol Tartrate (Metoprolol Tartrate) 25 Mg Tablet, 25 MG PO BID 11/16/15 Omeprazole (Prilosec) 40 Mg Capsule.dr, 40 MG PO DAILY 05/19/10 Amitriptyline Hcl (Amitriptyline Hcl) 50 Mg Tablet, 50 MG PO HS 05/19/10 Allergies: Coded Allergies: codeine (Verified Allergy, Severe, COULDN'T BREATH,HEART RACING, 10/30/16) HAS HAD COUGH MEDICINE WITH CODEINE AND DID FINE Assessment & Plan Problems: (1) Anemia Status: Acute Assessment & Plan: Hemoglobin 14.1 on 10/08/15, 12.1 on 09/30/16 with MCV 98.8, and 7.8 with MCV 100.8 earlier today (2) GI bleed Assessment & Plan: Subacute, likely upper (3) Chronic anticoagulation Status: Chronic Assessment & Plan: Xarelto (4) CAD (coronary artery disease) Status: Chronic Assessment & Plan: +stent (5) GERD (gastroesophageal reflux disease) Status: Chronic Assessment & Plan: Symptomatic (6) Hypertension Status: Chronic (7) History of pulmonary embolus (PE) Status: Chronic Assessment & Plan: Patient reports [place] filter placed in past (8) History of DVT (deep vein thrombosis) Status: Resolved Assessment & Plan: Recurrent (9) CKD (chronic kidney disease), stage III Assessment & Plan: Attributed to hypertensive nephrosclerosis per records; creatinine 1.35 on 09/30/16 (10) Bilateral breast cancer Status: Resolved Assessment & Plan: Bilateral mastectomy in 2016 (11) Presence of combination internal cardiac defibrillator (ICD) and pacemaker Status: Chronic (12) History of sick sinus syndrome Status: Chronic (13) COPD (chronic obstructive pulmonary disease) Status: Chronic (14) Hypothyroidism Status: Chronic Assessment I have independently evaluated and examined this patient. I reviewed the chart, the patient's history, and the CUSHION BUILDER's documented findings as above. We discussed and formulated the assessment and plan as above with additions as below: Mrs. Mcgraw describes semi-formed black stools for 4 days last week followed by increasing weakness and lightheadedness with visual blurring. Lightheadedness is present while she is supine or standing. She denies palpitations or chest pain. She describes chronic heartburn/indigestion with reflux despite use of daily omeprazole. She attributes bladder symptoms to a chronic hiatal hernia. She last had a colonoscopy in 2005. She has not had further black stools but has remained very symptomatic. Hemoglobin was 7.8 in the office today and she was referred for transfusion and surgical consultation for possible endoscopic evaluation. Patient is alert and cooperative. There is generalized pallor. Cranial nerves are intact and motor tone/power within normal limits. Respirations are nonlabored with clear breath sounds. Cardiac rhythm is regular with a 2/6 systolic murmur at the left upper sternal border. Abdomen is obese but soft; there is mild to moderate tenderness in the upper abdomen both right and left particularly along the costal margins. No guarding appreciated. Patient hospitalized in observation basis for transfusion of 1 unit of blood, reassess hemoglobin posttransfusion and in a.m. Dr. Lewis consulted-history most suggestive of upper GI bleed and may benefit from EGD with outpatient colonoscopy. Given history of 2 DVTs and known breast cancer (although in remission) prefer to avoid interruption anticoagulation if possible other than briefly for procedures. Fortunately patient does have a filter and that will protect her lungs if it becomes necessary to interrupt Xarelto longer-term. Elevated MCV-borderline high prior to recent blood loss, further elevated today likely due to reticulocytosis. Anemia workup initiated. Monitor stools for additional blood loss. Plan/Intensity of Service Discussed with Dr. Montes and Dr. Lewis, outpatient records reviewed, laboratory data reviewed. DVT Prophylaxis: Xarelto BOB,DELTA V CUSHION BUILDER December 24, 2016 13:10 TRISTEN LUJAN MD December 24, 2016 16:24
[2016-12-24] MEDS ORDERED: ACETAMINOPHEN 500 MG TABLET PO PRN (13:45)
[2016-12-24] MEDS ORDERED: RIVAROXABAN 20 MG PO SCH (17:30)
[2016-12-24] MEDS: METOPROLOL TARTRATE 25mg TAB - PT OWN PO SCH (18:11)
[2016-12-24] MEDS: SPIRONOLACTONE 25 MG PO SCH (18:11)
[2016-12-24 18:33] LABS: HGB - HEMOGLOBIN 8.5 GM/DL (12-16)
--- NOTE | 2016-12-24 20:16 | CONSF ---
DATE OF CONSULTATION 12/24/2016 HISTORY OF PRESENT ILLNESS This patient is 76 years old. This patient is anticoagulated with Xarelto due to a history of deep venous thrombosis and pulmonary embolus. The patient does have an inferior vena cava filter in place. This patient had a hemoglobin of 11.2 on 10/30/2016. The patient had an appointment with her nursing care attendant on 12/19/2016 and was found to have a hemoglobin of 7.6 at this time. The patient had an office visit with Dr. Montes at the [facility] on 12/24/2016 and had a hemoglobin of 7.8 at that time. The patient reports that she had some black stools for four days last week. Her stools did return back to normal by 12/21/2016. Her stools have had a normal color during the last several days. The patient has not seen any bright red blood or dark red blood in her stools. The patient has had some upper abdominal pain since 2015. This was more prominent at the left upper quadrant of the abdomen than it is at the right upper quadrant of the abdomen. The patient does have some chronic gastroesophageal reflux disease symptoms. She does take Prilosec 40 mg p.o. daily for treatment of the gastroesophageal reflux disease. The patient has not had any previous esophagogastroduodenoscopy procedure. She did undergo a colonoscopy and polypectomy in 2005 as described below. She has had no colonoscopy since then. PAST MEDICAL HISTORY Previous operations: 1. Open cholecystectomy with appendectomy in 1974 at [place], [place]. 2. Colonoscopy with polypectomy in [address] Cabrera at [facility] at [place], [place]. PHYSICAL EXAMINATION VITAL SIGNS: Temperature is 98 degrees oral. Pulse is 65. Respiratory rate is 18. Blood pressure is 147/92. Oxygen saturation is 98% on room air. ABDOMEN: The abdomen is soft and nontender. There are no abdominal masses. The patient does have an old right upper quadrant paramedian abdominal incision scar from her cholecystectomy and appendectomy operation. RECTUM: Exam deferred at this time. LABORATORY DATA The hemoglobin was 11.2 on 10/30/2016. Hemoglobin was 7.6 on 12/19/2016. Hemoglobin was 7.8 earlier today on 12/24/2016. CBC was repeated at [facility] at 1306 hours on 12/24/2016. The hemoglobin was 8.1 and hematocrit was 27.3 at 1306 hours on 12/24/2016. Platelet count is 332,000, which is normal. White blood cell count was 11,900. IMPRESSION 1. Anticoagulation with Xarelto. 2. History of deep venous thrombosis at lower extremity. 3. History of pulmonary embolus. 4. Anemia. 5. History of black stools of four days' duration last week. 6. Upper abdominal pain. 7. Gastroesophageal reflux disease. RECOMMENDATIONS 1. I agree with the transfusion of 1 unit of packed red blood cells today. 2. I agree with keeping the patient on Protonix 40 mg p.o. daily. 3. Hold Xarelto today in anticipation of esophagogastroduodenoscopy tomorrow. 4. Esophagogastroduodenoscopy tomorrow. 5. Colonoscopy later as an outpatient if the esophagogastroduodenoscopy is negative. PATIENT EDUCATION I did talk with the patient today about undergoing esophagogastroduodenoscopy. The nature of this procedure was explained to the patient. Expected benefits were reviewed. Alternatives were reviewed. Potential risks and complications were reviewed. I did tell the patient that biopsies might be performed at the time of the esophagogastroduodenoscopy procedure. I told the patient that there is a chance that we will perform coagulation or application of an endoscopic hemoclip to a bleeding point at the upper gastrointestinal tract found at the time of the esophagogastroduodenoscopy procedure. Questions were solicited from the patient. The patient does appear to understand all this and does wish to proceed with this. I did also talk with the patient today about the possibility of performing colonoscopy as an outpatient if findings at esophagogastroduodenoscopy are negative. The patient does agree to undergo esophagogastroduodenoscopy tomorrow. PLAN 1. Hold Xarelto. 2. Esophagogastroduodenoscopy tomorrow at [facility]. ANA ROSA
[2016-12-24] MEDS ORDERED: AMITRIPTYLINE 50 MG PO SCH (22:00)
[2016-12-24] MEDS ORDERED: EYE BOTH EYES SCH (22:00)
[2016-12-24] MEDS ORDERED: ALLOPURINOL 300 MG TAB - PT OWN PO SCH (22:00)
[2016-12-24] MEDS ORDERED: LATANOPROST 0.005% BOTH EYES SCH (22:00)
[2016-12-24] MEDS ORDERED: CRAMPS PO SCH (22:00)
[2016-12-24] MEDS: PANTOPRAZOLE 40mg INJECTION IV SCH (22:01)
[2016-12-24] MEDS: VALSARTAN PO SCH (22:02)
[2016-12-24] MEDS: SACUBITRIL PO SCH (22:02)
[2016-12-24] MEDS: CALCIUM CITRATE 600 MG PO SCH (22:02)
[2016-12-24] MEDS: TRIAMCINOLONE 0.1% TOP SCH (22:03)
[2016-12-25] VITALS (21 sets, daily range): BP systolic 101–150; BP diastolic 50–69; PULSE 64–79; RESP 15–20; TEMP 97.2–98.4; O2SAT 92–100
[2016-12-25 04:21] LABS: FERRITIN 18.7 NG/ML (11-264)
--- NOTE | 2016-12-25 05:44 | NUR ---
Shift summary: Pt has rested well throughout the night. Pt wears Oxygen at night as she does at home. Pt is pleasant and cooperative. Pt has been NPO since midnight due to EGD today. Pt c/o slight discomfort in back due to "these uncomfortable beds." Pt is up with standby assist and uses cane. Pt has had adequate urinary output. Will continue to monitor.
[2016-12-25] MEDS ORDERED: LEVOTHYROXINE 75 MCG PO SCH (06:00)
[2016-12-25 06:13] LABS: BASOPHILS % (AUTO) 0.3 % (0-2); EOSINOPHILS # (AUTO) 0.2 T/MM3 (0-0.5); EOSINOPHILS % (AUTO) 1.8 % (0-4); HCT - HEMATOCRIT 28.8 % (36-46); HGB - HEMOGLOBIN 8.5 GM/DL (12-16); IMMATURE GRANULOCYTE # (AUTO) 0.03 T/MM3 (0.00-0.03); IMMATURE GRANULOCYTE % (AUTO) 0.3 % (0.0-0.5); LYMPHOCYTES # (AUTO) 2.1 T/MM3 (1-4.8); LYMPHOCYTES % (AUTO) 18.6 % (23-45); MEAN CORPUSCULAR HGB 28.8 UUG (26-34); MEAN CORPUSCULAR HGB CONC(MCHC 29.5 GM/DL (31-37); MEAN CORPUSCULAR VOLUME 97.6 UM3 (80-100); MONOCYTES # (AUTO) 0.9 T/MM3 (0-0.8); MONOCYTES % (AUTO) 7.7 % (0-9.0); NEUTROPHILS #(AUTO)-ABSOLUTE 8.2 T/MM3 (1.8-7.7); NEUTROPHILS % (AUTO) 71.3 % (33-66); RED BLOOD COUNT 2.95 M/MM3 (4.00-5.20); WBC - WHITE BLOOD COUNT 11.5 T/MM3 (4.5-11.0)
[2016-12-25] MEDS: PANTOPRAZOLE 40mg INJECTION IV SCH (08:48)
[2016-12-25] MEDS: SACUBITRIL PO SCH (08:49)
[2016-12-25] MEDS: CALCIUM CITRATE 600 MG PO SCH (08:49)
[2016-12-25] MEDS: SPIRONOLACTONE 25 MG PO SCH (08:49)
[2016-12-25] MEDS: VALSARTAN PO SCH (08:49)
[2016-12-25] MEDS: METOPROLOL TARTRATE 25mg TAB - PT OWN PO SCH (08:49)
[2016-12-25] MEDS: TRIAMCINOLONE 0.1% TOP SCH (08:50)
[2016-12-25] MEDS ORDERED: DIGOXIN 125 MCG PO SCH (09:00)
[2016-12-25] MEDS ORDERED: BUMETANIDE 1 MG PO SCH (09:00)
[2016-12-25] MEDS ORDERED: LETROZOLE 2.5 MG PO SCH (09:00)
[2016-12-25] MEDS ORDERED: NORMAL SALINE 1,000 ML IV PRN (09:30)
[2016-12-25] MEDS ORDERED: LIDOCAINE VISCOUS 2% Oral Soln 15ml UD ONE (10:17)
[2016-12-25] MEDS ORDERED: PROPOFOL 500mg 50 ML IV ONE (10:27)
[2016-12-25] MEDS ORDERED: MIDAZOLAM 2mg/2ml INJECTION ONE (10:28)
[2016-12-25] MEDS ORDERED: FENTANYL 100mcg/2ml INJECTION ONE (10:28)
--- NOTE | 2016-12-25 10:42 | ANESPREOP ---
Anesthesia Record Date and Time DATE: 12/25/16 TIME: 10:39 Proposed Surgical Procedure egd NPO since: mn Allergies: Coded Allergies: codeine (Verified Allergy, Severe, COULDN'T BREATH,HEART RACING, 10/30/16) HAS HAD COUGH MEDICINE WITH CODEINE AND DID FINE Ht/Wt/BMI Height: 5 ' 3.00 " Weight: 101.000 kg BMI: 39.2 kg/m2 Vital Signs Date Time Temp Pulse Resp B/P Pulse Ox O2 Delivery O2 Flow Rate FiO2 12/25/16 10:14 98.2 70 18 101/51 96 Nasal Cannula 5.00 Medications Inpatient Medications Current Medications Medications (Trade) Dose Ordered Sig/Frank Start Time Stop Time Status Last Admin Dose Admin Sodium Chloride (NS) 500 ml @ 0 mls/hr Q0M 12/24/16 12:40 12/24/16 14:34 0 MLS/HR Pantoprazole Sodium (Protonix Iv) 40 mg DAILY 12/24/16 13:30 12/24/16 14:47 DC 12/24/16 13:52 40 MG Acetaminophen (Tylenol Extra Strength) 1-2 Q6H PRN 12/24/16 13:45 Allopurinol (ZYLOPRIM 300 mg) 300 mg HS 12/24/16 22:00 12/24/16 22:04 300 MG Amitriptyline HCl (Elavil) 50 mg HS 12/24/16 22:00 12/24/16 22:03 50 MG Bumetanide (BUMEX 1 mg TAB) 1 mg DAILY 12/25/16 09:00 12/25/16 08:49 1 MG Non-Formulary Medication 600 BID 12/24/16 21:00 12/25/16 08:49 600 Digoxin (Lanoxin) 125 mcg DAILY 12/25/16 09:00 12/25/16 08:48 125 MCG Latanoprost (Xalatan) 1 drop HS 12/24/16 22:00 12/24/16 22:04 1 DROP Letrozole (Femara) 2.5 mg DAILY 12/25/16 09:00 12/25/16 08:48 2.5 MG Levothyroxine Sodium (Synthroid) 75 mcg 0600 12/25/16 06:00 12/25/16 06:11 75 MCG Metoprolol Tartrate (Lopressor) 25 mg BIDWM 12/24/16 17:30 12/25/16 08:49 25 MG Sacubitril/ Valsartan (ENTRESTO 24mg/ 26mg) 1 tab BID 12/24/16 21:00 12/25/16 08:49 1 TAB Spironolactone (Aldactone) 25 mg BID. 12/24/16 17:00 12/25/16 08:49 25 MG Triamcinolone Acetonide (Kenalog 0.1% Cream) 1 applic BID 12/24/16 21:00 12/25/16 08:50 1 APPLIC Pantoprazole Sodium (Protonix Iv) 40 mg BID 12/24/16 21:00 12/25/16 08:48 40 MG Rivaroxaban (Xarelto) 20 mg 1730 12/24/16 17:30 12/24/16 17:30 DC Non-Formulary Medication 1 1 HS 12/24/16 22:00 12/24/16 22:03 1 Sodium Chloride (Normal Saline IV) 1,000 ml @ 50 mls/hr Q20H PRN 12/25/16 09:30 12/25/16 10:20 50 MLS/HR Acetaminophen (Tylenol Extra Strength) 500 Mg Tablet, 1-2 TAB PO Q6H PRN for PAIN, (Reported) Last Taken: on 12/23/162099 Allopurinol (Allopurinol) 300 Mg Tablet, 300 MG PO HS, (Reported) Last Taken: on 12/23/162099 Amitriptyline Hcl (Amitriptyline Hcl) 50 Mg Tablet, 50 MG PO HS, (Reported) Last Taken: on 12/23/16 2100 Bumetanide (Bumetanide) 2 Mg Tablet, 1 MG PO DAILY, (Reported) Last Taken: on 12/23/16 0800 Calcium Citrate (Calcium Citrate) 200 Mg Tablet , 600 MG PO BID, (Reported) Last Taken: on 12/24/16 0800 Cholecalciferol (Vitamin D3) (Vitamin D-400) 400 Unit Tablet, 1 TAB PO BID, (Reported) Last Taken: on 12/24/16 0800 Digoxin (Digox) 125 Mcg Tablet, 1 TAB PO DAILY, (Reported) Last Taken: on 12/24/16 0800 Latanoprost (Latanoprost) 2.5 Ml Drops, 1 DROP BOTH EYES HS, (Reported) Last Taken: on 12/23/16 220 Letrozole (Letrozole) 2.5 Mg Tablet, 1 TAB PO DAILY, (Reported) Last Taken: on 12/24/16 0800 Levothyroxine Sodium (Levothyroxine Sodium) 75 Mcg Tablet, 75 MCG PO 0600, (Reported) Last Taken: on 12/24/16 0630 Metoprolol Tartrate (Metoprolol Tartrate) 25 Mg Tablet, 25 MG PO BID, (Reported) Last Taken: on 12/24/16 08 Nitroglycerin (Nitrostat) 0.4 Mg Tablet, 1 TAB SL PRN, (Reported) 1 TAB Q 5 MIN PRN, NOT TO EXCEED 3 DOESES IN 15 MINUTES Last Taken: on Unknown Date & Time Omeprazole (Prilosec) 40 Mg Capsule.dr, 40 MG PO DAILY, (Reported) Last Taken: on 12/23/162199 Rivaroxaban (Xarelto) 20 Mg Tablet, 1 TAB PO 1800, (Reported) Last Taken: on 12/23/16 1800 Sacubitril/Valsartan (Entresto 24 mg-26 mg Tablet) 1 Each Tablet, 1 TAB PO BID, (Reported) Last Taken: on 12/24/16 08 Spironolactone (Spironolactone) 25 Mg Tablet, 25 MG PO BID, (Reported) Last Taken: on 12/24/16 08 Triamcinolone (Triamcinolone Acetonide) 15 Applic/15 G Cr, 1 APPLIC TOP BID, (Reported) Last Taken: on 12/24/16 0800 Currently on Beta Hserron: Yes Beta Sherron Last Taken: metoprolol 12/25/16 at 0849 Medical/Surgical History Anesthesia PMH: Reports: *Angina (AUGUST 2016-NON CARDIAC), *Diabetes (PT DENIES), *Dyspnea, *Hypertension, Arthritis (HAND), CHF, COPD (USES O2 PER NC NEEDED AND 5L AT NIGHT, 5L/NC), Cancer (ELEAZAR BREAST-MASTECTOMIES), Cardiac Arrythmia (pacemaker dependent, AICD), Clotting Problems (ON MEDICATION), Deep Vein Thrombosis (PE AND IN L LEG), Depression, Glaucoma, Headaches, Hiatal Hernia, Hyperlipidemia, Obesity (MORBIDLY OBESE), Pacemaker (AICD, HX OF SSS, SINUS NODE DYSFUNCTION), Pneumonia (2005), Reflux, Renal Disease (STAGE 3 KIDNEY DISEASE), Sleep Apnea (has cpap but does not wear it ), Thyroid Disease Smoking Status: Never smoker Use Chewing Tobacco?: No Second Hand Exposure: Yes (long history ) Substance Use Type: does not use Alcohol Intake: none Past Surgical History Orthopedic Surgeries: Yes - BACK; EXC TAILBONE; ELEAZAR TKA Abdominal Surgeries: Yes - ARAM/APPY; ELEAZAR ING HERNIA Genitourinary Surgeries: Cardiac Surgeries: Yes - PACEMAKER/DEFIB; HEART CATH Endocrine Surgeries: Yes - 1/2 OF THYROID REMOVED Reproductive Surgeries: Yes - BILATERAL BREAST BX AND MASTECTOMY; REV OF MAST SCAR Neurological Surgeries: No Ear Surgeries: No Nose Surgeries: No Throat Surgeries: No Other Surgeries: Yes - ELEAZAR CATARACT; COLONOSCOPY Anesthesia Adverse Reactions: FOUND none Family Hx of Anesthesia Advers: none Hx of Motion Sickness: No Pertinent Findings Laboratory Tests 12/24/16 13:07 12/25/16 04:45 Test 12/24/16 13:07 Prothromb Time International Ratio 1.45 (0.77-1.03) EKG Rhythm: Paced Physical Exam Respiratory: Decreased breath sounds L, Decreased breath sounds R, Lungs clear Cardiovascular: FOUND Pacemaker, FOUND AICD Airway Assessment Mallampati Score: I TMD: 3 Fingerbreadths Neck Extension: Fair Teeth: Upper Dentures, Lower Dentures Overall Assessment: No Airway Concerns ASA: 4 Plan Anesthesia Plan: TIVA, GETA, MAC Discussion Discussed risks/options/alternatives of anesthesia and questions answered. Patient consents. Nursing pain assessment noted. Present: Family Member Attestation Statement Prior to the delivery of any anesthetic medication, I examined the patient, developed the plan, obtained the patient's consent and discussed the risk and benefits of the procedure with the patient/guardian. DEJUAN LAWRENCE CRNA December 25, 2016 10:42
--- NOTE | 2016-12-25 11:02 | GSPOSTPROC ---
Immediate Operative Note DATE: 12/25/16 TIME: 11:02 Postop Diagnosis: Anemia Surgical Procedure: EGD Surgeon: Debbie ASA: 4 JEANE KIM MD December 25, 2016 11:02
--- NOTE | 2016-12-25 11:16 | NUR ---
CM CM IN TO VISIT PT HE IS AT A PROCEDURE. CM UPDATED WHITEBOARD AND PROVIDED CONTACT INFORMATION.
--- NOTE | 2016-12-25 11:20 | ANESPO ---
Post-Op Note Date 12/25/16 Time: 11:16 Status Pt Participated in Evaluation: Pt participated in person Vital Signs Date Time Temp Pulse Resp B/P Pulse Ox O2 Delivery O2 Flow Rate FiO2 12/25/16 11:15 69 20 107/52 96 Nasal Cannula 5.00 12/25/16 11:06 97.4 Respiratory Function: Airway patent Cardiovascular Function: Regular pulse Mental Status: Alert/oriented Pain Level Intensity: 0 Hydration: IV infusing Complications during Recovery None apparent Follow-Up Instructions Instructions Per Surgeon OCTAVIANO SIERRA CRNA December 25, 2016 11:20
[2016-12-25] MEDS ORDERED: FERR-70 PO (11:51)
--- NOTE | 2016-12-25 16:00 | NUR ---
STATUS PATIENT ALERT AND ORIENTED. VSS. NO COMPLAINTS OF PAIN, N/V/D. UP WITH STANDBY ASSIST IN ROOM. USES CANE FROM HOME. IVL RIGHT FOREARM. NO SIGNS/SYMPTOMS OF GI BLEEDING. PLANS TO DISCHARGE HOME THIS AFTERNOON.
--- NOTE | 2016-12-25 16:33 | DSPDOC ---
General Date Date DATE: 12/25/16 TIME: 16:22 Attending Physician Fadia Lujan MD Admitting Physician Fadia Lujan MD Consulting Physician Endy Kim MD Admitting Diagnosis symptomatic anemia Discharge Diagnosis 1. Iron deficiency anemia 2. History DVT/PE 3. CAD 4. COPD 5. History of breast cancer Procedures EGD on 12/25 with no pathology identified Laboratory Laboratory Tests Test 12/24/16 13:06 12/24/16 13:07 12/24/16 18:26 12/25/16 04:45 White Blood Count 11.9T/MM3 (4.5-11.0) 11.5T/MM3 (4.5-11.0) Red Blood Count 2.71M/MM3 (4.00-5.20) 2.95M/MM3 (4.00-5.20) Hemoglobin 8.1GM/DL (12-16) 8.5GM/DL (12-16) 8.5GM/DL (12-16) Hematocrit 27.3% (36-46) 28.8% (36-46) Mean Corpuscular Volume 100.7UM3 (80-100) 97.6UM3 (80-100) Mean Corpuscular Hemoglobin 29.9UUG (26-34) 28.8UUG (26-34) Mean Corpuscular Hemoglobin Concent 29.7GM/DL (31-37) 29.5GM/DL (31-37) RDW Standard Deviation 56.9FL (36.9-50.2) 59.4FL (36.9-50.2) Platelet Count 332T/MM3 (130-400) 320T/MM3 (130-400) Mean Platelet Volume 9.2UM3 (9.4-12.4) 10.0UM3 (9.4-12.4) Immature Granulocyte % (Auto) 0.5% (0.0-0.5) 0.3% (0.0-0.5) Neutrophils (%) (Auto) 75.8% (33-66) 71.3% (33-66) Lymphocytes (%) (Auto) 16.8% (23-45) 18.6% (23-45) Monocytes (%) (Auto) 5.9% (0-9.0) 7.7% (0-9.0) Eosinophils (%) (Auto) 0.7% (0-4) 1.8% (0-4) Basophils (%) (Auto) 0.3% (0-2) 0.3% (0-2) Absolute Immature Granulocyte (auto 0.06T/MM3 (0.00-0.03) 0.03T/MM3 (0.00-0.03) Absolute Neutrophils (auto) 9.0T/MM3 (1.8-7.7) 8.2T/MM3 (1.8-7.7) Absolute Lymphocytes (auto) 2.0T/MM3 (1-4.8) 2.1T/MM3 (1-4.8) Absolute Monocytes (auto) 0.7T/MM3 (0-0.8) 0.9T/MM3 (0-0.8) Absolute Eosinophils (auto) 0.1T/MM3 (0-0.5) 0.2T/MM3 (0-0.5) Absolute Basophils (auto) 0.0T/MM3 (0-0.2) 0.0T/MM3 (0-0.2) Prothromb Time International Ratio 1.45 (0.77-1.03) Turbidity < 20 (0-20) Sodium Level 146MEQ/L (134-144) Potassium Level 4.4MEQ/L (3.6-5) Chloride Level 102MEQ/L (98-107) Carbon Dioxide Level 30MEQ/L (22-30) Anion Gap 14MEQ/L (5-15) Blood Urea Nitrogen 35.0MG/DL (7-17) Creatinine 1.4MG/DL (0.7-1.2) Glomerular Filtration Rate Calc 36 BUN/Creatinine Ratio 25RATIO (6-26) Glucose Level 152MG/DL (65-110) Calculated Osmolality 292MOSM/KG (261-280) Calcium Level 10.1MG/DL (8.4-10.2) Iron Level 26UG/DL (37-170) Total Iron Binding Capacity 428UG/DL (261-497) Percent Iron Saturation 6% (9-55) Ferritin 18.7NG/ML (11-264) Icterus Index < 2 (0-7) Vitamin B12 Level 422PG/ML (239-931) Chemistry Specimen Hemolysis < 15 (0-25) Outpatient hemoglobin on date of admission 7.8 in the office. History of Present Illness Mrs Mcgraw is a pleasant 76-year-old female who presented to see her primary care provider today for evaluation of dizziness and reported anemia. She reported that she saw her fast food server last week, Dr.Jesus Charmaine Mast at [facility] cardi[facility] group. Routine labs revealed anemia with a hemoglobin of 7.6. She was instructed to follow with her primary care provider. Today she did present to via [facility] clinic and saw her PCP Dr. Canas. A recheck of hemoglobin did reveal continued anemia with a hemoglobin of 7.8. She reported having black tarry stools last week for approximately 4 days. She is chronically on Xarelto for history of pulmonary emboli and DVT. Given the concern of symptomatically anemia, accompanied with her chronic comorbidities as well as chronic anticoagulation. The hospitalist services were contacted and accepted patient for direct admission as an outpatient for further evaluation and treatment. This point, it is expected that her stay will be less than 2 overnights. We did discuss advanced directives and patient does verify she wishes to be a full code Did review lab history, On 10/30/16, hemoglobin was 11.2 preoperatively. Outpatient lab on 12/19/16 was 7.6. Today at [facility] Hgb was 7.8. Hospital Course Mrs. Mcgraw was hospitalized on observation basis for symptomatic anemia. She described dark stools for several days a week prior to admission with subsequent normalization in conjunction with dyspeptic symptoms and history of a hiatal hernia. 1 unit of blood was transfused on the date of admission with hemoglobin improving to 8.5 and significant improvement in clinical symptoms. Additional studies confirmed presence of iron deficiency for which oral supplementation was initiated. She was seen in consultation by Dr. Kim and underwent EGD on the morning of after Xarelto was held the prior day. No peptic disease or gastritis/ duodenitis was identified to explain anemia. Colonoscopy will be scheduled in the near future and the patient is asked to see Dr. iKm in the office next week to coordinate further testing and reassess hemoglobin. On 12/25 the patient reports that she feels significantly better and is up and ambulating in the room without difficulty. She denied dyspnea or dizziness. Color is improved and respirations nonlabored. Breath sounds are clear. Cardiac rhythm regular and abdomen benign. Stable for discharge at this time with plans to follow-up with Dr. Kim next week as noted and Dr. Canas next week. All chronic medications continued with addition of iron. Patient was advised that iron supplementation may aggravate constipation and that stool softeners may be needed. Problems: (1) Anemia Status: Acute Assessment & Plan: Hemoglobin 14.1 on 10/08/15, 12.1 on 09/30/16 with MCV 98.8, and 7.8 with MCV 100.8 earlier today (2) GI bleed Assessment & Plan: Subacute, likely upper (3) Chronic anticoagulation Status: Chronic Assessment & Plan: Xarelto (4) CAD (coronary artery disease) Status: Chronic Assessment & Plan: +stent (5) GERD (gastroesophageal reflux disease) Status: Chronic Assessment & Plan: Symptomatic (6) Hypertension Status: Chronic (7) History of pulmonary embolus (PE) Status: Chronic Assessment & Plan: Patient reports Cr filter placed in past (8) History of DVT (deep vein thrombosis) Status: Resolved Assessment & Plan: Recurrent (9) CKD (chronic kidney disease), stage III Assessment & Plan: Attributed to hypertensive nephrosclerosis per records; creatinine 1.35 on 09/30/16 (10) Bilateral breast cancer Status: Resolved Assessment & Plan: Bilateral mastectomy in 2016 (11) Presence of combination internal cardiac defibrillator (ICD) and pacemaker Status: Chronic (12) History of sick sinus syndrome Status: Chronic (13) COPD (chronic obstructive pulmonary disease) Status: Chronic (14) Hypothyroidism Status: Chronic (15) Obesity (BMI 30-39.9) Status: Chronic Code Status Full Code Home Meds Active Scripts Ferrous Sulfate (Ferrous Sulfate) 325 Mg Tablet, 1 TAB PO WB for Iron deficiency anemia, #100 TAB BEST WITH FOOD. Prov:FADIA LUJAN MD 12/25/16 Reported Medications Spironolactone (Spironolactone) 25 Mg Tablet, 25 MG PO BID, TAB 12/24/16 Nitroglycerin (Nitrostat) 0.4 Mg Tablet, 1 TAB SL PRN, TAB 1 TAB Q 5 MIN PRN, NOT TO EXCEED 3 DOESES IN 15 MINUTES 09/01/16 Cholecalciferol (Vitamin D3) (Vitamin D-400) 400 Unit Tablet, 1 TAB PO BID 09/01/16 Calcium Citrate (Calcium Citrate) 200 Mg Tablet, 600 MG PO BID 09/01/16 Rivaroxaban (Xarelto) 20 Mg Tablet, 1 TAB PO 1800 09/01/16 Letrozole (Letrozole) 2.5 Mg Tablet, 1 TAB PO DAILY 09/01/16 Sacubitril/Valsartan (Entresto 24 mg-26 mg Tablet) 1 Each Tablet, 1 TAB PO BID 09/01/16 Digoxin (Digox) 125 Mcg Tablet, 1 TAB PO DAILY 09/01/16 Acetaminophen (Tylenol Extra Strength) 500 Mg Tablet, 1-2 TAB PO Q6H Y for PAIN , TAB 12/18/15 Allopurinol (Allopurinol) 300 Mg Tablet, 300 MG PO HS 11/16/15 Levothyroxine Sodium (Levothyroxine Sodium) 75 Mcg Tablet, 75 MCG PO 0600 11/16/15 Latanoprost (Latanoprost) 2.5 Ml Drops, 1 DROP BOTH EYES HS 11/16/15 Bumetanide (Bumetanide) 2 Mg Tablet, 1 MG PO DAILY 11/16/15 Triamcinolone (Triamcinolone Acetonide) 15 Applic/15 G Cr, 1 APPLIC TOP BID 11/16/15 Metoprolol Tartrate (Metoprolol Tartrate) 25 Mg Tablet, 25 MG PO BID 11/16/15 Omeprazole (Prilosec) 40 Mg Capsule.dr, 40 MG PO DAILY 05/19/10 Amitriptyline Hcl (Amitriptyline Hcl) 50 Mg Tablet, 50 MG PO HS 05/19/10 Face to Face Encounter I met with patient on the day of dismissal and discussed follow up appointments , medications, and safety plan. Discharge Disposition home Copies To 1: ENDY KIM MD; VIKY CANAS DO Documentation Requirements Chronic Kidney Disease Stage of CKD: Stage 3 GFR 30-59 Anemia Anemia Etiology: Blood Loss (probable, subacute) Anemia Acuity: Unable to Determine BMI Low or High Assoc. dx for low or high BMI: Severe Obesity 35-39.9 FADIA LUJAN MD December 25, 2016 16:32
--- NOTE | 2016-12-25 16:45 | NUR ---
DISCHARGE PATIENT DISCHARGED TO HOME AT THIS TIME VIA WHEELCHAIR, ACCOMPANIED BY SON. DISCHARGE INSTRUCTIONS DISCUSSED WITH PATIENT WHO VOICED UNDERSTANDING. INSTRUCTIONS SENT HOME WITH PATIENT ALONG WITH PRESCRIPTION.
--- NOTE | 2016-12-25 17:31 | OPNOTEF ---
DATE OF OPERATION 12/25/2016 PREOPERATIVE DIAGNOSES 1. Anemia. 2. History of black stools of 4 days' duration last week. 3. Upper abdominal pain. 4. Gastroesophageal reflux disease. POSTOPERATIVE DIAGNOSES 1. Anemia. 2. History of black stools of 4 days' duration last week. 3. Upper abdominal pain. 4. Gastroesophageal reflux disease. OPERATION Esophagogastroduodenoscopy. SURGEON Dr. Debbie LÓPEZ [facility]. ASA Class 4 FINDINGS Mucosa was normal throughout the esophagus. There was no distal esophagitis. There were no esophageal erosions or ulcers. There were no Kruger's esophagus changes at the esophagus. Gastric mucosa also appeared normal. There was no gastritis. There were no gastric erosions or ulcers. Duodenal mucosa appeared normal. There was no duodenitis. There were no duodenal erosions or ulcers. No bright red blood or old blood was seen anywhere at the upper gastrointestinal tract at esophagogastroduodenoscopy today. No source for bleeding which would lead to anemia or black stools was found at the upper gastrointestinal tract today. DESCRIPTION OF OPERATION The patient was brought to the endoscopy room. The patient was placed on a cart in the endoscopy room. The patient was placed in left lateral recumbent position on the cart. The patient was premedicated with intravenous sedation medication administered by the nurse compressor station chief engineer. The Olympus upper GI endoscope was used. The upper GI endoscope was introduced into the esophagus. The upper GI endoscope was advanced down through the esophagus and stomach into the duodenum. The upper GI endoscope was then withdrawn from the duodenum back into the stomach. The upper GI endoscope was retroflexed and the gastroesophageal junction was viewed from below. The upper GI endoscope was straightened out. Stomach was examined further. The upper GI endoscope was then withdrawn out through the stomach and esophagus and removed from the patient. Findings throughout the procedure were as described above. The patient did continue to receive intravenous sedation medication administered by the nurse compressor station chief engineer throughout the operation. The patient did tolerate the operation well. ANA ROSA
--- OUTSIDE RECORDS SUMMARY | 2016-12-29 14:01 | XMS REPORT | Continuity of Care Document ---
Author Author [facility] Organization [facility] Address Unknown Phone Unavailable Allergies Active Description [...] Status Pt. Type Provider Facility Loc./Unit Complaint [id number] 10/27/2013 11:30:00 2013 11:30:00 Art Cyr DO [facility]
--- OUTSIDE RECORDS SUMMARY | 2016-12-29 14:01 | XMS REPORT | Continuity of Care Document ---
Author Author [facility] Organization [facility] Address Unknown Phone Unavailable Support Name Relationship Address Phone FADIA LUJAN MD Caregiver [address] [place] [address] Unavailable FADIA LUJAN MD Caregiver [address] [place] [address] Unavailable VIKY OSEGUERA DO Caregiver [address] [place] [address] [place] [address] Unavailable ISRRAEL ZUNIGA Next Of Kin Unknown [phone] CP Insurance Providers Guarantor Kim Zuniga Address [address] [phone] Email DENIED 16 Payer Medicare Policy Number [id number] Subscriber's Name Kim Zuniga Relationship 18 Self Effective Date 04 Payer Other A Insurance Policy Number [id number] Subscriber's Name Kim Zuniga Relationship 18 Self Advance Directives Directive Response Recorded Date/Time Ordered Resuscitation Status Full Code 12/24/16 12:50pm Resuscitation Documents on File No 12/24/16 1:08pm DPOA for Healthcare Only Yes 12/24/16 1:38pm Living Will No 12/24/16 1:08pm Problems Active Problems Medical Problem Onset Date Status Anemia Unknown Acute Bilateral breast cancer Unknown Resolved CAD (coronary artery disease) Unknown Chronic CKD (chronic kidney disease), stage III Unknown COPD (chronic obstructive pulmonary disease) Unknown Chronic Chronic anticoagulation Unknown Chronic GERD (gastroesophageal reflux disease) Unknown Chronic GI bleed Unknown History of DVT (deep vein thrombosis) Unknown Resolved History of pulmonary embolus (PE) Unknown Chronic History of sick sinus syndrome Unknown Chronic Hypertension Unknown Chronic Hypothyroidism Unknown Chronic Obesity (BMI 30-39.9) Unknown Chronic Presence of combination internal cardiac [...] Mcg Tablet 1 Tab Oral Daily 09/01/16 Ferrous Sulfate 325 Mg Tablet 1 Tab Oral Give With Breakfast for Iron Deficiency Anemia 100 Tablet BEST WITH FOOD. 12/25/16 Latanoprost 2.5 Ml Drops 1 Drop Both [...] 1 Tab Oral Twice A Day 09/01/16 Spironolactone 25 Mg Tablet 25 Mg Oral Twice A Day 12/24/16 Triamcinolone (Triamcinolone Acetonide) 15 Applic/15 G Cr [...] 1,000 Mg Capsule, Daily 12/23/08 Discontinued Ipratropium [place] (Atrovent Hfa) 12.9 Gm Aer.w.adap, Every 6 [...] Problem Response Recorded Date/Time Onset Date Status Reason for Hospitalization Anemia 12/25/2016 3:16pm Not Applicable Not Applicable Hx Substance Use No 10/30/2016 8:44am Not Applicable Not Applicable Hx Alcohol Use No 10/30/2016 8:44am Not Applicable Not Applicable Has the pt used tobacco in the last 12 months No 12/24/2016 1:09pm Not Applicable Not Applicable Tobacco Usage none 11/16/2015 11:21am Not Applicable Not Applicable Query Response Start Date Stop Date Smoking Status Never smoker Hospital Discharge Instructions Instructions: Care Instructions: I was in the hospital because (patient own words): LOW BLOOD LEVELS Discharge Diet: regular diet Discharge Activity: Activity as tolerated Follow Up Appointments: Please schedule follow-up appointment with Dr. Kim for next week Follow-up with Dr. Vila on Sunday, January 01, 2017 at 3:00pm Follow up with Dr. Oseguera as needed Follow-up with Dr. oseguera on Thursday, December 29, 2016 at 2:30pm Pending Lab / Results: No Pending Lab Patient Instructions: Take Iron daily as directed Resume all other normal medications including a blood thinners Follow-up with Dr. Kim as recommended to schedule outpatient colonoscopy Expected Signs/Symptoms: May have dark colored stools from iron Notify Physician If: Bleeding from stools or emesis. Lightheadedness, or weakness, chest pain or shortness of breath During Business Hours:: Please call the physician's office After Business Hours:: Please call [phone] and have the certified solid waste facility operator page the physician. Pain Management/Treatment: Tylenol as needed for pain Wound/Incision Care: None Condition at time of discharge: Good Plan of Care Discharge Date 12/25/16 4:45pm Disposition 01 DISCHARGED HOME, SELF-CARE Instructions/Education Provided Iron Deficiency Anemia (DC) Prescriptions See Medication Section Care Plan and Goals See Discharge Instructions Section Functional Status Query Response Date Recorded Mobility Status Ambulatory w/assist December 24, 2016 1:00pm Assistive Devices Cane December 24, 2016 1:00pm Activity Limitations None December 24, 2016 1:00pm Feeding Ability Independent December 24, 2016 1:00pm Toileting Ability Independent December 24, 2016 1:00pm Grooming Ability Independent December 24, 2016 1:00pm Dressing Ability Independent December 24, 2016 1:00pm Driving Ability Independent December 24, 2016 1:00pm Housework Ability Independent December 24, 2016 1:00pm Meal Preparation Ability Independent December 24, 2016 1:00pm Stair Climbing Ability Independent December 24, 2016 1:00pm Ability to complete ADL's impeded by No change December 24, 2016 1:08pm Cognitive/Perceptual Impairments Impaired hearing December 24, 2016 1:00pm Visual Assistive Devices Glasses December 24, 2016 1:00pm Allergies, Adverse Reactions, Alerts Allergen Type Severity Reaction Status Last Updated Codeine Allergy Severe COULDN'T BREATH,HEART RACING Active 10/30/16 Immunizations Query Response on File Recorded Date/Time Hx Influenza Vaccination Y JUL 2016 12/24/16 1:09pm Hx Pneumococcal Vaccination Y fall12/24/16 1:09pm Hx Tetanus, Diptheria, Pertussis Y MORE THAN 5 YRS. AGO 12/22/08 5:47pm Hx Influenza Vaccination Y JUL 2016 12/24/16 1:09pm Hx Tetanus, Diptheria, Pertussis Y MORE THAN 5 YRS. AGO 12/22/08 5:47pm Influenza Vaccine Hx SEP 2015 12/25/16 12:00pm Vital Signs Acute Vital Signs Vital Response Date/Time Temperature (Fahrenheit) 98.4 deg F (96.8 - 99.1) 12/25/2016 4:00pm Temperature (Calculated Celsius) 36.85836 degrees C (36.0 - 37.3) 12/25/2016 4:00pm Temperature Source Oral 12/25/2016 3:41pm Pulse Rate (adult) 79 bpm (60 - 100) 12/25/2016 4:00pm Respiratory Rate 16 breaths/min (10 - 20) 12/25/2016 4:00pm O2 Sat by Pulse Oximetry 93 % (90 - 100) 12/25/2016 4:00pm Oxygen Delivery Method Room Air 12/25/2016 3:41pm Oxygen Delivery Method Room Air 12/25/2016 4:00pm Oxygen Flow Rate 5.00 L/min 12/25/2016 12:11pm Blood Pressure 114/69 mm Hg 12/25/2016 4:00pm Blood Pressure Source Automatic Cuff 12/25/2016 4:00pm Height (Feet) 5 feet 12/24/2016 1:38pm Height (Inches) 3.00 inches 12/24/2016 1:38pm Weight (Kilograms) 101.000 kg 12/25/2016 7:45am Body Mass Index (BMI) 39.2 12/24/2016 1:08pm Results Laboratory Results Test Name Result Units Flags Reference Collection Date/Time Result Date/ Time Comments Total Bilirubin 0.60 MG/DL 0.20-1.30 10/30/2016 8:09am 10/30/2016 8: 25am Alkaline Phosphatase 58 U/L 38-126 10/30/2016 8:09am 10/30/2016 8:25am Total Protein 8.3 G/DL H 6.3-8.2 10/30/2016 8:09am 10/30/2016 8:25am Albumin 4.4 G/DL 3.5-5.0 10/30/2016 8:0910/30/2016 8:25am Globulin 3.9 G/DL H 2.4-3.6 10/30/2016 8:0910/30/2016 8:25am Albumin/Globulin Ratio 1.1 RATIO 1.1-2.2 10/30/2016 8:09am 10/30/2016 8 :25am Aspartate Amino Transf (AST/SGOT) 25 U/L 14-36 10/30/2016 8:09am 2016 8:25am Alanine Aminotransferase (ALT/SGPT) 23 U/L 9-52 10/30/2016 8:09am 10/30 8:25am White Blood Count 11.5 T/MM3 H 4.5-11.0 12/25/2016 4:45am 12/25/2016 6: 13am Red Blood Count 2.95 M/MM3 L 4.00-5.20 12/25/2016 4:45am 12/25/2016 6: 13am Hemoglobin 8.5 GM/DL L 12-16 12/25/2016 4:45am 12/25/2016 6:13am Hematocrit 28.8 % L 36-46 12/25/2016 4:45am 12/25/2016 6:13am Mean Corpuscular Volume 97.6 UM3 80-100 12/25/2016 4:45am 12/25/2016 6: 13am Mean Corpuscular Hemoglobin 28.8 UUG 26-34 12/25/2016 4:45am 2016 6:13am Mean Corpuscular Hemoglobin Concent 29.5 GM/DL L 31-37 12/25/2016 4:4512/25/2016 6:13am RDW Standard Deviation 59.4 FL H 36.9-50.2 12/25/2016 4:4512/25/2016 6:13am Platelet Count 320 T/MM3 130-400 12/25/2016 4:4512/25/2016 6:13am Mean Platelet Volume 10.0 UM3 9.4-12.4 12/25/2016 4:4512/25/2016 6: 13am Neutrophils (%) (Auto) 71.3 % H 33-66 12/25/2016 4:45am 12/25/2016 6: 13am Lymphocytes (%) (Auto) 18.6 % L 23-45 12/25/2016 4:4512/25/2016 6: 13am Monocytes (%) (Auto) 7.7 % 0-9.0 12/25/2016 4:4512/25/2016 6:13am Eosinophils (%) (Auto) 1.8 % 0-4 12/25/2016 4:4512/25/2016 6:13am Basophils (%) (Auto) 0.3 % 0-2 12/25/2016 4:4512/25/2016 6:13am Immature Granulocyte % (Auto) 0.3 % 0.0-0.5 12/25/2016 4:45am 2016 6:13am Absolute Neutrophils (auto) 8.2 T/MM3 H 1.8-7.7 12/25/2016 4:45am 2016 6:13am Absolute Lymphocytes (auto) 2.1 T/MM3 1-4.8 12/25/2016 4:45am 2016 6:13am Absolute Monocytes (auto) 0.9 T/MM3 H 0-0.8 12/25/2016 4:45am 2016 6:13am Absolute Eosinophils (auto) 0.2 T/MM3 0-0.5 12/25/2016 4:45am 2016 6:13am Absolute Basophils (auto) 0.0 T/MM3 0-0.2 12/25/2016 4:45am 12/25/2016 6:13am Absolute Immature Granulocyte (auto 0.03 T/MM3 0.00-0.03 12/25/2016 4: 45am 12/25/2016 6:13am Prothromb Time International Ratio 1.45 H 0.77-1.03 12/24/2016 1:07pm 12/24/2016 1:23pm THERAPUTIC RANGE=2.00-3.00 FOR ANTI-THROMBOSIS THERAPUTIC RANGE=2.50-3.50 FOR IMPLANTED VALVE Icterus Index < 2 0-7 12/24/2016 1:07pm 12/24/2016 1:28pm Chemistry Specimen Hemolysis < 15 0-25 12/24/2016 1:07pm 12/24/2016 1 :28pm 0-25: Specimen Exhibited No Hemolysis. Turbidity < 20 0-20 12/24/2016 1:07pm 12/24/2016 1:28pm Sodium Level 146 MEQ/L H 134-144 12/24/2016 1:07pm 12/24/2016 1:28pm Potassium Level 4.4 MEQ/L 3.6-5 12/24/2016 1:07pm 12/24/2016 1:28pm Chloride Level 102 MEQ/L 98-107 12/24/2016 1:07pm 12/24/2016 1:28pm Carbon Dioxide Level 30 MEQ/L 22-30 12/24/2016 1:07pm 12/24/2016 1: 28pm Anion Gap 14 MEQ/L 5-15 12/24/2016 1:07pm 12/24/2016 1:28pm Blood Urea Nitrogen 35.0 MG/DL H 7-17 12/24/2016 1:07pm 12/24/2016 1: 28pm Creatinine 1.4 MG/DL H 0.7-1.2 12/24/2016 1:07pm 12/24/2016 1:28pm BUN/Creatinine Ratio 25 RATIO 6-26 12/24/2016 1:07pm 12/24/2016 1:28pm Glomerular Filtration Rate Calc 36 12/24/2016 1:07pm 12/24/2016 1: 28pm Glucose Level 152 MG/DL H 65-110 12/24/2016 1:07pm 12/24/2016 1:28pm Calculated Osmolality 292 MOSM/KG H 261-280 12/24/2016 1:07pm 2016 1:28pm Calcium Level 10.1 MG/DL 8.4-10.2 12/24/2016 1:07pm 12/24/2016 1:28pm Iron Level 26 UG/DL L 37-170 12/24/2016 1:07pm 12/25/2016 3:44am Total Iron Binding Capacity 428 UG/DL 261-497 12/24/2016 1:07pm 2016 1:19am Percent Iron Saturation 6 % L 9-55 12/24/2016 1:07pm 12/25/2016 3:44am Ferritin 18.7 NG/ML 11-264 12/24/2016 1:07pm 12/25/2016 4:21am Vitamin B12 Level 422 PG/ML 239-931 12/24/2016 1:07pm 12/25/2016 4: 35am Name: KIM ZUNIGA Unit #: [id number] : 1940 Sex: F DISCHARGE SUMMARY Admit Date: 12/24/16 Report #: [id number] [facility] General Date Date DATE: 12/25/16 TIME: 16:22 Attending Physician Fadia Lujan MD Admitting Physician Fadia Lujan MD Consulting Physician Endy Kim MD Admitting Diagnosis symptomatic anemia Discharge Diagnosis 1. Iron deficiency anemia 2. History DVT/PE 3. CAD 4. COPD 5. History of breast cancer Procedures EGD on 12/25 with no pathology identified Laboratory Laboratory Tests Test 12/24/16 13:06 12/24/16 13:07 12/24/16 18:26 12/25/16 04:45 White Blood Count 11.9T/MM3 (4.5-11.0) 11.5T/MM3 (4.5-11.0) Red Blood Count 2.71M/MM3 (4.00-5.20) 2.95M/MM3 (4.00-5.20) Hemoglobin 8.1GM/DL (12-16) 8.5GM/DL (12-16) 8.5GM/DL (12-16) Hematocrit 27.3% (36-46) 28.8% (36-46) Mean Corpuscular Volume 100.7UM3 (80-100) 97.6UM3 (80-100) Mean Corpuscular Hemoglobin 29.9UUG (26-34) 28.8UUG (26-34) Mean Corpuscular Hemoglobin Concent 29.7GM/DL (31-37) 29.5GM/DL (31-37) RDW Standard Deviation 56.9FL (36.9-50.2) 59.4FL (36.9-50.2) Platelet Count 332T/MM3 (130-400) 320T/MM3 (130-400) Mean Platelet Volume 9.2UM3 (9.4-12.4) 10.0UM3 (9.4-12.4) Immature Granulocyte % (Auto) 0.5% (0.0-0.5) 0.3% (0.0-0.5) Neutrophils (%) (Auto) 75.8% (33-66) 71.3% (33-66) Lymphocytes (%) (Auto) 16.8% (23-45) 18.6% (23-45) Monocytes (%) (Auto) 5.9% (0-9.0) 7.7% (0-9.0) Eosinophils (%) (Auto) 0.7% (0-4) 1.8% (0-4) Basophils (%) (Auto) 0.3% (0-2) 0.3% (0-2) Absolute Immature Granulocyte (auto 0.06T/MM3 (0.00-0.03) 0.03T/MM3 (0.00-0.03) Absolute Neutrophils (auto) 9.0T/MM3 (1.8-7.7) 8.2T/MM3 (1.8-7.7) Absolute Lymphocytes (auto) 2.0T/MM3 (1-4.8) 2.1T/MM3 (1-4.8) Absolute Monocytes (auto) 0.7T/MM3 (0-0.8) 0.9T/MM3 (0-0.8) Absolute Eosinophils (auto) 0.1T/MM3 (0-0.5) 0.2T/MM3 (0-0.5) Absolute Basophils (auto) 0.0T/MM3 (0-0.2) 0.0T/MM3 (0-0.2) Prothromb Time International Ratio 1.45 (0.77-1.03) Turbidity < 20 (0-20) Sodium Level 146MEQ/L (134-144) Potassium Level 4.4MEQ/L (3.6-5) Chloride Level 102MEQ/L (98-107) Carbon Dioxide Level 30MEQ/L (22-30) Anion Gap 14MEQ/L (5-15) Blood Urea Nitrogen 35.0MG/DL (7-17) Creatinine 1.4MG/DL (0.7-1.2) Glomerular Filtration Rate Calc 36 BUN/Creatinine Ratio 25RATIO (6-26) Glucose Level 152MG/DL (65-110) Calculated Osmolality 292MOSM/KG (261-280) Calcium Level 10.1MG/DL (8.4-10.2) Iron Level 26UG/DL (37-170) Total Iron Binding Capacity 428UG/DL (261-497) Percent Iron Saturation 6% (9-55) Ferritin 18.7NG/ML (11-264) Icterus Index < 2 (0-7) Vitamin B12 Level 422PG/ML (239-931) Chemistry Specimen Hemolysis < 15 (0-25) Outpatient hemoglobin on date of admission 7.8 in the office. History of Present Illness Mrs Zuniga is a pleasant 76-year-old female who presented to see her primary care provider today for evaluation of dizziness and reported anemia. She reported that she saw her dough sheeter last week, Dr.Jesus Charmaine Mast at [facility] cardiology group. Routine labs revealed anemia with a hemoglobin of 7.6. She was instructed to follow with her primary care provider. Today she did present to via [facility] clinic and saw her PCP Dr. Oseguera. A recheck of hemoglobin did reveal continued anemia with a hemoglobin of 7.8. She reported having black tarry stools last week for approximately 4 days. She is chronically on Xarelto for history of pulmonary emboli and DVT. Given the concern of symptomatically anemia, accompanied with her chronic comorbidities as well as chronic anticoagulation. The hospitalist services were contacted and accepted patient for direct admission as an outpatient for further evaluation and treatment. This point, it is expected that her stay will be less than 2 overnights. We did discuss advanced directives and patient does verify she wishes to be a full code Did review lab history, On 10/30/16, hemoglobin was 11.2 preoperatively. Outpatient lab on 12/19/16 was 7.6. Today at [facility] Hgb was 7.8. Hospital Course Mrs. Zuniga was hospitalized on observation basis for symptomatic anemia. She described dark stools for several days a week prior to admission with subsequent normalization in conjunction with dyspeptic symptoms and history of a hiatal hernia. 1 unit of blood was transfused on the date of admission with hemoglobin improving to 8.5 and significant improvement in clinical symptoms. Additional studies confirmed presence of iron deficiency for which oral supplementation was initiated. She was seen in consultation by Dr. Kim and underwent EGD on the morning of after Xarelto was held the prior day. No peptic disease or gastritis/duodenitis was identified to explain anemia. Colonoscopy will be scheduled in the near future and the patient is asked to see Dr. Kim in the office next week to coordinate further testing and reassess hemoglobin. On 12/25 the patient reports that she feels significantly better and is up and ambulating in the room without difficulty. She denied dyspnea or dizziness. Color is improved and respirations nonlabored. Breath sounds are clear. Cardiac rhythm regular and abdomen benign. Stable for discharge at this time with plans to follow-up with Dr. Kim next week as noted and Dr. Oseguera next week. All chronic medications continued with addition of iron. Patient was advised that iron supplementation may aggravate constipation and that stool softeners may be needed. Problems: (1) Anemia Status: Acute Assessment & Plan: Hemoglobin 14.1 on 10/08/15, 12.1 on 09/30/16 with MCV 98.8, and 7.8 with MCV 100.8 earlier today (2) GI bleed Assessment & Plan: Subacute, likely upper (3) Chronic anticoagulation Status: Chronic Assessment & Plan: Xarelto (4) CAD (coronary artery disease) Status: Chronic Assessment & Plan: +stent (5) GERD (gastroesophageal reflux disease) Status: Chronic Assessment & Plan: Symptomatic (6) Hypertension Status: Chronic (7) History of pulmonary embolus (PE) Status: Chronic Assessment & Plan: Patient reports Cr filter placed in past (8) History of DVT (deep vein thrombosis) Status: Resolved Assessment & Plan: Recurrent (9) CKD (chronic kidney disease), stage III Assessment & Plan: Attributed to hypertensive nephrosclerosis per records; creatinine 1.35 on 09/30/16 (10) Bilateral breast cancer Status: Resolved Assessment & Plan: Bilateral mastectomy in 2016 (11) Presence of combination internal cardiac defibrillator (ICD) and pacemaker Status: Chronic (12) History of sick sinus syndrome Status: Chronic (13) COPD (chronic obstructive pulmonary disease) Status: Chronic (14) Hypothyroidism Status: Chronic (15) Obesity (BMI 30-39.9) Status: Chronic Code Status Full Code Home Meds Active Scripts Ferrous Sulfate (Ferrous Sulfate) 325 Mg Tablet, 1 TAB PO WB for Iron deficiency anemia, #100 TAB BEST WITH FOOD. Prov:FADIA LUJAN MD 12/25/16 Reported Medications Spironolactone (Spironolactone) 25 Mg Tablet, 25 MG PO BID, TAB 12/24/16 Nitroglycerin (Nitrostat) 0.4 Mg Tablet, 1 TAB SL PRN, TAB 1 TAB Q 5 MIN PRN, NOT TO EXCEED 3 DOESES IN 15 MINUTES 09/01/16 Cholecalciferol (Vitamin D3) (Vitamin D-400) 400 Unit Tablet, 1 TAB PO BID 09/01/16 Calcium Citrate (Calcium Citrate) 200 Mg Tablet, 600 MG PO BID 09/01/16 Rivaroxaban (Xarelto) 20 Mg Tablet, 1 TAB PO 1800 09/01/16 Letrozole (Letrozole) 2.5 Mg Tablet, 1 TAB PO DAILY 09/01/16 Sacubitril/Valsartan (Entresto 24 mg-26 mg Tablet) 1 Each Tablet, 1 TAB PO BID 09/01/16 Digoxin (Digox) 125 Mcg Tablet, 1 TAB PO DAILY 09/01/16 Acetaminophen (Tylenol Extra Strength) 500 Mg Tablet, 1-2 TAB PO Q6H Y for PAIN , TAB 12/18/15 Allopurinol (Allopurinol) 300 Mg Tablet, 300 MG PO HS 11/16/15 Levothyroxine Sodium (Levothyroxine Sodium) 75 Mcg Tablet, 75 MCG PO 0600 11/16/15 Latanoprost (Latanoprost) 2.5 Ml Drops, 1 DROP BOTH EYES HS 11/16/15 Bumetanide (Bumetanide) 2 Mg Tablet, 1 MG PO DAILY 11/16/15 Triamcinolone (Triamcinolone Acetonide) 15 Applic/15 G Cr, 1 APPLIC TOP BID 11/16/15 Metoprolol Tartrate (Metoprolol Tartrate) 25 Mg Tablet, 25 MG PO BID 11/16/15 Omeprazole (Prilosec) 40 Mg Capsule.dr, 40 MG PO DAILY 05/19/10 Amitriptyline Hcl (Amitriptyline Hcl) 50 Mg Tablet, 50 MG PO HS 05/19/10 Face to Face Encounter I met with patient on the day of dismissal and discussed follow up appointments , medications, and safety plan. Discharge Disposition home Copies To 1: ENDY KIM MD; VIKY OSEGUERA DO Documentation Requirements Chronic Kidney Disease Stage of CKD: Stage 3 GFR 30-59 Anemia Anemia Etiology: Blood Loss (probable, subacute) Anemia Acuity: Unable to Determine BMI Low or High Assoc. dx for low or high BMI: Severe Obesity 35-39.9 FADIA LUJAN MD December 25, 2016 16:32 Procedures Procedure Status Date Provider(s) Carpal tunnel surgery Completed 10/30/16 NAVIN BARDALES MD Incise finger tendon sheath Completed 10/30/16 NAVIN BARDALES MD Routine venipuncture Completed 10/30/16 Comprehen metabolic panel Completed 10/30/16 Complete cbc w/auto diff wbc Completed 10/30/16 [id number] SQ. IN. OR LESS, WITHOUT ADHESIVE BORDER, EACH SOFIA Completed 100968"INJECTION, FENTANYL CITRATE, 0.1 MG" Completed 10/30/16 [id number]"INFUSION, NORMAL SALINE SOLUTION , 1000 CC" Completed 10/30/16 EGD (esophagogastroduodenoscopy) Completed 12/25/16 ENDY KIM MD Encounters Encounter Location Arrival/Admit Date Discharge/Depart Date Attending Provider Discharged Inpatient (obs) [facility] 12/24/16 12:22pm 12/25/16 4 :45pm FADIA LUJAN MD Departed [facility] Day [facility] 10/30/16 7:31am 10/30/16 11 :55am NAVIN BARDALES MD
== END 2016-12-25 16:45 | disposition home or self-care (01) ==
LOC: UNDOADMOB 12:22 → SCU 12:22 → MED 12:22 → UNDODISOB 12-25 16:45 → SCU 12-25 16:45 → EDSTATUS 12-29 13:55
PROVIDERS: ATTEND Internal Medicine
DX: D50.9 Iron deficiency anemia, unspecified (principal); K92.2 Gastrointestinal hemorrhage, unspecified; K21.9 Gastro-esophageal reflux disease without esophagitis; Z79.01 Long term (current) use of anticoagulants; I25.10 Atherosclerotic heart disease of native coronary artery without angina pectoris; J44.9 Chronic obstructive pulmonary disease, unspecified; E03.9 Hypothyroidism, unspecified; I12.9 Hypertensive chronic kidney disease with stage 1 through stage 4 chronic kidney disease, or unspecified chronic kidney disease; N18.3 Chronic kidney disease, stage 3 (moderate); Z95.810 Presence of automatic (implantable) cardiac defibrillator; I49.5 Sick sinus syndrome; Z86.711 Personal history of pulmonary embolism; Z86.718 Personal history of other venous thrombosis and embolism; Z85.3 Personal history of malignant neoplasm of breast; Z90.13 Acquired absence of bilateral breasts and nipples
CPT/HCPCS: 36415; 36430; 43235; 80048; 82607; 82728; 83540; 83550; 85018; 85025; 85610; 86850; 86900; 86901; 86922; 96374; 96376; 97161; 97165; A9270; C9113; G0378; G0379; G8978; G8979; G8980; G8987; G8988; G8989; J2250; J3010; J7030; P9016; 99218

== ENCOUNTER 2017-06-23 17:18 | Inpatient (IN) ==
--- OUTSIDE RECORDS SUMMARY | 2017-06-23 17:45 | External Medical Summary | Referral Summary ---
:1940 Author Organization [facility] Address [address] [place] [address] [place] [address] Care Team Providers Name Role Phone Alfredo Montes Primary Care Physician Encounter VC Date(s): 12/17/15 - 12/17/15 [facility] [address] [place] [address] [place] [address]- Discharge Diagnosis: Bilateral breast cancer Discharge Disposition: 01-Home or Self Care Attending Physician: Eddie Chris MD Admitting Physician: Eddie Chris MD Vital Signs Most recent to oldest [Reference Range]: 1 Temperature Oral [35.8-37.3 degC] 36.2 degC (12/17/15 3:14 PM) Peripheral Pulse Rate [60-100 bpm] 88 bpm (12/17/15 3:14 PM) Blood Pressure [90-140/60-90 mmHg] 140/84 mmHg (12/17/15 3:14 PM) Problem List Condition Effective Dates Status Health Status Informant Angina/Chest Pain(Confirmed) Active Back pain(Confirmed) Active Backache (finding)(Confirmed) Active Benign essential hypertension Active (disorder)(Confirmed) Benign hypertension(Confirmed) Active Blood clots lungs/legs(Confirmed) Active Cardiac pacemaker(Confirmed)1 10/10/14 Active CARDIOMEGALY(Confirmed) Active COPD (CHR AIRWAY OBSTRUCT Active NEC)(Confirmed) COR ATH UNSP VSL NTV/GFT(Confirmed) Active Coronary arteriosclerosis Active (disorder)(Confirmed) Coronary artery disease(Confirmed) Active Depression Disorder, Not Elsewhere Active Classified(Confirmed) DVT (deep venous Active thrombosis)(Confirmed) Gastroesophageal reflux disease Active (disorder)(Confirmed) GERD(Confirmed) Active High cholesterol(Confirmed) Active Hypothyroidism (disorder)(Confirmed) Active Hypothyroidism(Confirmed) Active Irregular heart rhythm(Confirmed) Active Non-toxic multinodular goiter Active (disorder)(Confirmed) Nontoxic multinodular Active goiter(Confirmed) Pedal edema(Confirmed) Active Sick sinus syndrome(Confirmed) Active Sinus node dysfunction Active (disorder)(Confirmed) Thyroid disease/Goiter(Confirmed) Active Diabetes, type 2, unspec(Confirmed) Active UNSPECIFIED CATARACT(Confirmed) Active 1Dr. Jhonatan Portillo placed the pacemaker. I made a copy of the ID card for the chart. Allergies, Adverse Reactions, Alerts Substance Reaction Severity Status codeine Active Medications allopurinol 300 mg oral tablet See Instructions, TAKE 1 TABLET AT BEDTIME, # 90 tabs, 1 Refill(s), Pharmacy: [facility], TAKE 1 TABLET AT BEDTIME Start Date: 11/07/15 Status: Orderedamitriptyline 50 mg oral tablet 50 mg 1 tabs, Oral, Bedtime (once a day), # 90 tabs, 2 Refill(s), Pharmacy: [facility], 1 tabs Oral Bedtime (once a day) Start Date: 11/07/15 Status: Orderedbumetanide 2 mg oral tablet 0.5 tabs, Oral, Daily, # 45 tabs, 2 Refill(s), Pharmacy: [facility], 0.5 tabs Oral Daily Start Date: 08/23/14 Status: Orderedlatanoprost 0.005% ophthalmic solution 1 drops, Eye-Both, Bedtime (once a day), Please send 90 day supply quantity sufficient, # 3 Each, 2 Refill(s), Pharmacy: [facility] Start Date: 11/07/15 Status: Orderedlevothyroxine 75 mcg (0.075 mg) oral tablet 75 mcg 1 tabs, Oral, Daily, # 90 tabs, 2 Refill(s), Pharmacy: [facility], 1 tabs Oral Daily Start Date: 11/07/15 Status: Orderedmetoprolol tartrate 25 mg oral tablet 25 mg 1 tabs, Oral, BID, # 60 tabs, 2 Refill(s), Pharmacy: [facility] Start Date: 11/07/15 Status: Orderedminocycline 100 mg oral capsule 100 mg 1 caps, Oral, BID, # 20 caps, 0 Refill(s) Start Date: 12/06/15 Stop Date: 12/16/15 Status: OrderedNitrostat 0.4 mg sublingual tablet 1 tabs, SubLingual, q5min, as needed for chest pain, not to exceed 3 doses/15 min--if pain persists,seek medical attention, # 8,640 tabs, 1 Refill(s), Pharmacy: [facility], 1 tabs SubLingual q5min,PRN:as needed for chest pain, Instr:not to exceed... Start Date: 08/23/14 Status: OrderedNorco 5 mg-325 mg oral tablet 1 tabs, Oral, q6hr, as needed for pain, # 15 tabs, 0 Refill(s) Start Date: 11/18/15 Status: Orderedomeprazole 40 mg oral delayed release capsule See Instructions, TAKE 1 CAPSULE EVERY DAY, # 90 caps, 1 Refill(s), Pharmacy: [facility], TAKE 1 CAPSULE EVERY DAY Start Date: 11/07/15 Status: Orderedspironolactone 25 mg oral tablet 25 mg 1 tabs, Oral, BID, # 180 tabs, 1 Refill(s), Pharmacy: [facility], 1 tabs Oral BID Start Date: 11/07/15 Status: Orderedtriamcinolone 0.1% topical cream See Instructions, APPLY TO AFFECTED AREA(S) TWICE DAILY, # 90 g, 2 Refill(s), eRx: [facility], APPLY TO AFFECTED AREA(S) TWICE DAILY Start Date: 07/19/15 Status: Orderedtriamcinolone 0.1% topical cream See Instructions, APPLY TO AFFECTED AREA(S) TWICE DAILY, # 90 g, 2 Refill(s), Pharmacy: [facility] Start Date: 11/07/15 Stop Date: 11/06/16 Status: Orderedwarfarin 2 mg oral tablet See Instructions, Take as directed per INR Right now patient on 3 tabs daily 90 day supply, # 270 tabs, 2 Refill(s), Pharmacy: [facility] , Take as directed per INR; Right now patient on 3 tabs daily 90 day supply Start Date: 11/07/15 Status: Ordered Results No data available for this section Immunizations Vaccine Date Refusal Reason influenza virus vaccine, inactivated 08/29/15 influenza virus vaccine, live 10/22/14 influenza virus vaccine, live 05/16/13 pneumococcal 13-valent [...] combination internal cardiac defibrillator and pacemaker [facility]amm[facility]4 1[facility] [id number]. Bryan QUACH - see Conversion [id number]. [place] in [place] - see Conversion Document.4Needs additional Imaging. See scanned document Social History Social History Type Response Smoking Status Never smoker Assessment and Plan Extracted from: Title: Office Visit Note Author: Eddie Chris MD Date: 12/17/15 Assessment/Plan 1.Bilateral breast cancer Ordered: Office Visit Level 4 Est 96872 Plan: Bilateral Mastectomies, Bilateral Axillary [place] Lymph Node Biopsies , Possible Bilateral Axillary Dissections. I did review my prior office note from November 06, 2015. Reviewed her prior pathology reportfrom October 01, 2015 revealinginvasive ductal carcinoma involving both the left breast and right deana st. I did speak with herelectrophysiologist/warehouse order puller by phone previously. I once again went over with the patientmy recommendations and specificallywhat bilateralmastectomies, bilater al sentinel lymph node biopsies,possible bilateralaxillarydissection entailedand its associated risk which included but was not inclusive of bleeding, infection,potential for development of p ostoperative seroma,potential for flap necrosis,potential for injuryto structures within the axilla. Patient understood and was separately scheduled. Patient will need to be off her Coumadin prior to her procedure.
--- OUTSIDE RECORDS SUMMARY | 2017-06-23 17:45 | External Medical Summary | Referral Summary ---
:1940 Author Organization [facility] Address [address] [place] [address] [place] [address] Care Team Providers Name Role Phone Alfredo Montes Primary Care Physician Encounter VC Date(s): 02/04/16 - 02/04/16 [facility], [address] [place] [address] [place] Discharge Diagnosis: Visit for suture removal Discharge Disposition: 01-Home or Self Care Attending Physician: Chapis Wolff APRN Admitting Physician: Chapis Wolff APRN Referring Physician: Alfredo Montes DO Vital Signs Most recent to oldest [Reference Range]: 1 Temperature Tympanic [36.6-38.1 degC] 37 degC (02/04/16 10:03 AM) Problem List Condition Effective [...] BEDTIME, # 90 tabs, 1 Refill(s), Pharmacy: [facility], TAKE 1 TABLET AT BEDTIME Start Date: 11/07/15 Status: Orderedamitriptyline 50 mg oral tablet 50 mg 1 tabs, Oral, Bedtime (once a day), # 90 tabs, 2 Refill(s), Pharmacy: [facility], 1 tabs Oral Bedtime (once a day) Start Date: 11/07/15 Status: Orderedbumetanide 2 mg oral tablet 0.5 tabs, Oral, Daily, # 45 tabs, 2 Refill(s), Pharmacy: [facility], 0.5 tabs Oral Daily Start Date: 08/23/14 Status: Orderedlatanoprost 0.005% ophthalmic solution 1 drops, Eye-Both, Bedtime (once a day), Please send 90 day supply quantity sufficient, # 3 Each, 2 Refill(s), Pharmacy: [facility] Start Date: 11/07/15 Status: Orderedlevothyroxine 75 mcg (0.075 mg) oral tablet 75 mcg 1 tabs, Oral, Daily, # 90 tabs, 2 Refill(s), Pharmacy: [facility], 1 tabs Oral Daily Start Date: 11/07/15 Status: Orderedmetoprolol tartrate 25 mg oral tablet 25 mg 1 tabs, Oral, BID, # 60 tabs, 2 Refill(s), Pharmacy: [facility] Start Date: 11/07/15 Status: Orderedminocycline 100 mg oral capsule 100 mg 1 caps, Oral, BID, # 20 caps, 0 Refill(s) Start Date: 12/06/15 Stop Date: 12/16/15 Status: Orderedminocycline 100 mg oral tablet 100 mg 1 tabs, Oral, BID, 0 Refill(s) Start Date: 02/04/16 Status: OrderedNitrostat 0.4 mg sublingual tablet 1 tabs, SubLingual, q5min, as needed for chest pain, not to exceed 3 doses/15 min--if pain persists,seek medical attention, # 8,640 tabs, 1 Refill(s), Pharmacy: [facility], 1 tabs SubLingual q5min,PRN:as needed for chest pain, Instr:not to exceed... Start Date: 08/23/14 Status: Orderedomeprazole 40 mg oral delayed release capsule See Instructions, TAKE 1 CAPSULE EVERY DAY, # 90 caps, 1 Refill(s), Pharmacy: [facility], TAKE 1 CAPSULE EVERY DAY Start Date: 11/07/15 Status: Orderedspironolactone 25 mg oral tablet 25 mg 1 tabs, Oral, BID, # 180 tabs, 1 Refill(s), Pharmacy: [facility], 1 tabs Oral BID Start Date: 11/07/15 Status: Orderedtriamcinolone 0.1% topical cream See Instructions, APPLY TO AFFECTED AREA(S) TWICE DAILY, # 90 g, 2 Refill(s), eRx: [facility], APPLY TO AFFECTED AREA(S) TWICE DAILY Start Date: 07/19/15 Status: Orderedtriamcinolone 0.1% topical cream See Instructions, APPLY TO AFFECTED AREA(S) TWICE DAILY, # 90 g, 2 Refill(s), Pharmacy: [facility] Start Date: 11/07/15 Stop Date: 11/06/16 Status: Orderedwarfarin 2 mg oral tablet See Instructions, Take as directed per INR Right now patient on 3 tabs daily 90 day supply, # 270 tabs, 2 Refill(s), Pharmacy: [facility] , Take as directed [...] Revision of mastectomy scar1 01/20/16 Bilateral mastectomy2 5/19/16 History of combination internal cardiac 10/09/14 defibrillator and pacemaker3 DM FOOT EXAM 01/20/12 Pacemaker4 01/09/10 Rt inguinal hernia5 2008 Cataract Left 2007 Cataract Right 2006 Adenomatous polyp 2006 Colonoscopy 2006 Knee replacement L 2004 Knee replacement R 2005 BREAST BIOPSY LEFT AND RIGHT 1997 Thyroid Surgery ANKUSH THYROID 1997 HERNIATED DISC L4-5 1995 Appendectomy 1975 gall bladder 1974 History of combination internal cardiac defibrillator and pacemaker Mammogram6 [id number] nods negative on frozen section.Right node with single focus of micrometastatis on permanent sections. Both bresasts Invasive ductal carcinoma, SBR/[place] Grade I3The Gil [id number]. Bryan QUACH - see Conversion Uvambpks2AgAlecia soto [place] - see Conversion Document.6Needs additional Imaging. See scanned document Social History Social History Type Response Smoking Status Never smoker Assessment and Plan Extracted from: Title: Office Visit Note Author: Mariella Chapis L [employer] Date: 02/04/16 Assessment/Plan 1.Visit for suture removal [...] of Dr. Alfredo Montes. Ordered: Postoperative Est 22091
--- OUTSIDE RECORDS SUMMARY | 2017-06-23 17:45 | External Medical Summary | Referral Summary ---
:1940 Author Organization [facility] [place] [address] Care Team Providers Name Role Phone Alfredo Montes Primary Care Physician Encounter VC Date(s): 05/20/16 - 05/20/16 [facility] [place] [address] [place] Discharge Diagnosis: Pre-op exam Discharge Diagnosis: Chronic CHF Discharge Diagnosis: Deep vein thrombosis (DVT) of left lower extremity Discharge Disposition: 01-Home or Self Care Attending Physician: Alfredo Montes DO Admitting Physician: Alfredo Montes DO Vital Signs Most recent to oldest [Reference Range]: 1 Temperature Tympanic [36.6-38.1 degC] 37.0 degC (05/20/16 9:58 AM) Peripheral Pulse Rate [60-100 bpm] 77 bpm (05/20/16 9:58 AM) Blood Pressure [90-140/60-90 mmHg] 110/68 mmHg (05/20/16 9:58 AM) Problem List Condition Effective [...] type 2, unspec(Confirmed) Active UNSPECIFIED CATARACT(Confirmed) Active 1DrAlecia Portillo placed the pacemaker. I made a copy of the ID card for the chart. Allergies, Adverse Reactions, Alerts Substance Reaction Severity Status codeine Active Medications allopurinol 300 mg oral tablet See Instructions, TAKE 1 TABLET AT BEDTIME, # 90 tabs, 1 Refill(s), Pharmacy: [facility], TAKE 1 TABLET AT BEDTIME Start Date: 11/07/15 Status: Orderedamitriptyline 50 mg oral tablet 50 mg 1 tabs, Oral, Bedtime (once a day), # 90 tabs, 2 Refill(s), Pharmacy: [facility], 1 tabs Oral Bedtime (once a day) Start Date: 11/07/15 Status: Orderedbumetanide 2 mg oral tablet 0.5 tabs, Oral, Daily, # 45 tabs, 2 Refill(s), Pharmacy: [facility], 0.5 tabs Oral Daily Start Date: 08/23/14 Status: OrderedCalcium 600+D 2, Oral, Daily, 0 Refill(s) Start Date: 05/20/16 Status: Ordereddigoxin 125 mcg (0.125 mg) oral tablet 125 mcg 1 tabs, Oral, Daily, # 30 tabs, 0 Refill(s) Start Date: 05/20/16 Status: OrderedEntresto 1 tabs, Oral, BID, 0 Refill(s) Start Date: 03/27/16 Status: Orderedlatanoprost 0.005% ophthalmic solution 1 drops, Eye-Both, Bedtime (once a day), Please send 90 day supply quantity sufficient, # 3 Each, 2 Refill(s), Pharmacy: [facility] Start Date: 11/07/15 Status: Orderedletrozole 2.5 mg oral tablet 2.5 mg 1 tabs, Oral, Daily, # 30 tabs, 0 Refill(s) Start Date: 03/27/16 Stop Date: 04/26/16 Status: Orderedlevothyroxine 75 mcg (0.075 mg) oral tablet 75 mcg 1 tabs, Oral, Daily, # 90 tabs, 2 Refill(s), Pharmacy: [facility], 1 tabs Oral Daily Start Date: 11/07/15 Status: OrderedMetoprolol Tartrate 25 mg oral tablet See Instructions, TAKE 1 TABLET TWICE DAILY, # 180 tabs, 2 Refill(s), eRx: [facility], TAKE 1 TABLET TWICE DAILY Start Date: 03/05/16 Status: OrderedNitrostat 0.4 mg sublingual tablet 1 tabs, SubLingual, q5min, as needed for chest pain, not to exceed 3 doses/15 min--if pain persists,seek medical attention, # 8,640 tabs, 1 Refill(s), Pharmacy: [facility], 1 tabs SubLingual q5min,PRN:as needed for chest pain, Instr:not to exceed... Start Date: 08/23/14 Status: Orderedomeprazole 40 mg oral delayed release capsule See Instructions, TAKE 1 CAPSULE EVERY DAY, # 90 caps, 1 Refill(s), Pharmacy: [facility], TAKE 1 CAPSULE EVERY DAY Start Date: 11/07/15 Status: OrderedPreserVision Oral, Daily, 0 Refill(s) Start Date: 05/20/16 Status: Orderedspironolactone 25 mg oral tablet 25 mg 1 tabs, Oral, BID, # 180 tabs, 1 Refill(s), Pharmacy: [facility], 1 tabs Oral BID Start Date: 11/07/15 Status: Orderedtriamcinolone 0.1% topical cream See Instructions, APPLY TO AFFECTED AREA(S) TWICE DAILY, # 90 g, 2 Refill(s), eRx: [facility], APPLY TO AFFECTED AREA(S) TWICE DAILY Start Date: 07/19/15 Status: Orderedtriamcinolone 0.1% topical cream See Instructions, APPLY TO AFFECTED AREA(S) TWICE DAILY, # 90 g, 2 Refill(s), Pharmacy: [facility] Start Date: 11/07/15 Stop Date: 11/06/16 Status: OrderedVitamin D with Minerals oral tablet See Instructions, VITAMIN D3 400 IU 2 DAILY, 0 Refill(s) Start Date: 05/20/16 Status: OrderedXarelto 20 mg oral tablet 20 mg 1 [...] combination internal cardiac defibrillator and pacemaker Mammogram6 [id number] nods negative on frozen section.Right node with single focus of micrometastatis on permanent sections. Both bresasts Invasive ductal carcinoma, SBR/[place] Grade I3[facility] [id number]. Bryan QUACH - see Conversion [id number] Amato in [place] - see Conversion Document.6Needs additional Imaging. See scanned document Social History Social History Type Response Smoking Status Never smoker Assessment and Plan Extracted from: Title: Office Visit Note Author: Alfredo Montes DO Date: 05/20/16 Assessment/Plan 1.Pre-op exam 1. Orders from Dr. Pelayo reviewed. 2. We will send her to [facility] and requested cardiac clearance given her history of CHF. 3. Following report from [facility] we will order lab work to consist of CBC and complete metabolic profile. 4. Once the above information has been gathered we should be able to clear her for surgery. Ordered: CBC w/ Differential Comprehensive Metabolic Panel Office Visit Level 5 Est 47998 2.Chronic CHF 1. Continue with recommendations as per [facility]. 2. Continue current medications 3. Low-salt diet recommended Ordered: Office Visit Level 5 Est 22002 3.Deep vein thrombosis (DVT) of left lower extremity 1. Continue with Xarelto 20 mg daily. Since this is her second DVT, I anticipate that she will be in this medication long-term. Ordered: Office Visit Level 5 Est 63157 Needs flu shot Flu vaccination given today.
--- OUTSIDE RECORDS SUMMARY | 2017-06-23 17:45 | External Medical Summary | Referral Summary ---
:1940 Author Organization [facility] [place] [address] Care Team Providers Name Role Phone Alfredo Montes Primary Care Physician Encounter VC Date(s): 06/09/16 - 06/09/16 [facility] [place] [address] [place] Discharge Diagnosis: Leg edema Discharge Diagnosis: Mass of left axilla Discharge Diagnosis: Chronic CHF Discharge Disposition: 01-Home or Self Care Attending Physician: Alfredo Montes DO Admitting Physician: Alfredo Montes DO Vital Signs Most recent to oldest [Reference Range]: 1 Temperature Tympanic [36.6-38.1 degC] 36.9 degC (06/09/16 3:16 PM) Peripheral Pulse Rate [60-100 bpm] 83 bpm (06/09/16 3:16 PM) Blood Pressure [90-140/60-90 mmHg] 119/53 mmHg (06/09/16 3:16 PM) Problem List Condition Effective [...] days, # 90 tabs, 3 Refill(s), Pharmacy: [facility], 1 tabs Oral Daily,x90 days Start Date: 06/09/16 Stop Date: 06/04/17 Status: Orderedamitriptyline 50 mg oral tablet 50 mg 1 tabs, Oral, Bedtime (once a day), # 90 tabs, 2 Refill(s), Pharmacy: [facility], 1 tabs Oral Bedtime (once a day),x90 days Start Date: 06/09/16 Stop Date: 03/06/17 Status: Orderedbumetanide 1 mg oral tablet 1 mg 1 tabs, Oral, BID, # 180 tabs, 4 Refill(s), Pharmacy: [facility] [id number], 1 tabs Oral BID,x90 days Start Date: 06/09/16 Stop Date: 09/02/17 Status: OrderedCalcium 600+D 2, Oral, Daily, 0 Refill(s) Start Date: 05/20/16 Status: Ordereddigoxin 125 mcg (0.125 mg) oral tablet 250 mcg 2 tabs, Oral, Daily, # 180 tabs, 1 Refill(s), Pharmacy: [facility], 2 tabs Oral Daily,x90 days Start Date: 06/09/16 Stop Date: 12/06/16 Status: OrderedEntresto 24 mg-26 mg oral tablet 1 tabs, Oral, BID, # 30 tabs, 0 Refill(s), other reason (Rx) Start Date: 06/09/16 Status: Orderedlatanoprost 0.005% ophthalmic solution 1 drops, Eye-Both, Bedtime (once a day), Please send 90 day supply quantity sufficient, # 3 Each, 2 Refill(s), Pharmacy: [facility] Start Date: 06/09/16 Status: Orderedletrozole 2.5 mg oral tablet 2.5 mg 1 tabs, Oral, Daily, # 30 tabs, 0 Refill(s) Start Date: 03/27/16 Stop Date: 04/26/16 Status: Orderedlevothyroxine 75 mcg (0.075 mg) oral tablet 75 mcg 1 tabs, Oral, Daily, # 90 tabs, 2 Refill(s), Pharmacy: [facility], 1 tabs Oral Daily Start Date: 06/09/16 Status: OrderedMetoprolol Tartrate 25 mg oral tablet 25 mg 1 tabs, Oral, BID, # 180 tabs, 3 Refill(s), Pharmacy: [facility], 1 tabs Oral BID,x90 days Start Date: 06/09/16 Stop Date: 06/04/17 Status: OrderedNitrostat 0.4 mg sublingual tablet 1 tabs, SubLingual, q5min, as needed for chest pain, not to exceed 3 doses/15 min--if pain persists,seek medical attention, # 8,640 tabs, 1 Refill(s), Pharmacy: [facility], 1 tabs SubLingual q5min,PRN:as needed for chest pain, Instr:not to exceed... Start Date: 08/23/14 Status: Orderedomeprazole 40 mg oral delayed release capsule 40 mg 1 caps, Oral, Daily, X 90 days, # 90 caps, 3 Refill(s), Pharmacy: [facility], 1 caps Oral Daily,x90 days Start Date: 06/09/16 Stop Date: 06/04/17 Status: OrderedPreserVision Oral, Daily, 0 Refill(s) Start Date: 05/20/16 Status: Orderedspironolactone 25 mg oral tablet 25 mg 1 tabs, Oral, BID, # 180 tabs, 3 Refill(s), Pharmacy: [facility], 1 tabs Oral BID,x90 days Start Date: 06/09/16 Stop Date: 06/04/17 Status: Orderedtriamcinolone 0.1% topical cream See Instructions, APPLY TO AFFECTED AREA(S) TWICE DAILY, # 90 g, 2 Refill(s), eRx: [facility], APPLY TO AFFECTED AREA(S) TWICE DAILY Start Date: 07/19/15 Status: Orderedtriamcinolone 0.1% topical cream See Instructions, APPLY TO AFFECTED AREA(S) TWICE DAILY, # 90 g, 2 Refill(s), Pharmacy: [facility] Start Date: 11/07/15 [...] combination internal cardiac defibrillator and pacemaker Mammogram6 [id number] nods negative on frozen section.Right node with single focus of micrometastatis on permanent sections. Both bresasts Invasive ductal carcinoma, SBR/[place] Grade I3The Gil [id number]. Bryan QUACH - see Conversion [id number] Amato in [place] - see Conversion Document.6Needs additional Imaging. See [...] BID, # 180 tabs, 4 Refill(s), Pharmacy: [id number], 1 tabs Oral BID,x90 days Leg edema 1. Edema is well controlled 2. Continue with Bumex as per special needs librarian's recommendation 3. Follow-up if worsening presentation Ordered: bumetanide, 1 mg 1 tabs, Oral, BID, # 180 tabs, 4 Refill(s), Pharmacy: [facility] [id number], 1 tabs Oral BID,x90 days Office Visit Level 4 Est 07453 Mass of left axilla 1. CT of the chest was reviewed. 2. We will discuss this with Dr. Love tomorrow if he agrees with surgical consult then we will refer the patient to Dr. Valencia. Ordered: bumetanide, 1 mg 1 tabs, Oral, BID, # 180 tabs, 4 Refill(s), Pharmacy: [id number], 1 tabs Oral BID,x90 days Office Visit Level 4 Est 77460 Over 40 minutes were spent [id number] with this patient today
--- OUTSIDE RECORDS SUMMARY | 2017-06-23 17:45 | External Medical Summary | Referral Summary ---
:1940 Author Organization [facility] [place] [place] [address] Care Team Providers Name Role Phone Alfredo Montes Primary Care Physician Encounter VC Date(s): 08/29/15 - 08/29/15 [facility] [place] [place] [address] [place] Discharge Disposition: 01-Home or Self Care Attending Physician: Alfredo Montes DO Admitting Physician: Alfredo Montes DO Vital Signs Most recent to oldest [Reference Range]: 1 Temperature Tympanic [36.6-38.1 degC] 37 degC (08/29/15 2:39 PM) Peripheral Pulse Rate [60-100 bpm] 80 bpm (08/29/15 2:39 PM) Blood Pressure [90-140/60-90 mmHg] 124/55 mmHg (08/29/15 2:39 PM) Problem List Condition Effective [...] BEDTIME, # 90 tabs, 1 Refill(s), eRx: [facility], TAKE 1 TABLET AT BEDTIME Start Date: 05/06/15 Status: Orderedamitriptyline 50 mg oral tablet 50 mg 1 tabs, Oral, Bedtime (once a day), # 90 tabs, 2 Refill(s), Pharmacy: [facility], 1 tabs Oral Bedtime (once a day) Start Date: 02/25/15 Status: Orderedbumetanide 2 mg oral tablet 0.5 tabs, Oral, Daily, # 45 tabs, 2 Refill(s), Pharmacy: [facility], 0.5 tabs Oral Daily Start Date: 08/23/14 Status: Orderedlatanoprost 0.005% ophthalmic solution 1 drops, Eye-Both, Bedtime (once a day), Please send 90 day supply quantity sufficient, # 3 Each, 2 Refill(s), Pharmacy: [facility] Start Date: 02/25/15 Status: Orderedlevothyroxine 75 mcg (0.075 mg) oral tablet 75 mcg 1 tabs, Oral, Daily, # 90 tabs, 2 Refill(s), Pharmacy: [facility], 1 tabs Oral Daily Start Date: 02/25/15 Status: Orderedmetoprolol tartrate 25 mg oral tablet 25 mg 1 tabs, Oral, BID, # 180 tabs, 0 Refill(s) Start Date: 08/29/15 Status: OrderedNitrostat 0.4 mg sublingual tablet 1 tabs, SubLingual, q5min, as needed for chest pain, not to exceed 3 doses/15 min--if pain persists,seek medical attention, # 8,640 tabs, 1 Refill(s), Pharmacy: [facility], 1 tabs SubLingual q5min,PRN:as needed for chest pain, Instr:not to exceed... Start Date: 08/23/14 Status: Orderedomeprazole 40 mg oral delayed release capsule See Instructions, TAKE 1 CAPSULE EVERY DAY, # 90 caps, 1 Refill(s), eRx: [facility], TAKE 1 CAPSULE EVERY DAY Start Date: 05/06/15 Status: Orderedspironolactone 25 mg oral tablet 25 mg 1 tabs, Oral, BID, # 180 tabs, 2 Refill(s), Pharmacy: [facility], 1 tabs Oral BID Start Date: 02/25/15 Status: Orderedtriamcinolone 0.1% topical cream See Instructions, APPLY TO AFFECTED AREA(S) TWICE DAILY, # 90 g, 2 Refill(s), eRx: [facility], APPLY TO AFFECTED AREA(S) TWICE DAILY Start Date: 07/19/15 Status: Orderedwarfarin 2 mg oral tablet See Instructions, Take as directed per INR Right now patient on 3 tabs daily 90 day supply, # 270 tabs, 2 Refill(s), Pharmacy: [facility], Take as directed [...] 1974 1PDr. Bryan QUACH - see Conversion [id number]. Lm in [place] - see Conversion Document. Social History Social History Type Response Smoking Status Never smoker Assessment and Plan No data available for this section
--- OUTSIDE RECORDS SUMMARY | 2017-06-23 17:45 | External Medical Summary | Referral Summary ---
:1940 Author Organization [facility] Address [address] [place] [address] [place] [address] Care Team Providers Name Role Phone Alfredo Montes Primary Care Physician Encounter VC Date(s): 12/27/15 - 12/27/15 [facility] [place], [address] [place] [address] [place] Discharge Diagnosis: Encounter for change or removal of drains Discharge Diagnosis: Malignant neoplasm of overlapping sites of right female breast Discharge Diagnosis: Bilateral breast cancer Discharge Disposition: 01-Home or Self Care Attending Physician: Eddie Chris MD Admitting Physician: Eddie Chris MD Vital Signs Most recent to oldest [Reference Range]: 1 Temperature Tympanic [36.6-38.1 degC] 36.9 degC (12/27/15 11:42 AM) Problem List Condition Effective [...] BEDTIME, # 90 tabs, 1 Refill(s), Pharmacy: [facility], TAKE 1 TABLET AT BEDTIME Start Date: 11/07/15 Status: Orderedamitriptyline 50 mg oral tablet 50 mg 1 tabs, Oral, Bedtime (once a day), # 90 tabs, 2 Refill(s), Pharmacy: [facility], 1 tabs Oral Bedtime (once a day) Start Date: 11/07/15 Status: Orderedbumetanide 2 mg oral tablet 0.5 tabs, Oral, Daily, # 45 tabs, 2 Refill(s), Pharmacy: [facility], 0.5 tabs Oral Daily Start Date: 08/23/14 Status: Orderedlatanoprost 0.005% ophthalmic solution 1 drops, Eye-Both, Bedtime (once a day), Please send 90 day supply quantity sufficient, # 3 Each, 2 Refill(s), Pharmacy: [facility] Start Date: 11/07/15 Status: Orderedlevothyroxine 75 mcg (0.075 mg) oral tablet 75 mcg 1 tabs, Oral, Daily, # 90 tabs, 2 Refill(s), Pharmacy: [facility], 1 tabs Oral Daily Start Date: 11/07/15 Status: Orderedmetoprolol tartrate 25 mg oral tablet 25 mg 1 tabs, Oral, BID, # 60 tabs, 2 Refill(s), Pharmacy: [facility] Start Date: 11/07/15 [...] DAY, # 90 caps, 1 Refill(s), Pharmacy: [facility], TAKE 1 CAPSULE EVERY DAY Start Date: 11/07/15 Status: Orderedspironolactone 25 mg oral tablet 25 mg 1 tabs, Oral, BID, # 180 tabs, 1 Refill(s), Pharmacy: [facility], 1 tabs Oral BID Start Date: 11/07/15 Status: Orderedtriamcinolone 0.1% topical cream See Instructions, APPLY TO AFFECTED AREA(S) TWICE DAILY, # 90 g, 2 Refill(s), eRx: [facility], APPLY TO AFFECTED AREA(S) TWICE DAILY Start Date: 07/19/15 Status: Orderedtriamcinolone 0.1% topical cream See Instructions, APPLY TO AFFECTED AREA(S) TWICE DAILY, # 90 g, 2 Refill(s), Pharmacy: [facility] Start Date: 11/07/15 Stop Date: 11/06/16 Status: Orderedwarfarin 2 mg oral tablet See Instructions, Take as directed per INR Right now patient on 3 tabs daily 90 day supply, # 270 tabs, 2 Refill(s), Pharmacy: [facility] , Take as directed [...] Both bresasts Invasive ductal carcinoma, 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 Bryan QUACH - see Conversion [id number]. Lm in [place] - see Conversion Document.5Needs additional Imaging. See scanned document Social History Social History Type Response Smoking Status Never smoker Assessment and Plan Extracted from: Title: Office Visit Note Author: Eddie Chris MD Date: 12/27/15 Assessment/Plan 1.Encounter for change or removal of drains Ordered: Postoperative Est 89591 2.Bilateral breast cancer, Malignant neoplasm of overlapping sites of right female breast Ordered: Postoperative Est 20073 Plan: remove all 4 drains today, restart Warafin on December 28 and follow up with Dr. Montes for INR monitoring. Keep appointments with Dr. Love as scheduled. Follow up with me in 1weekfor suture/staple removal. I did inform the patient that her pathology did reveal onesingle focus of micro-metastatic ductal carcinomato her rightaxillary sentinel lymph node. I informed the patient that I will de lexy to oncology any additional treatmentthat is needed. Patient was informed that I am pleased with her surgical outcome. We did remove her drains today. I am a little reluctant tore-initiate her Coumadintoday. Patient was informedthat on Wednesday she should restart her Coumadin. She is follow-up with her PCPfor his end of next week for recheck of her INR. Patient was informed th at I would also like to see her back next week in follow-up. She is also to see her oncologistas well.
--- OUTSIDE RECORDS SUMMARY | 2017-06-23 17:45 | External Medical Summary | Referral Summary ---
:1940 Author Organization [facility] [place], [facility] Address [address] [place] [address] [place] [address] Care Team Providers Name Role Phone Alfredo Montes Primary Care Physician Encounter VC Date(s): 11/16/15 - 11/16/15 [facility] [place], [address] [place] [address] [place] Discharge Disposition: 01-Home or Self Care Attending Physician: Dl Pang MD Admitting Physician: Dl Pang MD Vital Signs Most recent to oldest [Reference Range]: 1 Temperature Tympanic [36.6-38.1 degC] 36.6 degC (11/16/15 10:13 AM) Peripheral Pulse Rate [60-100 bpm] 106 bpm *HI* (11/16/15 10:13 AM) Blood Pressure [90-140/60-90 mmHg] 128/78 mmHg (11/16/15 10:13 AM) SpO2 87 % (11/16/15 [...] BEDTIME, # 90 tabs, 1 Refill(s), Pharmacy: [facility], TAKE 1 TABLET AT BEDTIME Start Date: 11/07/15 Status: Orderedamitriptyline 50 mg oral tablet 50 mg 1 tabs, Oral, Bedtime (once a day), # 90 tabs, 2 Refill(s), [facility], 1 tabs Oral Bedtime (once a day) Start Date: 11/07/15 Status: Orderedbumetanide 2 mg oral tablet 0.5 tabs, Oral, Daily, # 45 tabs, 2 Refill(s), Pharmacy: [facility], 0.5 tabs Oral Daily Start Date: 08/23/14 Status: Orderedlatanoprost 0.005% ophthalmic solution 1 drops, Eye-Both, Bedtime (once a day), Please send 90 day supply quantity sufficient, # 3 Each, 2 Refill(s), Pharmacy: [facility] Start Date: 11/07/15 Status: Orderedlevothyroxine 75 mcg (0.075 mg) oral tablet 75 mcg 1 tabs, Oral, Daily, # 90 tabs, 2 Refill(s), [facility], 1 tabs Oral Daily Start Date: 11/07/15 Status: Orderedmetoprolol tartrate 25 mg oral tablet 25 mg 1 tabs, Oral, BID, # 60 tabs, 2 Refill(s), Pharmacy: [facility] Start Date: 11/07/15 Status: OrderedNitrostat 0.4 mg sublingual tablet 1 [...] DAY, # 90 caps, 1 Refill(s), Pharmacy: [facility], TAKE 1 CAPSULE EVERY DAY Start Date: 11/07/15 Status: Orderedspironolactone 25 mg oral tablet 25 mg 1 tabs, Oral, BID, # 180 tabs, 1 Refill(s), Pharmacy: [facility], 1 tabs Oral BID Start Date: 11/07/15 Status: Orderedtriamcinolone 0.1% topical cream See Instructions, APPLY TO AFFECTED AREA(S) TWICE DAILY, # 90 g, 2 Refill(s), eRx: [facility], APPLY TO AFFECTED AREA(S) TWICE DAILY Start Date: 07/19/15 Status: Orderedtriamcinolone 0.1% topical cream See Instructions, APPLY TO AFFECTED AREA(S) TWICE DAILY, # 90 g, 2 Refill(s), Pharmacy: [facility] Start Date: 11/07/15 Stop Date: 11/06/16 Status: Orderedwarfarin 2 mg oral tablet See Instructions, Take as directed per INR Right now patient on 3 tabs daily 90 day supply, # 270 tabs, 2 Refill(s), Pharmacy: [facility] , Take as directed per [...] combination internal cardiac defibrillator and pacemaker Mammogram4 1[facility] Louise [id number]. Bryan QUACH - see Conversion [id number]. Lm in [place] - see Conversion Document.4Needs additional Imaging. See scanned document Social History Social History Type Response Smoking Status Never smoker Assessment and Plan Extracted from: Title: Ambulatory Patient Education Author: Dl Pang MD Date: 11/16/15 Family Medicine Chest Pain Observation It is often hard to give a specific diagnosis for the cause of chest pain. Among other possibilities your symptoms might be caused by inadequate oxygen delivery to your heart (angina). Angina that is no t treated or evaluated can lead to a heart attack (myocardial infarction) or . Blood tests, electrocardiograms, and X-rays may have been done to help determine a possible cause of your chest pain. After evaluation and observation , your health care provider has determined that it i s unlikely your pain was caused by an unstable condition that requires hospitalization. However, a full evaluation of your pain may need to be completed, with additional diagnostic testing as directed. It is very important to keep your follow-up appointments. Not keeping your follow-up appointments could result in permanent heart damage, disability, or . If there is any problem keeping your follo w-up appointments, you must call your health care [...] Released: 08/21/2011 Document Revised: 07/24/2014 Document Reviewed: 01/18/2014 [facility] Patient Information 2015 [employer] [facility]. Musculoskeletal Contusion A contusion is a deep bruise. Contusions are the result of an injury that caused bleeding under the skin. The contusion may turn blue, purple, or yellow. Minor injuries will give you a painless contusio n, but more severe contusions may stay painful [...] applying cold compresses to the injured area. Over-t he-counter medicines may also be recommended for pain [...] by your health care provider. Only take [id number] or prescription medicines for pain, discomfort, or fever as directed by your caregiver. Your caregiver may recommend avoiding anti-inflammatory medicines (aspirin, ibup rofen, and naproxen) for 48 hours because these [...] Released: 04/28/2006 Document Revised: 07/24/2014 Document Reviewed: 05/23/2012 [employer] Patient Information 2015 [employer] [facility]. No follow up information was provided. Extracted from: Title: CHF, chest pain, massive bruising, Author: Dl Pang MD Date: elevated INR Impression and Plan Diagnosis Acute chest pain (EVK88-PP R07.9, Working, Medical). Systolic CHF, acute on chronic (KTQ46-OT I50.23, Working, Medical). Coronary arteriosclerosis (disorder) (MGL57-ZM I25.10, Working, Medical). Traumatic hematoma of upper arm (ZUO17-LP S40.021A, Working, Medical). Plan: 1) We applied 5 liters oxygen per min. per NC in the office (IC). 2) EMS contacted for immediate transport to the ER, due to chest pains, dyspnea, and signs of CHF. 3) No medication changes were made at this time.. Orders Orders (Selected) Outpatient Orders Ordered Office Visit Level 4 Est 73817: Future (On Hold) BMP: PT/INR: . Dx/Order Association Plan: Diagnosis: Acute chest pain Comment: Modified: Office Visit Level 4 Est 70273; 11/16/15 15:10:00 CDT, Traumatic hematoma of upper arm | Systolic CHF, acute on chronic | Acute chest pain | Coronary arteriosclerosis (disorder) Diagnosis: Coronary arteriosclerosis (disorder) Comment: Modified: Office Visit Level 4 Est 29716; 11/16/15 15:10:00 CDT, Traumatic hematoma of upper arm | Systolic CHF, acute on chronic | Acute chest pain | Coronary arteriosclerosis (disorder) Diagnosis: Systolic CHF, acute on chronic Comment: Modified: Office Visit Level 4 Est 90710; 11/16/15 15:10:00 CDT, Traumatic hematoma of upper arm | Systolic CHF, acute on chronic | Acute chest pain | Coronary arteriosclerosis (disorder) Diagnosis: Traumatic hematoma of upper arm Comment: Modified: Office Visit Level 4 Est 54128; 11/16/15 15:10:00 CDT, Traumatic hematoma of upper arm | Systolic CHF, acute on chronic | Acute chest pain | Coronary arteriosclerosis (disorder) End of Orders ."
--- OUTSIDE RECORDS SUMMARY | 2017-06-23 17:45 | External Medical Summary | Referral Summary ---
:1940 Author Organization [facility], [place] [place] [address] Care Team Providers Name Role Phone Alfredo Montes Primary Care Physician Encounter VC Date(s): 10/08/15 - 10/08/15 [facility] [place] [place] [address] [place] Discharge Diagnosis: History of DVT (deep vein thrombosis) Discharge Disposition: 01-Home or Self Care Attending Physician: Alfredo Montes DO Admitting Physician: Alfredo Montes DO Vital Signs Most recent to oldest [Reference Range]: 1 Temperature Tympanic [36.6-38.1 degC] 36.7 degC (10/08/15 1:16 PM) Peripheral Pulse Rate [60-100 bpm] 85 bpm (10/08/15 1:16 PM) Blood Pressure [90-140/60-90 mmHg] 118/60 mmHg (10/08/15 1:16 PM) Problem List Condition Effective [...] BEDTIME, # 90 tabs, 1 Refill(s), eRx: [facility], TAKE 1 TABLET AT BEDTIME Start Date: 05/06/15 Status: Orderedamitriptyline 50 mg oral tablet 50 mg 1 tabs, Oral, Bedtime (once a day), # 90 tabs, 2 Refill(s), Pharmacy: [facility], 1 tabs Oral Bedtime (once a day) Start Date: 02/25/15 Status: Orderedbumetanide 2 mg oral tablet 0.5 tabs, Oral, Daily, # 45 tabs, 2 Refill(s), Pharmacy: [facility], 0.5 tabs Oral Daily Start Date: 08/23/14 Status: Orderedlatanoprost 0.005% ophthalmic solution 1 drops, Eye-Both, Bedtime (once a day), Please send 90 day supply quantity sufficient, # 3 Each, 2 Refill(s), Pharmacy: [facility] Start Date: 02/25/15 Status: Orderedlevothyroxine 75 mcg (0.075 mg) oral tablet 75 mcg 1 tabs, Oral, Daily, # 90 tabs, 2 Refill(s), Pharmacy: [facility], 1 tabs Oral Daily [...] DAY, # 90 caps, 1 Refill(s), eRx: [facility], TAKE 1 CAPSULE EVERY DAY Start Date: 05/06/15 Status: Orderedspironolactone 25 mg oral tablet 25 mg 1 tabs, Oral, BID, # 180 tabs, 2 Refill(s), Pharmacy: [facility], 1 tabs Oral BID Start Date: 02/25/15 Status: Orderedtriamcinolone 0.1% topical cream See Instructions, APPLY TO AFFECTED AREA(S) TWICE DAILY, # 90 g, 2 Refill(s), eRx: [facility], APPLY TO AFFECTED AREA(S) TWICE DAILY Start Date: 07/19/15 Status: Orderedwarfarin 2 mg oral tablet See Instructions, Take as directed per INR Right now patient on 3 tabs daily 90 day supply, # 270 tabs, 2 Refill(s), Pharmacy: [facility], Take as directed per INR; Right now patient on 3 tabs daily 90 day supply Start Date: 02/25/15 Status: Ordered Results Hematology Most recent to oldest [Reference Range]: 1 WBC [4.8-10.8 10*3/uL] 10.8 10*3/uL (10/08/15 2:15 PM) RBC [4.00-5.20] 4.61 (10/08/15 2:15 PM) Hgb [12.0-16.0 gm/dL] 14.1 gm/dL (10/08/15 2:15 PM) Hct [37.0-47.0 %] 44.0 % (10/08/15 2:15 PM) MCV [82.0-99.0 fL] 95.4 fL (10/08/15 2:15 PM) MCH [27.0-32.0 pg] 30.6 pg (10/08/15 2:15 PM) MCHC [32.0-36.0 gm/dL] 32.0 gm/dL (10/08/15 2:15 PM) RDW [11.5-14.5 %] 15.9 % *HI* (10/08/15 2:15 PM) Platelet [150-400 10*3/uL] 270 10*3/uL (10/08/15 2:15 PM) MPV [8.8-14.8 fL] 10.1 fL (10/08/15 2:15 PM) Immature Granulocytes [0.0-1.0 %] 0.5 % (10/08/15 2:15 PM) Neutrophils [51-75 %] 71 % (10/08/15 2:15 PM) Lymphocytes [20-46 %] 18 % *LOW* (10/08/15 2:15 PM) Monocytes [4-11 %] 9 % (10/08/15 2:15 PM) Eosinophils [0-4 %] 1 % (10/08/15 2:15 PM) Basophils [0-2 %] 0 % (10/08/15 2:15 PM) Neutro Absolute [1.90-7.00 10*3] 7.65 10*3 *HI* (10/08/15 2:15 PM) Lymph Absolute [0.80-3.30 10*3] 1.98 10*3 (10/08/15 2:15 PM) [place] Absolute [0.30-1.00 10*3] 1.00 10*3 (10/08/15 2:15 PM) Eos Absolute [0.00-0.50 10*3] 0.06 10*3 (10/08/15 2:15 PM) Baso Absolute [0.00-0.20 10*3] 0.03 10*3 (10/08/15 2:15 PM) Coagulation Most recent to oldest [Reference Range]: 1 PT Venous (10/08/15 2:15 PM) INR [0.8-1.2] 1.4 1 *HI* (10/08/15 2:15 PM) 1Result Comment: Normal (no anticoagulant): 0.8 - 1.2 Units Routine Therapeutic Range: 2.0 - 3.0 Units High Risk Therapeutic Range: 2.5 - 3.5 UnitsChemistry Most recent to oldest [Reference Range]: 1 Sodium Lvl [135-144 mEq/L] 139 mEq/L (10/08/15 2:15 PM) Potassium Lvl [3.5-5.2 mEq/L] 4.3 mEq/L (10/08/15 2:15 PM) Chloride [99-111 mEq/L] 101 mEq/L (10/08/15 2:15 PM) CO2 [22-31 mEq/L] 27 mEq/L (10/08/15 2:15 PM) AGAP [3-20] 11 (10/08/15 2:15 PM) BUN [10-20 mg/dL] 27 mg/dL *HI* (10/08/15 2:15 PM) Glucose Lvl [70-99 mg/dL] 110 mg/dL *HI* (10/08/15 2:15 PM) Creatinine Lvl [0.57-1.11 mg/dL] 1.49 mg/dL *HI* (10/08/15 2:15 PM) eGFR [>60 mL/min] 34 mL/min 1 *ABN* (10/08/15 2:15 PM) Calcium Lvl [8.9-10.5 mg/dL] 9.6 mg/dL (10/08/15 2:15 PM) Albumin Lvl [3.4-4.8 gm/dL] 4.3 gm/dL (10/08/15 2:15 PM) Total Protein [6.2-8.1 gm/dL] 7.4 gm/dL (10/08/15 2:15 PM) Globulin [1.8-4.0 gm/dL] 3.1 gm/dL (10/08/15 2:15 PM) ALT [0-55 U/L] 22 U/L (10/08/15 2:15 PM) AST [5-34 U/L] 24 U/L (10/08/15 2:15 PM) Alk Phos [40-150 U/L] 87 U/L (10/08/15 2:15 PM) Bili Total [0.2-1.2 mg/dL] 0.6 mg/dL (10/08/15 2:15 PM) 1Result Comment: Multiply eGFR [...] Cataract Right 2006 Adenomatous polyp 2005 Colonoscopy 2005 Knee replacement L 2004 Knee replacement R 2004 BREAST BIOPSY LEFT AND RIGHT 1996 Thyroid Surgery ANKUSH THYROID 1997 HERNIATED DISC L4-5 1995 Appendectomy 1974 gall bladder 1974 Mammogram3 1PDr. Bryan QUACH - see Conversion [id number]. Lm soto [place] - see Conversion Document.3Needs additional Imaging. See scanned document Social History Social History Type Response Smoking Status Never smoker Assessment and Plan Extracted from: Title: New diagnosis of bilateral breast cancer Author: Alfredo Montes DO Date: 10/08/15 Assessment/Plan History of DVT (deep vein thrombosis) 1. We will continue her on Coumadin therapy. We will check the INR today and adjust her medication accordingly. Is likely she will need to be back on the sa me dose she was taking previously which was 6 mg on Tuesdays and and 5 mg the rest of the week. 2. Additional labs ordered today to include CBC and complete metabolic profileto establish baselinesinceshe will be needing treatment for her breast cancer. Ordered: CBC w/ Differential Comprehensive Metabolic Panel Office Visit Level 4 Est 44070 Invasive ductal carcinoma of left breast 1. Pathology report discussed in detail with the patient, all questions were answered. 2. She was wanting to see Dr. Hallman for oncology. Referral was made. Ordered: CBC w/ Differential Comprehensive Metabolic Panel Office Visit Level 4 Est 33900 Invasive ductal carcinoma of right breast As above. Ordered: CBC w/ Differential Comprehensive Metabolic Panel Office Visit Level 4 Est 39343
--- OUTSIDE RECORDS SUMMARY | 2017-06-23 17:45 | External Medical Summary | Referral Summary ---
:1940 Author Organization [facility], Surgery Address [address] [place] [address] [place] [address] Care Team Providers Name Role Phone Alfredo Montes Primary Care Physician Encounter VC Date(s): 01/27/16 - 01/27/16 [facility], [address] [place] [address] [place] Discharge Diagnosis: Encounter for change or removal of drains Discharge Disposition: 01-Home or Self Care Attending Physician: Chapis Wolff APRN Admitting Physician: Chapis Wolff APRN Vital Signs Most recent to oldest [Reference Range]: 1 Temperature Tympanic [36.6-38.1 degC] 37.4 degC (01/27/16 8:37 AM) Problem List Condition Effective [...] BEDTIME, # 90 tabs, 1 Refill(s), Pharmacy: [facility], TAKE 1 TABLET AT BEDTIME Start Date: 11/07/15 Status: Orderedamitriptyline 50 mg oral tablet 50 mg 1 tabs, Oral, Bedtime (once a day), # 90 tabs, 2 Refill(s), [facility], 1 tabs Oral Bedtime (once [...] sufficient, # 3 Each, 2 Refill(s), [facility] Start Date: 11/07/15 Status: Orderedlevothyroxine 75 mcg (0.075 mg) oral tablet 75 mcg 1 tabs, Oral, Daily, # 90 tabs, 2 Refill(s), Pharmacy: [facility], 1 tabs Oral Daily Start Date: 11/07/15 Status: Orderedmetoprolol tartrate 25 mg oral tablet 25 mg 1 tabs, Oral, BID, # 60 tabs, 2 Refill(s), Pharmacy: [facility] Start Date: 11/07/15 Status: Orderedminocycline 100 mg oral capsule 100 mg 1 caps, Oral, BID, # 20 caps, 0 Refill(s) Start Date: 12/06/15 Stop Date: 12/16/15 Status: OrderedNitrostat 0.4 mg sublingual tablet 1 tabs, SubLingual, q5min, as needed for chest pain, not to exceed 3 doses/15 min--if pain persists,seek medical attention, # 8,640 tabs, 1 Refill(s), [facility]: [facility], 1 tabs SubLingual q5min,PRN:as needed for chest pain, Instr:not to exceed... Start Date: 08/23/14 Status: Orderedomeprazole 40 mg oral delayed release capsule See Instructions, TAKE 1 CAPSULE EVERY DAY, # 90 caps, 1 Refill(s), Pharmacy: [facility], TAKE 1 CAPSULE EVERY DAY Start Date: 11/07/15 Status: Orderedspironolactone 25 mg oral tablet 25 mg 1 tabs, Oral, BID, # 180 tabs, 1 Refill(s), Pharmacy: [facility], 1 tabs Oral BID Start Date: 11/07/15 Status: Orderedtriamcinolone 0.1% topical cream See Instructions, APPLY TO AFFECTED AREA(S) TWICE DAILY, # 90 g, 2 Refill(s), eRx: [facility], APPLY TO AFFECTED AREA(S) TWICE DAILY Start Date: 07/19/15 Status: Orderedtriamcinolone 0.1% topical cream See Instructions, APPLY TO AFFECTED AREA(S) TWICE DAILY, # 90 g, 2 Refill(s), Pharmacy: [facility] Start Date: 11/07/15 Stop Date: 11/06/16 Status: Orderedwarfarin 2 mg oral tablet See Instructions, Take as directed per INR Right now patient on 3 tabs daily 90 day supply, # 270 tabs, 2 Refill(s), Pharmacy: [facility] , Take as directed [...] BIOPSY LEFT AND RIGHT 1996 Thyroid Surgery ANKUHS THYROID 1997 HERNIATED DISC L4-5 1995 Appendectomy 1974 gall bladder 1974 History of combination internal cardiac defibrillator and pacemaker Mammogram6 [id number] nods negative on frozen section.Right node with single focus of micrometastatis on permanent sections. Both bresasts Invasive ductal carcinoma, SBR/[place] Grade I3The [facility] [id number]. Bryan QUACH - see Conversion [id number] Amato in [place] - see Conversion Document.6Needs additional Imaging. See scanned document Social History Social History Type Response Smoking Status Never smoker Assessment and Plan Extracted from: Title: Office Visit Note Author: Chapis Wolff APRN Date: 01/27/16
--- OUTSIDE RECORDS SUMMARY | 2017-06-23 17:46 | External Medical Summary | Referral Summary ---
:1940 Author Organization [facility] Address [address] [place] [address] [place] [address] Care Team Providers Name Role Phone Alfredo Montes Primary Care Physician Encounter VC Date(s): 03/27/16 - 03/27/16 [facility] [place], [address] [place] [address] [place] Discharge Diagnosis: Post-operative state Discharge Disposition: 01-Home or Self Care Attending Physician: Eddie Cabrera MD Admitting Physician: Eddie Cabrera MD Referring Physician: Alfredo Montes DO Vital Signs Most recent to oldest [Reference Range]: 1 Temperature Tympanic [36.6-38.1 degC] 35.8 degC *LOW* (03/27/16 9:01 AM) Peripheral Pulse Rate [60-100 bpm] 77 bpm (03/27/16 9:01 AM) Respiratory Rate [14-20 br/min] 18 br/min (03/27/16 9:01 AM) SpO2 92 % (03/27/16 [...] BEDTIME, # 90 tabs, 1 Refill(s), Pharmacy: [facility], TAKE 1 TABLET AT BEDTIME Start Date: 11/07/15 Status: Orderedamitriptyline 50 mg oral tablet 50 mg 1 tabs, Oral, Bedtime (once a day), # 90 tabs, 2 Refill(s), Pharmacy: [facility], 1 tabs Oral Bedtime (once a day) Start Date: 11/07/15 Status: Orderedbumetanide 2 mg oral tablet 0.5 tabs, Oral, Daily, # 45 tabs, 2 Refill(s), Pharmacy: [facility], 0.5 tabs Oral Daily Start Date: 08/23/14 Status: OrderedEntresto 1 tabs, Oral, BID, 0 Refill(s) Start Date: 03/27/16 Status: Orderedlatanoprost 0.005% ophthalmic solution 1 drops, Eye-Both, Bedtime (once a day), Please send 90 day supply quantity sufficient, # 3 Each, 2 Refill(s), Pharmacy: [facility] Start Date: 11/07/15 Status: Orderedletrozole 2.5 mg oral tablet 2.5 mg 1 tabs, Oral, Daily, # 30 tabs, 0 Refill(s) Start Date: 03/27/16 Stop Date: 04/26/16 Status: Orderedlevothyroxine 75 mcg (0.075 mg) oral tablet 75 mcg 1 tabs, Oral, Daily, # 90 tabs, 2 Refill(s), [facility], 1 tabs Oral Daily Start Date: 11/07/15 Status: OrderedMetoprolol Tartrate 25 mg oral tablet See Instructions, TAKE 1 TABLET TWICE DAILY, # 180 tabs, 2 Refill(s), eRx: [facility], TAKE 1 TABLET TWICE DAILY Start Date: 03/05/16 Status: OrderedNitrostat 0.4 mg sublingual tablet 1 tabs, SubLingual, q5min, as needed for chest pain, not to exceed 3 doses/15 min--if pain persists,seek medical attention, # 8,640 tabs, 1 Refill(s), Pharmacy: [facility], 1 tabs SubLingual q5min,PRN:as needed for chest pain, Instr:not to exceed... Start Date: 08/23/14 Status: Orderedomeprazole 40 mg oral delayed release capsule See Instructions, TAKE 1 CAPSULE EVERY DAY, # 90 caps, 1 Refill(s), Pharmacy: [facility], TAKE 1 CAPSULE EVERY DAY Start Date: 11/07/15 Status: Orderedspironolactone 25 mg oral tablet 25 mg 1 tabs, Oral, BID, # 180 tabs, 1 Refill(s), Pharmacy: [facility], 1 tabs Oral BID Start Date: 11/07/15 Status: Orderedtriamcinolone 0.1% topical cream See Instructions, APPLY TO AFFECTED AREA(S) TWICE DAILY, # 90 g, 2 Refill(s), eRx: [facility], APPLY TO AFFECTED AREA(S) TWICE DAILY Start Date: 07/19/15 Status: Orderedtriamcinolone 0.1% topical cream See Instructions, APPLY TO AFFECTED AREA(S) TWICE DAILY, # 90 g, 2 Refill(s), Pharmacy: [facility] Start Date: 11/07/15 Stop Date: 11/06/16 Status: OrderedXarelto 20 mg oral tablet 20 [...] combination internal cardiac defibrillator and pacemaker Mammogram6 [id number] nods negative on frozen section.Right node with single focus of micrometastatis on permanent sections. 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 Bryan QUACH - see Conversion [id number] Amato in [place] - see Conversion Document.6Needs additional Imaging. See scanned document Social History Social History Type Response Smoking Status Never smoker Assessment and Plan Extracted from: Title: Office Visit Note Author: Eddie Cabrera MD Date: 03/27/16 Assessment/Plan 1.Post-operative state Ordered: Postoperative Est 31175 Orders: letrozole, 2.5 mg 1 tabs, Oral, [...] She was found to have 1 small micrometas taticfocus of cancer within 1 of her central lymph nodes. On the left she was found at 1.5 cminvasive ductal carcinomain conjunction with a small foci of ductal carcinoma in situand lobular ca rcinoma in situ. [place] node was negative. I informed the patientthat statistically speaking she should have a very good prognosis. I informed the patientthat overall I'm pleased with her treviño rgical outcome. She did not have a majorpostoperative complication. She has 1 very small superficial wound which I do believe will heal on its own behalf over the next couple weeks. The smallf oci ofnecroticepidermis was debrided sharply with a surgical curette. Patient was instructed to simply place antibioticointment overlying this area of concern followed by Band-Aid on a daily bas is. I informed the patient that I did extend her mastectomy incisions further posteriorlythan normal and did remove perhaps7-8 cm of skinand underlying subcutaneous tissues. Despite this she still has some"extra"subcutaneous tissuesresulting in what she describes as "bat wings". I informed the patient that she could be return to the operating room andthis could be revised if she d esired. I informed the patient that I would like to set her up to seea plasticsurgerytoat least discuss the potential ofbreast reconstruction or revision of her mastectomy incisions. Appo intment was set up for patient. Patient to follow me on when necessary basis at this time.
--- OUTSIDE RECORDS SUMMARY | 2017-06-23 17:46 | External Medical Summary | Referral Summary ---
:1940 Author Organization [facility] Address [address] [place] [address] [place] [address] Care Team Providers Name Role Phone Alfredo Montes Primary Care Physician Encounter VC Date(s): 01/10/16 - 01/10/16 [facility] [place], [address] [place] [address] [place] Discharge Diagnosis: S/p bilateral mastectomy Discharge Disposition: 01-Home or Self Care Attending Physician: Eddie Chris MD Admitting Physician: Eddie Chris MD Referring Physician: Alfredo Montes DO Vital Signs Most recent to oldest [Reference Range]: 1 Temperature Tympanic [36.6-38.1 degC] 37.5 degC (01/10/16 2:04 PM) Problem List Condition Effective [...] BEDTIME, # 90 tabs, 1 Refill(s), [facility], TAKE 1 TABLET AT BEDTIME Start Date: 11/07/15 Status: Orderedamitriptyline 50 mg oral tablet 50 mg 1 tabs, Oral, Bedtime (once a day), # 90 tabs, 2 Refill(s), Pharmacy: [facility], 1 tabs Oral Bedtime (once a day) Start Date: 11/07/15 Status: Orderedbumetanide 2 mg oral tablet 0.5 tabs, Oral, Daily, # 45 tabs, 2 Refill(s), Pharmacy: [facility], 0.5 tabs Oral Daily Start Date: 08/23/14 Status: Orderedlatanoprost 0.005% ophthalmic solution 1 drops, Eye-Both, Bedtime (once a day), Please send 90 day supply quantity sufficient, # 3 Each, 2 Refill(s), Pharmacy: [facility] Start Date: 11/07/15 Status: Orderedlevothyroxine 75 mcg (0.075 mg) oral tablet 75 mcg 1 tabs, Oral, Daily, # 90 tabs, 2 Refill(s), Pharmacy: [facility], 1 tabs Oral Daily Start Date: 11/07/15 Status: Orderedmetoprolol tartrate 25 mg oral tablet 25 mg 1 tabs, Oral, BID, # 60 tabs, 2 Refill(s), Pharmacy: [facility] Start Date: 11/07/15 Status: [...] DAY, # 90 caps, 1 Refill(s), Pharmacy: [facility], TAKE 1 CAPSULE EVERY DAY Start Date: 11/07/15 Status: Orderedspironolactone 25 mg oral tablet 25 mg 1 tabs, Oral, BID, # 180 tabs, 1 Refill(s), Pharmacy: [facility], 1 tabs Oral BID Start Date: 11/07/15 Status: Orderedtriamcinolone 0.1% topical cream See Instructions, APPLY TO AFFECTED AREA(S) TWICE DAILY, # 90 g, 2 Refill(s), eRx: [facility], APPLY TO AFFECTED AREA(S) TWICE DAILY Start Date: 07/19/15 Status: Orderedtriamcinolone 0.1% topical cream See Instructions, APPLY TO AFFECTED AREA(S) TWICE DAILY, # 90 g, 2 Refill(s), Pharmacy: [facility] Start Date: 11/07/15 Stop Date: 11/06/16 Status: Orderedwarfarin 2 mg oral tablet See Instructions, Take as directed per INR Right now patient on 3 tabs daily 90 day supply, # 270 tabs, 2 Refill(s), Pharmacy: [facility] , Take as directed per [...] hernia4 2007 Cataract Left 2006 Cataract Right 2007 [...] Invasive ductal carcinoma, SBR/[place] Grade I2The Gil [id number]. Bryan QUACH - see Conversion Pafnhktv5Di. Lm in [place] - see Conversion Document.5Needs additional Imaging. See scanned document Social History Social History Type Response Smoking Status Never smoker Assessment and Plan Extracted from: Title: Office Visit Note Author: Eddie Chris MD Date: 01/10/16 Assessment/Plan 1.S/p bilateral mastectomy Ordered: Postoperative Est 89915 Plan: Aspiration of seromaalong right anterior chest wall. Skin prep without call. 18-gauge needle introduced into underlying seroma. Approximately 100 mL ofold blood was aspirated without di fficulty. Small amount of necrosis along midportion ofmastectomy incision was excised sharply with 15 blade. All galileo DC'd. Patient instructed to place antibiotic ointment overlying herinci sioninvolving her right anterior chest wallfollowed by a dressing on a daily basis. Patient toreturn office at one week interval or sooner if problems shouldarise. Addendum by Alfredo Montes DO on I reviewed this chart, the patient's medical history, January 10, 2016 17:35:48 CDT and the Resident's/MANUFACTURING OPERATIONS MANAGER's/PA/RN's/PharmD's documented findings, and concur with the assessment and plan as above.
--- OUTSIDE RECORDS SUMMARY | 2017-06-23 17:46 | External Medical Summary | Referral Summary ---
:1940 Author Organization [facility] [place] [place] [address] Care Team Providers Name Role Phone Alfredo Montes Primary Care Physician Encounter VC Date(s): 12/06/15 - 12/06/15 [facility] [place] [place] [address] [place] Discharge Diagnosis: Encounter for wound care Discharge Diagnosis: Anticoagulated on Coumadin Discharge Disposition: 01-Home or Self Care Attending Physician: Alfredo Montes DO Vital Signs Most recent to oldest [Reference Range]: 1 Temperature Tympanic [36.6-38.1 degC] 36.8 degC (12/06/15 2:48 PM) Peripheral Pulse Rate [60-100 bpm] 105 bpm *HI* (12/06/15 2:48 PM) Blood Pressure [90-140/60-90 mmHg] 130/55 mmHg (12/06/15 2:48 PM) SpO2 93 % (12/06/15 [...] BEDTIME, # 90 tabs, 1 Refill(s), Pharmacy: [facility], TAKE 1 TABLET AT BEDTIME Start Date: 11/07/15 Status: Orderedamitriptyline 50 mg oral tablet 50 mg 1 tabs, Oral, Bedtime (once a day), # 90 tabs, 2 Refill(s), Pharmacy: [facility], 1 tabs Oral Bedtime [...] sufficient, # 3 Each, 2 Refill(s), Pharmacy: [facility] Start Date: 11/07/15 Status: Orderedlevothyroxine 75 mcg (0.075 mg) oral tablet 75 mcg 1 tabs, Oral, Daily, # 90 tabs, 2 Refill(s), Pharmacy: [facility], 1 tabs Oral Daily Start Date: 11/07/15 Status: Orderedmetoprolol tartrate 25 mg oral tablet 25 mg 1 tabs, Oral, BID, # 60 tabs, 2 Refill(s), Pharmacy: [facility] Start Date: 11/07/15 Status: Orderedminocycline 100 mg oral capsule 100 mg 1 caps, Oral, BID, # 20 caps, 0 Refill(s) Start Date: 12/06/15 Stop Date: 12/16/15 Status: OrderedNitrostat 0.4 mg sublingual tablet 1 tabs, SubLingual, q5min, as needed for chest pain, not to exceed 3 doses/15 min--if pain persists,seek medical attention, # 8,640 tabs, 1 Refill(s), Pharmacy: [facility], 1 tabs SubLingual q5min,PRN:as needed for chest pain, Instr:not to exceed... Start Date: 08/23/14 Status: OrderedNorco 5 mg-325 mg oral tablet 1 tabs, Oral, q6hr, as needed for pain, # 15 tabs, 0 Refill(s) Start Date: 11/18/15 Status: Orderedomeprazole 40 mg oral delayed release capsule See Instructions, TAKE 1 CAPSULE EVERY DAY, # 90 caps, 1 Refill(s), Pharmacy: [facility], TAKE 1 CAPSULE EVERY DAY Start Date: 11/07/15 Status: Orderedspironolactone 25 mg oral tablet 25 mg 1 tabs, Oral, BID, # 180 tabs, 1 Refill(s), Pharmacy: [facility], 1 tabs Oral BID Start Date: 11/07/15 Status: Orderedtriamcinolone 0.1% topical cream See Instructions, APPLY TO AFFECTED AREA(S) TWICE DAILY, # 90 g, 2 Refill(s), eRx: [facility], APPLY TO AFFECTED AREA(S) TWICE DAILY Start Date: 07/19/15 Status: Orderedtriamcinolone 0.1% topical cream See Instructions, APPLY TO AFFECTED AREA(S) TWICE DAILY, # 90 g, 2 Refill(s), Pharmacy: [facility] Start Date: 11/07/15 Stop Date: 11/06/16 Status: Orderedwarfarin 2 mg oral tablet See Instructions, Take as directed per INR Right now patient on 3 tabs daily 90 day supply, # 270 tabs, 2 Refill(s), Pharmacy: [facility] , Take as directed [...] internal cardiac defibrillator and pacemaker Mammogram4 1The [facility] [id number]. Bryan QUACH - see Conversion [id number]. Lm soot [place] - see Conversion Document.4Needs additional Imaging. See [...] week. Ordered: Office Visit Level 3 Est 84054 Encounter for other specified aftercare, Encounter for wound care 1. Her surgical wound from repositioning of the different the later appears to be healing well. 2. Continue with antibiotic therapy as prescribed by engine dispatcher. 3. Follow-up if any new concerns. Ordered: Office Visit Level 3 Est 99524 Orders: PT
--- OUTSIDE RECORDS SUMMARY | 2017-06-23 17:46 | External Medical Summary | Referral Summary ---
:1940 Author Organization [facility] [place] [place] [address] Care Team Providers Name Role Phone Alfredo Montes Primary Care Physician Encounter VC Date(s): 04/24/15 - 04/24/15 [facility] [place] [place] [address] [place] Discharge Diagnosis: Coronary artery disease Discharge Diagnosis: Benign essential hypertension Discharge Diagnosis: Stage III chronic kidney disease Discharge Disposition: 01-Home or Self Care Attending Physician: Sukumar Arevalo MD Admitting Physician: Sukumar Arevalo MD Vital Signs Most recent to oldest [Reference Range]: 1 Temperature Tympanic [36.6-38.1 degC] 37.3 degC (04/24/15 3:06 PM) Blood Pressure [90-140/60-90 mmHg] 126/74 mmHg (04/24/15 3:06 PM) Problem List Condition Effective [...] BEDTIME, # 90 tabs, 1 Refill(s), eRx: [facility], TAKE 1 TABLET AT BEDTIME Start Date: 05/06/15 Status: Orderedamitriptyline 50 mg oral tablet 50 mg 1 tabs, Oral, Bedtime (once a day), # 90 tabs, 2 Refill(s), Pharmacy: [facility], 1 tabs Oral Bedtime (once a day) Start Date: 02/25/15 Status: Orderedbumetanide 2 mg oral tablet 0.5 tabs, Oral, Daily, # 45 tabs, 2 Refill(s), Pharmacy: [facility], 0.5 tabs Oral Daily Start Date: 08/23/14 Status: Orderedlatanoprost 0.005% ophthalmic solution 1 drops, Eye-Both, Bedtime (once a day), Please send 90 day supply quantity sufficient, # 3 Each, 2 Refill(s), Pharmacy: [facility] Start Date: 02/25/15 Status: Orderedlevothyroxine 75 mcg (0.075 mg) oral tablet 75 mcg 1 tabs, Oral, Daily, # 90 tabs, 2 Refill(s), Pharmacy: [facility], 1 tabs Oral Daily Start Date: 02/25/15 Status: Orderedmetoprolol tartrate 25 mg oral tablet 25 mg 1 tabs, Oral, BID, # 180 tabs, 0 Refill(s) Start Date: 08/29/15 Status: OrderedNitrostat 0.4 mg sublingual tablet 1 tabs, SubLingual, q5min, as needed for chest pain, not to exceed 3 doses/15 min--if pain persists,seek medical attention, # 8,640 tabs, 1 Refill(s), [facility], 1 tabs SubLingual q5min,PRN:as needed for chest pain, Instr:not to exceed... Start Date: 08/23/14 Status: Orderedomeprazole 40 mg oral delayed release capsule See Instructions, TAKE 1 CAPSULE EVERY DAY, # 90 caps, 1 Refill(s), eRx: [facility], TAKE 1 CAPSULE EVERY DAY Start Date: 05/06/15 Status: Orderedspironolactone 25 mg oral tablet 25 mg 1 tabs, Oral, BID, # 180 tabs, 2 Refill(s), Pharmacy: [facility], 1 tabs Oral BID Start Date: 02/25/15 Status: Orderedtriamcinolone 0.1% topical cream See Instructions, APPLY TO AFFECTED AREA(S) TWICE DAILY, # 90 g, 2 Refill(s), eRx: [facility], APPLY TO AFFECTED AREA(S) TWICE DAILY Start Date: 07/19/15 Status: Orderedwarfarin 2 mg oral tablet See Instructions, Take as directed per INR Right now patient on 3 tabs daily 90 day supply, # 270 tabs, 2 Refill(s), Pharmacy: [facility], Take as directed per [...] Mammogram3 1PDr. Bryan QUACH - see Conversion [id number]. Lm [place] - see Conversion Document.3Needs additional Imaging. See [...]
--- OUTSIDE RECORDS SUMMARY | 2017-06-23 17:46 | External Medical Summary | Continuity of Care Document ---
:1940 Author Organization [facility] Allergies Active Description Code Type Severity Reaction Onset Reported/ Identified Relationship Clinical to Patient Status Yes adhesive Drug Unknown SKIN 05/21/2010 tape Aller IRRITATIO gy N Yes adhesive adhes Drug Unknown SKIN 05/21/2010 tape meenakshi Aller IRRITATIO tape gy N Yes codeine Drug Unknown NAUSEA 06/03/2012 Aller gy Yes codeine codei Drug Unknown NAUSEA 06/03/2012 ne Aller gy Medications Problems Date Dx Attending Type Code Diagnosis Diagnosed By Coded 06/19/2017 SHANELL MOYA S R91.1 SOLITARY PULMONARY SHANELL MOYA NODULE 06/19/2017 SHANELL MOYA P T82.897A OTHER SPECIFIED SHANELL MOYA COMPLICATION OF CARDIAC PROSTHETIC DEVICES, IMPLANTS AND GRAFTS, INITIAL ENCOUNTER Procedures Encounters ACCT Visit Discharge Status Pt. Type Provider Facility Loc./Unit Complaint No. Date/Time [id number] 10/27/2013 10/27/2013 [place] [id number] 11:30:00 11:30:00 [facility] [id number] 06/16/2017 Document [id number] 05:03:00 Registration [id number] 05/20/2015 05/20/2015 DIS Outpatient Sarah SARAH [id number] 10:29:00 15:20:00 , [facility] ER [id number] 06/08/2017 06/08/2017 DIS Outpatient JOSE MOYA 13:48:00 13:48:00 SHANELL LEAD FAILURE
--- OUTSIDE RECORDS SUMMARY | 2017-06-23 17:46 | External Medical Summary | Referral Summary ---
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 Discharge Diagnosis: Breast cancer Discharge Disposition: 01-Home or Self Care Attending Physician: Eddie Chris MD Admitting Physician: Eddie Chris MD Referring Physician: Alfredo Montes DO Vital Signs Most recent to oldest [Reference Range]: 1 Temperature Tympanic [36.6-38.1 degC] 36.6 degC (11/06/15 9:14 AM) Blood Pressure [90-140/60-90 mmHg] 138/68 mmHg (11/06/15 9:14 AM) Problem List Condition Effective [...] BEDTIME, # 90 tabs, 1 Refill(s), eRx: [facility], TAKE 1 TABLET AT BEDTIME Start Date: 05/06/15 Status: Orderedamitriptyline 50 mg oral tablet 50 mg 1 tabs, Oral, Bedtime (once a day), # 90 tabs, 2 Refill(s), Pharmacy: [facility], 1 tabs Oral Bedtime (once a day) Start Date: 02/25/15 Status: Orderedbumetanide 2 mg oral tablet 0.5 tabs, Oral, Daily, # 45 tabs, 2 Refill(s), Pharmacy: [facility], 0.5 tabs Oral Daily Start Date: 08/23/14 Status: Orderedlatanoprost 0.005% ophthalmic solution 1 drops, Eye-Both, Bedtime (once a day), Please send 90 day supply quantity sufficient, # 3 Each, 2 Refill(s), Pharmacy: [facility] Start Date: 02/25/15 Status: Orderedlevothyroxine 75 mcg (0.075 mg) oral tablet 75 mcg 1 tabs, Oral, Daily, # 90 tabs, 2 Refill(s), Pharmacy: [facility], 1 tabs Oral Daily [...] DAY, # 90 caps, 1 Refill(s), eRx: [facility], TAKE 1 CAPSULE EVERY DAY Start Date: 05/06/15 Status: Orderedspironolactone 25 mg oral tablet 25 mg 1 tabs, Oral, BID, # 180 tabs, 2 Refill(s), Pharmacy: [facility], 1 tabs Oral BID Start Date: 02/25/15 Status: Orderedtriamcinolone 0.1% topical cream See Instructions, APPLY TO AFFECTED AREA(S) TWICE DAILY, # 90 g, 2 Refill(s), eRx: [facility], APPLY TO AFFECTED AREA(S) TWICE DAILY Start Date: 07/19/15 Status: Orderedwarfarin 2 mg oral tablet See Instructions, Take as directed per INR Right now patient on 3 tabs daily 90 day supply, # 270 tabs, 2 Refill(s), Pharmacy: [facility], Take as directed per [...] combination internal cardiac defibrillator and pacemaker Mammogram[address] [place], [place] [address]Dr. Bryan QUACH - see Conversion [id number]. Lm in [place] - see Conversion Document.4Needs additional Imaging. See scanned document Social History Social History Type Response Smoking Status Never smoker Assessment and Plan Extracted from: Title: Ambulatory Patient Education Author: Eddie Chris MD Date: 11/06/15 Obstetrics and Gynecology Breast Cancer Breast cancer is an abnormal growth of tissue (tumor) in the breast that is cancerous (malignant). Unlike noncancerous (benign) tumors, malignant tumors can spread to other parts of your body. The most common type of female breast cancer begins in the milk ducts (ductal carcinoma) . Breast cancer is one of the most [...] Released: 10/27/2006 Document Revised: 12/03/2014 Document Reviewed: 09/12/2014 Exit[employer] Patient Information 2015 [employer]. No follow up information was provided.
--- NOTE | 2017-06-23 17:55 | IRU History & Physical Report ---
HPI IRU Date: 750 Chief complaint: I am short of breath HPI: This patient is a 76-year-old female referred by Dr. Carson Wild from [facility]. Her primary care doctor is Dr. Alfredo Montes. The patient has a history of cardiomyopathy (she sees Dr. Gonzalez in [place] typically and we do not have information regarding ejection fraction) and initially had implantation of cardiac pacemaker in 2009. She then had a cardiac defibrillator/pacemaker placed on 10/09/2014. She was recently seen by Dr. Gonzalez and was advised that she needed to have the pacemaker/defibrillator replaced and a new left ventricular lead placed. She states she did not have any symptoms and there had been no discharges from the defibrillator to her knowledge. She had had no syncope/ lightheadedness etc. The patient was seen by Dr. Ramirez who took her to surgery on 06/16/2017 for a left anterior thoracotomy, extraction of coronary sinus lead, left ventricular lead placement and implantation of biventricular cardiac defibrillator. Patient has had quite a bit of pain in the thoracotomy site. In addition, the patient has a history of COPD. She states that she has never smoked cigarettes. Etiology of her lung disease is not clear. She normally uses oxygen at home at nighttime only. She uses it during the daytime rarely. She does have an oximeter and states that her oxygen level off oxygen is typically 89-91%. She was diagnosed with acute on chronic hypoxemic hypercapnic respiratory failure during the recent acute hospitalization. She is supposed to use a BiPAP at night but does not do so at home. She has been using that in the hospital. The patient has evidence of acute kidney injury with initial creatinine being 1.2 rising now to 1.8. (At the same time her BUN has increased from 36 up to 65 at present). She has undergone extensive diuresis in the acute care hospital which likely has contributed to this. In addition her sodium has decreased to a value of 133. She reports that her baseline weight is about 221 pounds. She currently weighs 213 pounds on our scales here. The patient has leukocytosis with white count around 14,000. It appears as though she is not on corticosteroids. Etiology of that is not clear. Denies any recent fever or any other evidence of infection. The patient is on Xarelto, which she states is due to previous DVT/PE. There is mention of atrial fibrillation in the transfer records but it is not clear if she is in that at the present time or not. She does have history of bilateral mastectomy for infiltrating ductal carcinoma. She is seeing Dr. Lucas Monique Jr in this regard. She states that there is residual tumor and she points to the right side of her chest. It is not clear if this is in the lymph nodes are in the chest wall. She lives independently at home. She has a couple of steps. She uses a single- point cane and occasionally uses a walker. The patient's prior level of functioning prior to hospitalization was as follows : She was modified independent for eating and bathing. She was independent for grooming, upper and lower body dressing. She was modified independent for toileting, bed/chair/wheelchair transfers, toilet transfers and walking. She used a rolling walker and a single-point cane. She is modified independent for stairs. Current level of functioning is as follows: She is supervision level for eating and grooming. She requires maximum assistance for bathing, upper and lower body dressing, toileting. She requires minimum assistance for walking. She uses a rolling walker and can walk 75 feet at present. The following medical conditions are noted and require active monitoring and/or management: 1. CHF/cardiomyopathy requiring close monitoring of fluid balance. She is on a 2 L fluid restriction at present. 2. COPD with acute on chronic hypercapnic hypoxemic respiratory failure. She is at risk for further hypoxemia as well as hypercapnia and will require close monitoring. 3. Leukocytosis of unclear etiology. We will monitor closely for wound infection or other evidence of infection. 4. Thoracotomy wound pain. She will require close medical management for adequate pain control. 5. Acute kidney injury: Creatinine has increased from 1.2 up to 1.8. She has required diuresis which likely has contributed to this. The following therapies will be needed: 1. Physical therapy: for transfers and ambulation and stairs. 2. Occupational therapy: for ADL's and transfers. 3. Medical management: for the above conditions. 4. 24 hour Rehabilitation Nursing to monitor and address the following: Close monitoring of oxygen saturations, blood pressure, pain management, monitor wound for adequate healing and to avoid infection. 5. Respiratory therapy: To monitor saturations and respiratory status [facility] Patient Stated Medical History Cerebrovascular Accident No: POSS TIA-PT DENIES STROKE Paralysis No Seizures No Syncope No Glaucoma Yes Macular Degeneration Yes Angina Yes: Denies recent chest pain but has had in past. Cardiac Arrhythmia Yes: afib-> Pacemaker-DEFIB Congestive Heart Failure Yes Hypertension Yes Other Cardiology Yes: DVT- LEGS Chronic Obstructive Pulmonary Yes: [facility]. Disease (COPD) Sleep Apnea No Other Respiratory Yes: pulmonary HTN Gastroesophageal Reflux Yes: well controlled with meds. Disease Hx Renal Disease Yes: STAGE 3 Anemia Yes Osteoarthritis No Other Musculoskeletal No Anesthesia Reactions No Blood Transfusions Yes: DECEMBER 2016 Depression No Post Menopausal Yes Clinic Medical History A-fib (Acute Medical) HTN (hypertension) (Acute Medical) HX: breast cancer (Acute Medical) History of blood clots (Acute Medical) Hyperthyroidism (Acute Medical) Surgical History: 1. Open cholecystectomy with appendectomy in 1974 at [place], [place]. 2. Operation for herniated disc in 1995. 3. Excision of left breast mass in [address] Lewis at [place], [place]. 4. Excision of right breast mass in [address] Lewis at [place], [place]. 5. Knee replacement in 2004. 6. Colonoscopy with polypectomy in [address] Cabrera at [place], [place]. The patient did have an adenomatous colon polyp removed at this time. 7. Cataract operation in 2006. 8. Right inguinal hernia repair in 2007. 9. Implantation of permanent cardiac pacemaker on 01/09/2010. The patient had sick sinus syndrome. 10. Implantation of cardiac defibrillator, pacemaker on 10/09/2014. 11. Bilateral mastectomy with bilateral sentinel lymph node biopsies on 12/19/[address] Cabrera at [place], [place]. Postoperative diagnosis was bilateral breast carcinoma (infiltrating ductal carcinoma). 12. Revision of right mastectomy incision and excision of area of flap necrosis on [address] Cabrera at [place], [place]. The patient did have a small area of flap necrosis at the right mastectomy incision. 13. Left carpal tunnel release and left middle finger trigger finger release on by Dr. Garrido at [place], [place]. Postoperative diagnoses were left carpal tunnel syndrome and left middle finger trigger finger. 14. Esophagogastroduodenoscopy on 12/25/[address] Lewis at [facility]. Postoperative diagnoses were anemia, history of black stools of 4 days' duration during the previous week, upper abdominal pain and gastroesophageal reflux disease. Discharge diagnoses were iron- deficiency anemia, history of DVT/pulmonary embolus, coronary artery disease, chronic obstructive pulmonary disease and history of breast cancer. 15. Current left thoracotomy for extraction of coronary sinus lead and placement of ventricular lead. 16. Previous placement of IVC filter 2010. 17. EGD by Dr. Lewis November 2016: Normal findings. 18. Colonoscopy with polypectomy-tubular adenoma with low-grade dysplasia December 2016 Family History: Father age 63 from heart disease. Mother age 84 from coronary artery disease and "heart failure." Had 9 brothers and sisters. She has only 4 sisters left. All them had either cardiac disease or malignancy. One sister of ovarian cancer. - Social History Smoking status: Never smoker Substance use type: does not use Alcohol intake: never Alcohol intake frequency: does not drink Housing: house Household members: none Current occupational status: retired Current residence: Apartment/Private Home Social history: Patient lives independently in her own home. . She lives alone. Review of Systems - Constitutional Constitutional: Present: anorexia (recently she has had some nausea and anorexia.), weight loss (she has had a diuresis resulting in some weight loss. Baseline weight 221 pounds. Currently 213 pounds). Absent: chills, fatigue, fever(s), headache(s), lethargy, malaise, night sweats, weakness, weight gain - EESDT Eyes: Absent: blurry vision, change in vision, diplopia Mouth/Throat: Absent: changes in swallowing, painful swallowing, change in taste , bleeding gums, change in voice - Cardiovascular Cardiovascular: Present: chest pain (chest pain related to recent thoracotomy.) . Absent: palpitations, syncope, dyspnea on exertion, orthopnea, edema, cyanosis, heart murmur Rhythm: Present: regular rhythm Vascular: Absent: intermittent claudication, pedal edema, unilateral swelling - Respiratory Respiratory: Present: cough (has occasional cough without sputum.), dyspnea on exertion. Absent: dyspnea, hemoptysis, wheezing, pain on inspiration, chest congestion, excessive phlegm production - Gastrointestinal Gastrointestinal: Present: nausea, vomiting (has had recent nausea and vomiting. ). Absent: abdominal pain, change in bowel habits, constipation, diarrhea, dyspepsia, dysphagia, early satiety, hematochezia, melena - Genitourinary Genitourinary: Present: urinary incontinence (chronic urinary incontinence which she attributes to diuresis.) - Musculoskeletal Musculoskeletal: Absent: abnormal gait, arthralgias, back pain, joint swelling, limited range of motion, muscle weakness - Integumentary/Breasts Integumentary: Absent: alopecia, erythema, lesions, pruritus, rash, jaundice - Neurological Neurological: Absent: abnormal gait, abnormal movements, abnormal speech, confusion, convulsions, dizziness, focal weakness, frequent falls, headache(s), loss of vision, memory loss, numbness, paresthesias, tremor(s) - Psychiatric Psychiatric: Absent: abnormal sleep pattern, anxiety, depression - Endocrine Endocrine: Absent: cold intolerance, flushing, heat intolerance, palpitations - Hematologic/Lymphatic Hematologic/Lymphatic: Absent: easy bleeding, easy bruising, lymphadenopathy - Allergic/Immunologic Allergic/Immunologic: Absent: urticaria Medications Home Medications Medication Instructions Recorded Confirmed Type Amitriptyline HCl 50 mg PO HS #0 05/19/10 01/22/17 History Allopurinol 300 mg PO HS #0 11/16/15 01/22/17 History Latanoprost 1 drop BOTH EYES HS #0 11/16/15 01/22/17 History Levothyroxine Sodium 75 mcg PO 0600 #0 11/16/15 01/22/17 History Metoprolol Tartrate 25 mg PO BID #0 11/16/15 01/22/17 History Triamcinolone 0.1% Cream 15 G 1 applic TOP BID #0 11/16/15 01/22/17 History [Kenalog] Acetaminophen [Tylenol Extra 1 - 2 tab PO Q6H PRN #0 tab 12/18/15 01/22/17 History Strength] Calcium Citrate 600 mg PO BID #0 09/01/16 01/22/17 History Cholecalciferol (Vitamin D3) 1 tab PO BID #0 09/01/16 01/22/17 History [Vitamin D-400] Digoxin [Digox] 1 tab PO DAILY #0 09/01/16 01/22/17 History Nitroglycerin [Nitrostat] 1 tab SL PRN #0 tab 09/01/16 01/22/17 History Rivaroxaban [Xarelto] 1 tab PO 1800 #0 09/01/16 01/22/17 History Spironolactone 25 mg PO BID #0 tab 12/24/16 01/22/17 History sacubitril 24 mg-valsartan 26 mg 1 tab PO BID 01/06/17 01/22/17 History tablet Bumetanide Tab [Bumex Tab] 1 - 2 tab PO DAILY 01/21/17 01/22/17 History Letrozole 2.5 mg PO DAILY 01/21/17 01/22/17 History Omeprazole 40 mg PO DAILY 01/21/17 01/22/17 History Vit A/Vit C/Vit E/Zinc/Copper 1 each PO DAILY 01/21/17 01/22/17 History [Preservision Areds Tablet] Allergies Allergy/AdvReac Type Severity Reaction Status Date / Time codeine Allergy Severe COULDN'T Verified 01/22/17 07:28 BREATH,HEART RACING Results IRU - Labs Labs: Extensive review of outside records was performed. Exam - Constitutional Present: mild distress, well nourished, well developed, obese, cooperative - Routine HEENT Exam Head: Present: normocephalic, atraumatic. Absent: cushingoid faces, abrasion, laceration, hematoma Eye: Present: EOMI, PERRL. Absent: conjunctival icterus, scleral injection, periorbital swelling, nystagmus ENT: Present: mucous membranes moist, oropharynx clear - Routine Neck Exam Present: supple, full ROM, trachea midline. Absent: lymphadenopathy, thyromegaly, tenderness, swelling - Routine Chest/Breast/Axilla Exam Chest wall: Present: tenderness (left-sided thoracotomy wound inspected. Noninflamed. Tender.). Absent: mass Axillae: Absent: lymphadenopathy, mass - Routine Respiratory Exam Present: CTA bilaterally. Absent: accessory muscle use, decreased breath sounds , prolonged expiratory phase, rales, respiratory distress, rhonchi, stridor, wheezes, crackles, distant breath sounds - Routine Cardiovascular Exam Present: RRR, S1, S2, murmur (has a systolic murmur grade 2-3/6 left sternal border. No gallop.). Absent: gallop, S3, S4, click, irregular rhythm - Routine Abdominal Exam Present: soft, normoactive bowel sounds, tenderness (does have some diffuse abdominal tenderness. No rebound.), non distended. Absent: rebound, guarding, firm, rigid, organomegaly, mass, hernia, wound - Routine Extremities Exam Present: no edema, non tender, pulses intact, normal capillary refill. Absent: cyanosis, clubbing - Routine Back/Spine/Pelvis Exam Back/Spine: Present: full ROM. Absent: scoliosis, kyphosis - Routine Skin Exam Present: intact, dry, warm. Absent: cyanosis, erythema, pallor, mottling, petechiae, urticaria, lesions, jaundice - Routine Neurological Exam Present: alert, oriented X3, CN II-XII intact, moving all extremities, normal speech - Routine Psychiatric Exam Present: normal affect, normal thought process, cooperative, good insight, good judgment. Absent: depressed, anxious Sepsis Assessment - Evaluation Confirmed Suspected Infection: No SIRS Criteria: none IRU A/P (1) Cardiomyopathy Qualifiers: Cardiomyopathy type: unspecified Qualified Code(s): I42.9 - Cardiomyopathy , unspecified Current visit: Yes Status: Chronic Ejection fraction not known at present. She sees Dr. Gonzalez in [place]. Recent pacemaker/defibrillator lead was removed from coronary sinus and new left ventricular lead placed. She is at risk for wound infection, bleeding, dysrhythmias etc. (2) Acute kidney injury (nontraumatic) Current visit: Yes Status: Acute Creatinine has increased from 1.2 up to 1.8. This is likely due to diuresis. Her creatinine will be monitored carefully. (3) Leukocytosis Qualifiers: Leukocytosis type: other Qualified Code(s): D72.828 - Other elevated white blood cell count Current visit: Yes Status: Acute White count has been running around 14,000. Etiology not clear. To our knowledge she has not been on steroids. No evidence of infection. (4) Acute on chronic respiratory failure with hypoxia and hypercapnia Current visit: Yes Status: Acute Appears to have chronic respiratory failure with hypoxemia for which she uses oxygen at home at night. Currently has superimposed acute hypercapnic hypoxemic respiratory failure as evidenced by the need for daytime oxygen as well. (5) COPD (chronic obstructive pulmonary disease) Qualifiers: COPD type: unspecified COPD Qualified Code(s): J44.9 - Chronic obstructive pulmonary disease, unspecified Current visit: Yes Status: Chronic DVT Prophylaxis: SCD's, Xarelto Resuscitation Status: Full Code - Course Hospital Course: Bryant Zavala MD: - Interventions to Obtain Goals PT Treatment Plan: Balance/Proprioception, Functional Activities, Gait Training , Patient/Family Education OT Treatment Plan: ADL (Basic Care), Balance Training, Pt./Family Education Goals Progress/Modifications: An individualized intensive program of occupational therapy and physical therapy will be designed for this patient. She has significant pain in the left thoracotomy site. In addition she has elevated white blood cell count and new acute kidney injury. She will be monitored carefully for her heart failure as well as the other described problems.
--- NOTE | 2017-06-23 18:08 | IRU 24Hr Post Admit Eval ---
24 Hr Post Admission Physical - Relevant Changes Relevant Changes: No Reviewed: I have reviewed the patient's information and concur with the finding and results of the pre-admission screen. Certification: I certify the patient for rehabilitation. - Patient Condition (1) Cardiomyopathy Status: Chronic Qualifiers: Cardiomyopathy type: unspecified Qualified Code(s): I42.9 - Cardiomyopathy , unspecified Code(s): I42.9 - Cardiomyopathy, unspecified Classification: Present on IRF Admission, IRF Tx That Should Address Diagnosis, Diagnosis Requiring Medical Follow Up (2) Acute kidney injury (nontraumatic) Status: Acute Code(s): N17.9 - Acute kidney failure, unspecified Classification: Present on IRF Admission, IRF Tx That Should Address Diagnosis, Diagnosis Requiring Medical Follow Up (3) Leukocytosis Status: Acute Qualifiers: Leukocytosis type: other Qualified Code(s): D72.828 - Other elevated white blood cell count Code(s): D72.829 - Elevated white blood cell count, unspecified Classification: Present on IRF Admission, Diagnosis Requiring Medical Follow Up (4) Acute on chronic respiratory failure with hypoxia and hypercapnia Status: Acute Code(s): J96.21 - Acute and chronic respiratory failure with hypoxia; J96.22 - Acute and chronic respiratory failure with hypercapnia Classification: Present on IRF Admission, IRF Tx That Should Address Diagnosis, Diagnosis Requiring Medical Follow Up (5) COPD (chronic obstructive pulmonary disease) Status: Chronic Qualifiers: COPD type: unspecified COPD Qualified Code(s): J44.9 - Chronic obstructive pulmonary disease, unspecified Code(s): J44.9 - Chronic obstructive pulmonary disease, unspecified Classification: Present on IRF Admission, IRF Tx That Should Address Diagnosis, Diagnosis Requiring Medical Follow Up - Prior Functional Status Lives With: Alone Residence Type: Apartment/Private Home Assitive Devices: Small Base Quad Cane, Front Wheeled Walker Prior Functional Status: Indep. at home or school, Indep. w/ IADL - Current Functional Status Current Level of Function: The patient's prior level of functioning prior to hospitalization was as follows : She was modified independent for eating and bathing. She was independent for grooming, upper and lower body dressing. She was modified independent for toileting, bed/chair/wheelchair transfers, toilet transfers and walking. She used a rolling walker and a single-point cane. She is modified independent for stairs. Failed Alternative Therapy: Arrived from Acute Care Patient Requirements: The patient requires oversight by rehabilitation physician to manage their rehabilitation treatment plan and multidisciplinary approach to care that can only be provided in an IRF and requires a multidisciplinary approach to care, provided by professional PTs, OTs, STs, dieticians, RTs, rehabilitation nurses and is not available in lesser levels of care. Limitations Req: Mobility Impairment, ADL Impairment, Respiratory Impairment Physical Therapy Minutes: 90 Occupational Therapy Minutes: 90 Therapy: The patient is to receive therapy at least 5 days a week. - Complications/Comorbidities Impact on Functional Outcomes: Pain in left thoracotomy side as well as her underlying COPD and heart failure will likely impact her functional outcome. Barriers to Discharge: Weakness, Balance, Endurance, Pain Control, Medical Limitation - Plan to Avoid Complications Plan to Avoid Complications: The patient cannot receive this care in a lesser intensive setting such as Custodial or Outpatient Therapy due to the patient requiring the following : Close monitoring of oxygen saturations, evidence of heart failure, pain management.
[2017-06-23] MEDS: RIVAROXABAN 15 MG TABLET PO SCH (18:56)
[2017-06-23] MEDS ORDERED: HYDROCODONE/APAP 5mg/325mg TABLET PO PRN (19:56)
[2017-06-23] MEDS ORDERED: ONDANSETRON ODT 4 MG TABLET PO PRN (19:58)
[2017-06-23] MEDS ORDERED: NITROGLYCERIN 0.4 MG SUBLINGUAL TABLET SL SCH (20:00)
[2017-06-23 20:04] VITALS: BMI 37.8
[2017-06-23] MEDS ORDERED: CALCIUM CITRATE 950 MG TABLET PO SCH (21:00)
[2017-06-23] MEDS: SACUBITRIL/VALSARTAN 24/26mg TABLET PO SCH (21:47)
[2017-06-23] MEDS: AMITRIPTYLINE 50 MG TABLET PO SCH (21:50)
[2017-06-23] MEDS: ALLOPURINOL 300 MG TABLET PO SCH (21:51)
[2017-06-23] MEDS: DORZOLAMIDE 2% EYE DROPS 10ml EACH EYE SCH (21:55)
[2017-06-23] MEDS: POLYETHYL GLYCOL 3350 17gm PACKET PO SCH (21:55)
[2017-06-23] MEDS: TRIAMCINOLONE 0.1% CREAM 15 G TUBE TOP SCH (21:56)
[2017-06-23] MEDS: DOCUSATE SODIUM 100 MG CAPSULE PO SCH (22:10)
[2017-06-24] MEDS: LEVOTHYROXINE 75 MCG TABLET PO SCH (06:11)
[2017-06-24] MEDS: ACETAMINOPHEN 325 MG TABLET PO PRN (06:14)
[2017-06-24] MEDS: LATANOPROST 0.005% EYE DROPS 2.5ml RIGHT EYE SCH ×2 (08:20→21:07)
[2017-06-24] MEDS: MULTI-VIT + MINERAL (Opti-gen) TABLET PO SCH ×3 (08:20→21:12)
[2017-06-24] MEDS: FERROUS SULFATE 324 MG TABLET PO SCH ×3 (08:20→21:05)
--- NOTE | 2017-06-24 08:39 | Consult Note ---
<SergoPadmaja D - Last Filed: 06/24/17 09:27> Consult Information - Data of Consult Consult date: 06/24/17 Requesting Physician: Bryant Zavala MD Primary Care Provider: Alfredo Montes DO Family Provider: Alfredo Montes DO - Consult Narrative Reason for consult: MAURI, cardiomyopathy, COPD History of present illness: Kim Mcgraw is a 76 y/o lady seen in consultation from Dr. Zavala for med mgt of COPD (nocturnal O2 5-6L at baseline), GOMEZ/OHS (supposed to be on home BiPAP) , CHF, cardiomyopathy, A-fib, CKD, PVD, hx of DVT on xarelto, HTN. She was admitted to [facility] for failure of coronary sinus lead. On 06/16/17 Dr. Carson Wild took her to the OR for left anterior thoracotomy for left ventricular epicardial lead placement, extraction of coronary sinus lead and replacement of biventricular automatic implantable cardioverter defibrillator. She had a chest tube that was removed on POD #3. Xarelto was restarted after CT was discontinued. Postop she developed hypercapnic/hypoxic resp failure and was started on BiPAP at night (16/8 R 12). Providers at [facility] suggested evaluation for a home vent mask. She had postop confusion, which seemed to be more prominent when the BiPAP was not used at night. She required IV diuresis with Bumex postop, then later developed MAURI - on 06/19 her BUN was 26 and Cr 1.1; creatinine peaked at 1.8. Admission creatinine was 1.3. On day of discharge BUN was 70 and cr was 1.5. She also had mild persistent leukocytosis ranging from 11-14, but no other signs of systemic infection were noted. Hgb remained stable and was 12 on day of discharge from [facility]. She also had mild hyponatremia (130) on day of discharge. She is on a 2L fluid restriction. As a result of this >week long hospitalization, Kim developed myopathy and had difficulty with postop pain, which impacts activity level; her underlying COPD and cardiomyopathy likely also played a role in her debility. Kim was medically stable for transfer to [facility] on 06/23/17. She was seen while working with therapy in the morning of 06/24/17. She just tried walking without oxygen, but desaturated. She denied feeling short of breath with exertion and denies feeling short of breath at rest. She uses oxygen at night at home but never during the day. She has tried BiPAP but cannot breathe well with it on, and therefore has chosen not to use it at home. Her left chest wall incisional pain is only bothersome with activity - its tolerable at rest. She feels weak in general but denies dizziness, lightheadedness, abnormal paresthesias (has chronic numbness/tingling to the 3rd and 4th fingers on her right hand), or unilateral weakness. She notes a "little cough" this morning, but denies fever/ chills. She denies new dysphagia or sore throat. She always has a little problems swallowing b/c of the remaining right thyroid lobe. She wears dentures. She notes occasional sharp abdominal pains, that usually occur in the upper portion of her abdomen. She's had these pains ever since her mastectomies and attributes these brief periods of pain to "mutilation from my surgeries". She denies nausea, vomiting, constipation, diarrhea. She has been eating fairly well. She denies any dysuria or problems urinating. She's on Xarelto and tends to bruise easily. She denies calf pain or significant leg swelling. PFSH COPD Pulmonary HTN Chronic respiratory failure with hypoxia and hypercapnia; GOMEZ/OHS -nocturnal O2 5-6L -supposed to be on BiPAP at home but doesn't use Cardiomyopathy CHF A-fib History of DVT - anticoagulated on Xarelto HTN PVD CKD stage III HX: breast cancer Hyperthyroidism Anemia requiring PRBC transfusion Obesity BMI 37.9 Surgical History: 1. Open cholecystectomy with appendectomy in 1974 at [place], [place]. 2. Operation for herniated disc in 1995. 3. Excision of left breast mass in [address] Lewis at [place], [place]. 4. Excision of right breast mass in [address] Lewis at [place], [place]. 5. Knee replacement in 2004. 6. Colonoscopy with polypectomy in [address] Cabrera at at [place], [place]. The patient did have an adenomatous colon polyp removed at this time. 7. Cataract operation in 2006. 8. Right inguinal hernia repair in 2007. 9. Implantation of permanent cardiac pacemaker on 01/09/2010. The patient had sick sinus syndrome. 10. Implantation of cardiac defibrillator, pacemaker on 10/09/2014. 11. Bilateral mastectomy with bilateral sentinel lymph node biopsies on 12/19/[address] Cabrera at at [place], [place]. Postoperative diagnosis was bilateral breast carcinoma (infiltrating ductal carcinoma). 12. Revision of right mastectomy incision and excision of area of flap necrosis on [address] Cabrera at [place], [place]. The patient did have a small area of flap necrosis at the right mastectomy incision. 13. Left carpal tunnel release and left middle finger trigger finger release on by Dr. Garrido at [place], [place]. Postoperative diagnoses were left carpal tunnel syndrome and left middle finger trigger finger. 14. Esophagogastroduodenoscopy on 12/25/[address] Lewis at at [place], [place]. Postoperative diagnoses were anemia, history of black stools of 4 days' duration during the previous week, upper abdominal pain and gastroesophageal reflux disease. Discharge diagnoses were iron- deficiency anemia, history of DVT/pulmonary embolus, coronary artery disease, chronic obstructive pulmonary disease and history of breast cancer. 15. Left thoracotomy for extraction of coronary sinus lead and placement of ventricular lead 06/16/17 Dr. Carson Wild. 16. Previous placement of IVC filter 2010. 17. EGD by Dr. Lewis November 2016: Normal findings. 18. Colonoscopy with polypectomy-tubular adenoma with low-grade dysplasia December 2016 Dr. Lewis. 19. L4-L5 back fusion. 20. Left hemithyroidectomy in 1998 - benign Family History: Father - at age 63 of heart disease Mother - at age 84 from heart failure and CAD Kim has 9 siblings; 5 have from cancer or heart disease. - Social History Smoking status: Never smoker second hand exposure: Yes ( was a heavy smoker) Substance use type: does not use Alcohol intake frequency: does not drink Household members: other () Current residence: Apartment/Private Home Social history: PCP - Alfredo Montes Review of Systems All systems PM: 10-point ROS was reviewed, no additional remarkable complaints except - Constitutional Constitutional: Present: as per HPI - EENMT Eyes: Absent: change in vision Balance: Present: as per HPI Nose: Present: as per HPI Mouth/Throat: Present: as per HPI - Cardiovascular Cardiovascular: Present: as per HPI Vascular: Present: see HPI - Respiratory Respiratory: Present: as per HPI - Gastrointestinal Gastrointestinal: Present: as per HPI - Genitourinary Genitourinary: Present: as per HPI - Musculoskeletal Musculoskeletal: Present: as per HPI - Integumentary/Breasts Integumentary: Present: wounds (left chest) - Neurological Neurological: Present: as per HPI - Psychiatric Psychiatric: Absent: depression - Endocrine Endocrine: Absent: flushing, palpitations - Hematologic/Lymphatic Hematologic/Lymphatic: Present: as per HPI Medications Home Medications Medication Instructions Recorded Confirmed Type Amitriptyline HCl 25 mg PO HS #0 05/19/10 06/23/17 History Allopurinol 300 mg PO HS #0 11/16/15 06/23/17 History Latanoprost 1 drop BOTH EYES HS #0 11/16/15 06/23/17 History Levothyroxine Sodium 75 mcg PO 0600 #0 11/16/15 06/23/17 History Metoprolol Tartrate 25 mg PO HS #0 11/16/15 06/23/17 History Triamcinolone 0.1% Cream 15 G 1 applicatio TOP BID #0 11/16/15 06/23/17 History [Kenalog] Calcium Citrate 600 mg PO BID #0 09/01/16 06/23/17 History Cholecalciferol (Vitamin D3) 1 tab PO BID #0 09/01/16 06/23/17 History [Vitamin D-400] Digoxin [Digox] 1 tab PO DAILY #0 09/01/16 06/23/17 History Nitroglycerin [Nitrostat] 1 tab SL PRN #0 tab 09/01/16 06/23/17 History sacubitril 24 mg-valsartan 26 mg 1 tab PO BID 01/06/17 06/23/17 History tablet Letrozole 2.5 mg PO DAILY 01/21/17 06/23/17 History Omeprazole 40 mg PO DAILY 01/21/17 06/23/17 History Acetaminophen [Tylenol] 650 mg PO Q4H PRN 06/23/17 06/23/17 History Aspirin *EC* [Ecotrin] 1 tab PO DAILY 06/23/17 06/23/17 History Docusate Sodium [Colace] 1 cap PO BID 06/23/17 06/23/17 History Dorzolamide Eye Drops [Trusopt] 1 drop EACH EYE BID 06/23/17 06/23/17 History Ferrous Sulfate 1 tab PO BID 06/23/17 06/23/17 History Hydrocodone/APAP 5/325 [[place] 1 - 2 tab PO Q4H PRN 06/23/17 06/23/17 History 5/325] Mv-Min/FA/Vit K/Lycop/Lut/Zeax 1 each PO BID 06/23/17 06/23/17 History [Ocuvite Eye + Multi Tablet] Ondansetron [Zofran Odt] 1 tab PO Q6HR PRN 06/23/17 06/23/17 History PEG 3350 17gm PACKET [Miralax] 17 gm PO HS 06/23/17 06/23/17 History Rivaroxaban [Xarelto] 15 mg PO WS 06/23/17 06/23/17 History Allergies Allergy/AdvReac Type Severity Reaction Status Date / Time codeine Allergy Severe COULDN'T Verified 01/22/17 07:28 BREATH,HEART RACING adhesive tape AdvReac Rash Verified 06/24/17 01:45 Exam Vital Signs: Temperature 98.1 F 06/23/17 19:52 Pulse Rate 86 06/23/17 19:52 Respiratory Rate 20 06/23/17 19:52 Blood Pressure 125/63 06/23/17 19:52 Pulse Oximetry 99 06/23/17 19:52 Height/Weight/BMI: Height 1.6 m Weight 97 kg Body Mass Index 37.8 - Constitutional Present: no acute distress, well nourished, well developed, obese - Routine HEENT Exam Head: Present: normocephalic Eye: Present: PERRL. Absent: conjunctival icterus, scleral injection ENT: Present: mucous membranes moist, oropharynx clear, dentition normal ( dentures) - Routine Neck Exam Present: supple - Routine Respiratory Exam Present: CTA bilaterally - Routine Cardiovascular Exam Present: S1, S2, murmur (4/6) - Routine Abdominal Exam Present: soft, normoactive bowel sounds, non distended, non tender - Routine Extremities Exam Present: edema (trace). Absent: calf tenderness - Routine Skin Exam Present: intact, dry, warm, wounds (left anterior chest incision healing well; left chest tube incision with mild scabbing but healing well) - Routine Neurological Exam Present: alert, oriented X3, moving all extremities, vision grossly intact, hearing grossly intact, normal speech. Absent: motor deficit, facial asymmetry - Routine Psychiatric Exam Present: normal affect, normal thought process, cooperative Results - Labs CBC & Chem 7: 06/24/17 04:16 06/24/17 04:16 Assessment and Plan (1) Acute kidney injury (nontraumatic) Current visit: Yes Status: Acute (2) Leukocytosis Current visit: Yes Status: Acute (3) Acute on chronic respiratory failure with hypoxia and hypercapnia Current visit: Yes Status: Acute Assessment and Plan: IMPRESSION S/P Left anterior thoracotomy for left ventricular epicardial lead placement, extraction of coronary sinus lead and replacement of biventricular automatic implantable cardioverter defibrillator on 06/16/17 - Dr. Carson Wild Postop complications included MAURI (cr peaked at 1.8); acute hypercapnic and hypoxic resp failure; confusion (poss r/t not using BiPAP HS); hyponatremia (130 ); persistent leukocytosis COPD Pulmonary HTN Chronic respiratory failure with hypoxia and hypercapnia; GOMEZ/OHS -nocturnal O2 5-6L -supposed to be on BiPAP at home but doesn't use Cardiomyopathy CHF A-fib History of DVT - anticoagulated on Xarelto HTN PVD CKD stage III HX: breast cancer Hyperthyroidism Anemia requiring PRBC transfusion Obesity BMI 37.9 PLAN Leukocytosis - afebrile; no evidence of infection. Will check CXR (d/t hypoxia + leukocytosis), UA. MAURI - improvement noted. BUN 73 and cr 1.3 on admit. Had been diuresed with IV followed by PO Bumex - given cardiomyopathy and CHF she may need add'l diuresis. Hyponatremia - resolved; Na 136. Macrocytic anemia - mild. Hgb remained stable at C. Cont ferrous sulfate. COPD/GOMEZ/Resp failure - wean daytime oxygen as able; BiPAP at night, as tolerated. DuoNeb PRN. A-fib; hx DVT - cont Xarelto. Heart sounded regular on exam. Rate in the 80s. HTN; A-fib - cont digoxin, metoprolol. BP stable. Pain control per attending. Thank you for this consultation. We will follow Kim along with you during her hospital course. Outside records reviewed in detail. DVT Prophylaxis: Xarelto GI Prophylaxis: other (Prilosec) Hospital Course Summary Disclaimer: The visit summary below is not to be considered part of the above Progress Note. Hospital Course: 06/24/17 09:52 IMPRESSION S/P Left anterior thoracotomy for left ventricular epicardial lead placement, extraction of coronary sinus lead and replacement of biventricular automatic implantable cardioverter defibrillator on 06/16/17 - Dr. Carson Wild Postop complications included MAURI (cr peaked at 1.8); acute hypercapnic and hypoxic resp failure; confusion (poss r/t not using BiPAP HS); hyponatremia (130 ); persistent leukocytosis COPD Pulmonary HTN Chronic respiratory failure with hypoxia and hypercapnia; GOMEZ/OHS -nocturnal O2 5-6L -supposed to be on BiPAP at home but doesn't use Cardiomyopathy CHF A-fib History of DVT - anticoagulated on Xarelto HTN PVD CKD stage III HX: breast cancer Hyperthyroidism Anemia requiring PRBC transfusion Obesity BMI 37.9 PLAN Leukocytosis - afebrile; no evidence of infection. Will check CXR (d/t hypoxia + leukocytosis), UA. MAURI - improvement noted. BUN 73 and cr 1.3 on admit. Had been diuresed with IV followed by PO Bumex - given cardiomyopathy and CHF she may need add'l diuresis. Hyponatremia - resolved; Na 136. Macrocytic anemia - mild. Hgb remained stable at C. Cont ferrous sulfate. COPD/GOMEZ/Resp failure - wean daytime oxygen as able; BiPAP at night, as tolerated. DuoNeb PRN. A-fib; hx DVT - cont Xarelto. Heart sounded regular on exam. Rate in the 80s. HTN; A-fib - cont digoxin, metoprolol. BP stable. Pain control per attending. <Avi Yoder - Last Filed: 06/24/17 17:16> Consult Information - Data of Consult Requesting Physician: Bryant Zavala MD Primary Care Provider: Alfredo Montes DO Family Provider: Alfredo Montes DO [facility] Patient Stated Medical History Cerebrovascular Accident No: POSS TIA-PT DENIES STROKE Paralysis No Seizures No Syncope No Glaucoma Yes Macular Degeneration Yes Angina Yes: Denies recent chest pain but has had in past. Cardiac Arrhythmia Yes: afib-> Pacemaker-DEFIB Congestive Heart Failure Yes Hypertension Yes Other Cardiology Yes: DVT- LEGS Chronic Obstructive Pulmonary Yes: 5L O2 at [facility]. Disease (COPD) Sleep Apnea No Other Respiratory Yes: pulmonary HTN Constipation No Gastroesophageal Reflux Yes: well controlled with meds. Disease Hx Incontinence No Hx Renal Disease Yes: STAGE 3 Anemia Yes Osteoarthritis No Other Musculoskeletal No Anesthesia Reactions No Blood Transfusions Yes: DECEMBER 2016 Depression No Post Menopausal Yes Clinic Medical History Cardiomyopathy (Chronic Medical) Acute kidney injury (nontraumatic) (Acute Medical) Leukocytosis (Acute Medical) Acute on chronic respiratory failure with hypoxia and hypercapnia (Acute Medical ) COPD (chronic obstructive pulmonary disease) (Chronic Medical) A-fib (Acute Medical) HTN (hypertension) (Acute Medical) HX: breast cancer (Acute Medical) History of blood clots (Acute Medical) Hyperthyroidism (Acute Medical) Exam Vital Signs: Temperature 98.0 F 06/24/17 16:21 Pulse Rate 90 06/24/17 16:21 Respiratory Rate 18 06/24/17 16:21 Blood Pressure 107/49 06/24/17 16:21 Pulse Oximetry 100 06/24/17 16:21 Height/Weight/BMI: Height 1.6 m Weight 97 kg Body Mass Index 37.8 Results - Labs CBC & Chem 7: 06/24/17 04:16 06/24/17 04:16 Assessment and Plan (1) Acute kidney injury (nontraumatic) Current visit: Yes Status: Acute (2) Leukocytosis Current visit: Yes Status: Acute (3) Acute on chronic respiratory failure with hypoxia and hypercapnia Current visit: Yes Status: Acute Assessment and Plan: IMPRESSION S/P Left anterior thoracotomy for left ventricular epicardial lead placement, extraction of coronary sinus lead and replacement of biventricular automatic implantable cardioverter defibrillator on 06/16/17 - Dr. Carson Wild Postop complications included MAURI (cr peaked at 1.8); acute hypercapnic and hypoxic resp failure; confusion (poss r/t not using BiPAP HS); hyponatremia (130 ); persistent leukocytosis COPD Pulmonary HTN Chronic respiratory failure with hypoxia and hypercapnia; GOMEZ/OHS -nocturnal O2 5-6L -supposed to be on BiPAP at home but doesn't use Cardiomyopathy CHF A-fib History of DVT - anticoagulated on Xarelto HTN PVD CKD stage III HX: breast cancer Hyperthyroidism Anemia requiring PRBC transfusion Obesity BMI 37.9 Have independently interviewed and examined pt. Chart reviewed. Case discussed with my [employer]. Above care plan developed with my supervision; agree with above. Admitted to IRU for rehabilitation post thoracotomy. Doing very well this afternoon. Had good therapy session this am-tolerated well. Breathing feels stable-not having increased SOA or cough. No chest pressure or pain. Eating well. Bowels stable. Pain controlled. Encourage to work to have strength and abilities return. Lungs: decreased breath sound, no distress CV: regular sounding with murmur. AB: soft nt/nd BD decreased MSE: awake alert appropriate Plan: Agree with admission of patient to IRU to maximize functional status. Continue with CV medications. Monitor volume status, BP, weight. Will need to intermittently monitor lab secondary to medication use and anemia. Encourage participation with therapy to maximize functional status. Medically stable for IRU floor activities. Hospital Course Summary Disclaimer: The visit summary below is not to be considered part of the above Progress Note.
[2017-06-24] MEDS: SACUBITRIL/VALSARTAN 24/26mg TABLET PO SCH ×2 (09:44→21:08)
[2017-06-24] MEDS: OMEPRAZOLE 20 MG CAPSULE PO SCH (09:45)
[2017-06-24] MEDS: DOCUSATE SODIUM 100 MG CAPSULE PO SCH ×2 (09:46→21:04)
[2017-06-24] MEDS: DIGOXIN 125 MCG TABLET PO SCH (09:46)
[2017-06-24] MEDS: ASPIRIN *EC* 81 MG TABLET PO SCH (09:46)
[2017-06-24] MEDS: LETROZOLE 2.5 MG TABLET PO SCH (09:46)
[2017-06-24] MEDS: CALCIUM CITRATE 950 MG TABLET PO SCH ×2 (09:46→21:03)
[2017-06-24] MEDS ORDERED: ALBUTEROL/IPRATROPIUM 2.5mg-0.5mg/3ml NEB AEROSOL PRN (09:48)
[2017-06-24] MEDS: TRIAMCINOLONE 0.1% CREAM 15 G TUBE TOP SCH ×2 (11:27→21:10)
[2017-06-24] MEDS: DORZOLAMIDE 2% EYE DROPS 10ml EACH EYE SCH ×2 (11:27→21:05)
[2017-06-24] MEDS ORDERED: RIVAROXABAN 15 MG TABLET PO SCH (17:30)
[2017-06-24] MEDS: RIVAROXABAN 15 MG TABLET PO SCH (17:57)
[2017-06-24] MEDS: ALLOPURINOL 300 MG TABLET PO SCH (21:01)
[2017-06-24] MEDS: AMITRIPTYLINE 50 MG TABLET PO SCH (21:02)
[2017-06-24] MEDS: POLYETHYL GLYCOL 3350 17gm PACKET PO SCH (21:11)
[2017-06-25] MEDS: LEVOTHYROXINE 75 MCG TABLET PO SCH (06:06)
[2017-06-25] MEDS: ACETAMINOPHEN 325 MG TABLET PO PRN (06:06)
[2017-06-25] MEDS: OMEPRAZOLE 20 MG CAPSULE PO SCH (06:07)
--- NOTE | 2017-06-25 08:12 | IRU Plan of Care ---
[facility] Overall Plan of Care - Date Date: 06/25/17 - Patient Impairments (1) Cardiomyopathy Qualifiers: Cardiomyopathy type: unspecified Qualified Code(s): I42.9 - Cardiomyopathy , unspecified Code(s): I42.9 - Cardiomyopathy, unspecified Status: Chronic Classification: Present on IRF Admission, IRF Tx That Should Address Diagnosis, Diagnosis Requiring Medical Follow Up (2) Acute kidney injury (nontraumatic) Code(s): N17.9 - Acute kidney failure, unspecified Status: Acute Classification: Present on IRF Admission, IRF Tx That Should Address Diagnosis, Diagnosis Requiring Medical Follow Up (3) Acute on chronic respiratory failure with hypoxia and hypercapnia Code(s): J96.21 - Acute and chronic respiratory failure with hypoxia; J96.22 - Acute and chronic respiratory failure with hypercapnia Status: Acute Classification: Present on IRF Admission, IRF Tx That Should Address Diagnosis, Diagnosis Requiring Medical Follow Up (4) Leukocytosis Qualifiers: Leukocytosis type: other Qualified Code(s): D72.828 - Other elevated white blood cell count Code(s): D72.829 - Elevated white blood cell count, unspecified Status: Acute Classification: Present on IRF Admission, Diagnosis Requiring Medical Follow Up (5) COPD (chronic obstructive pulmonary disease) Qualifiers: COPD type: unspecified COPD Qualified Code(s): J44.9 - Chronic obstructive pulmonary disease, unspecified Code(s): J44.9 - Chronic obstructive pulmonary disease, unspecified Status: Chronic Classification: Present on IRF Admission, IRF Tx That Should Address Diagnosis, Diagnosis Requiring Medical Follow Up - Relevant Changes Relevant Changes: No Reviewed: I have reviewed the patient's information and concur with the finding and results of the pre-admission screen. Certification: I certify the patient for rehabilitation. - Medical Prognosis Medical Prognosis: Fair Vital Signs: Last Vital Signs Temp 98.5 F 06/24/17 21:34 Pulse 86 06/24/17 21:34 Resp 20 06/24/17 21:34 BP 103/56 06/24/17 21:34 Pulse Ox 92 06/24/17 21:34 - Anticipated Interventions Anticipated Interventions: The patient requires inpatient IRF care for PT and OT for residuals remaining from lead placement, device change and thoracotomy as well as acute on chronic hypoxemic/hypercapneic respiratory failure resulting in muscular weakness and strength deficits. - Current Functional Status Failed Alternative Therapy: Arrived from Acute Care Patient Requires: The patient requires oversight by rehabilitation physician to manage their rehabilitation treatment plan and multidisciplinary approach to care that can only be provided in an IRF and requires a multidisciplinary approach to care, provided by professional PTs, OTs, STs, rehabilitation nurses, and may require STs, dieticians, and RTS. This is not available in lesser levels of care. Physical Therapy Minutes: 90 Occupational Therapy Minutes: 90 Therapy: The patient is to receive therapy at least 5 days a week. - Anticipated LOS/Outcomes Anticipated Functional Outcome: It is anticipated the patient will be able to return to her pre-morbid state and be safe to complete her ADL's and ambulation at a modified independent level or better as well as have her respiratory failure and CHF stabilized and controlled. Anticipated Length of Stay (days): 8 Anticipated DC Destination: Home, Self Care, Home Health Service Home Safety Plan: The patient will be provided with the development of a Home Safety Plan for return to a home or home-like environment and and to ensure safety post discharge. - Plan to Avoid Complications Barriers to Attaining Goals: Weakness, Endurance, Pain Control, Medical Limitation Plan to Avoid Complications: The patient cannot receive this care in a lesser intensive setting such as Long Term or Outpatient Therapy due to the patient requiring the following : severe cardiomyopathy and respiratory failure requiring a multidisciplinary approach to management and monitoring .
[2017-06-25] MEDS: ASPIRIN *EC* 81 MG TABLET PO SCH (08:51)
[2017-06-25] MEDS: CALCIUM CITRATE 950 MG TABLET PO SCH ×2 (08:51→20:59)
[2017-06-25] MEDS: DIGOXIN 125 MCG TABLET PO SCH (08:59)
[2017-06-25] MEDS: DORZOLAMIDE 2% EYE DROPS 10ml EACH EYE SCH ×2 (09:00→21:02)
[2017-06-25] MEDS: DOCUSATE SODIUM 100 MG CAPSULE PO SCH ×2 (09:00→20:56)
[2017-06-25] MEDS: SACUBITRIL/VALSARTAN 24/26mg TABLET PO SCH ×2 (09:01→20:59)
[2017-06-25] MEDS: MULTI-VIT + MINERAL (Opti-gen) TABLET PO SCH ×2 (09:01→20:57)
[2017-06-25] MEDS: FERROUS SULFATE 324 MG TABLET PO SCH ×2 (09:01→20:56)
[2017-06-25] MEDS: LETROZOLE 2.5 MG TABLET PO SCH (09:01)
[2017-06-25] MEDS: TRIAMCINOLONE 0.1% CREAM 15 G TUBE TOP SCH ×2 (09:04→21:01)
--- NOTE | 2017-06-25 09:47 | XRay Report ---
Indication: hypoxia PROCEDURE: XR chest 1V: Encounter: Initial Comparison: May 20, 2010 Findings: The lungs are grossly clear. No pneumothorax or obvious pleural effusion. Cardiac silhouette is severely enlarged. Left pacemaker defibrillator. Mediastinal contours are widened. Pulmonary vascularity is not obviously enlarged however. Impression: 1. No pneumonia or overt congestive failure. 2. Severe enlargement of the cardiac silhouette could be due to cardiomegaly or pericardial effusion. .
--- NOTE | 2017-06-25 11:29 | IRU Progress Note ---
- Subjective/Serverity of Illness no complaints does have some numbness in the R hand she wants me to check had CTR by Dr Garrido on the L hest a little sore on O2 3L BUN high--kinjal notify hospitalists Exam Vital Signs: Temperature 98.0 F 06/25/17 08:00 Pulse Rate 84 06/25/17 08:59 Respiratory Rate 18 06/25/17 08:00 Blood Pressure 99/62 06/25/17 08:00 Pulse Oximetry 99 06/25/17 08:00 Height/Weight/BMI: Height 1.6 m Weight 97 kg Body Mass Index 37.8 - Constitutional Present: no acute distress - Routine Neurological Exam Present: alert, oriented X3 decreased sensation in mid and 1/2 ring finger on the Right IRU A/P (1) Carpal tunnel syndrome on right Current visit: Yes Status: Acute DVT Prophylaxis: Xarelto Resuscitation Status: Full Code - Course Hospital Course: Bryant Zavala MD: - Interventions to Obtain Goals PT Treatment Plan: Balance/Proprioception, Functional Activities, Gait Training , Patient/Family Education, Therapeutic Exercise OT Treatment Plan: ADL (Basic Care), IADL, Pt./Family Education, Ther. Exercise for ADL
[2017-06-25] MEDS: RIVAROXABAN 15 MG TABLET PO SCH (17:30)
[2017-06-25] MEDS: POLYETHYL GLYCOL 3350 17gm PACKET PO SCH (20:55)
[2017-06-25] MEDS: ALLOPURINOL 300 MG TABLET PO SCH (20:56)
[2017-06-25] MEDS: AMITRIPTYLINE 50 MG TABLET PO SCH (21:00)
[2017-06-25] MEDS: LATANOPROST 0.005% EYE DROPS 2.5ml RIGHT EYE SCH (21:03)
[2017-06-26] MEDS: ACETAMINOPHEN 325 MG TABLET PO PRN ×2 (02:27→22:00)
[2017-06-26] MEDS: OMEPRAZOLE 20 MG CAPSULE PO SCH (06:24)
[2017-06-26] MEDS: LEVOTHYROXINE 75 MCG TABLET PO SCH (06:25)
[2017-06-26] MEDS: DOCUSATE SODIUM 100 MG CAPSULE PO SCH ×2 (08:51→21:21)
[2017-06-26] MEDS: CALCIUM CITRATE 950 MG TABLET PO SCH ×2 (08:51→21:20)
[2017-06-26] MEDS: DIGOXIN 125 MCG TABLET PO SCH (08:51)
[2017-06-26] MEDS: LETROZOLE 2.5 MG TABLET PO SCH (08:51)
[2017-06-26] MEDS: FERROUS SULFATE 324 MG TABLET PO SCH ×2 (08:51→21:22)
[2017-06-26] MEDS: ASPIRIN *EC* 81 MG TABLET PO SCH (08:51)
[2017-06-26] MEDS: MULTI-VIT + MINERAL (Opti-gen) TABLET PO SCH ×2 (08:51→21:25)
[2017-06-26] MEDS: SACUBITRIL/VALSARTAN 24/26mg TABLET PO SCH ×2 (08:52→21:25)
[2017-06-26] MEDS: TRIAMCINOLONE 0.1% CREAM 15 G TUBE TOP SCH ×2 (08:52→21:27)
[2017-06-26] MEDS: DORZOLAMIDE 2% EYE DROPS 10ml EACH EYE SCH ×2 (08:52→21:22)
[2017-06-26] MEDS ORDERED: FALL RISK - PHARMACY CONSULT XX ONE (09:31)
[2017-06-26] MEDS: RIVAROXABAN 15 MG TABLET PO SCH (17:26)
[2017-06-26] MEDS: SALINE FLUSH 10ml SYRINGE IV PRN ×2 (17:29→21:35)
[2017-06-26] MEDS: ALLOPURINOL 300 MG TABLET PO SCH (21:18)
[2017-06-26] MEDS: AMITRIPTYLINE 50 MG TABLET PO SCH (21:19)
[2017-06-26] MEDS: LATANOPROST 0.005% EYE DROPS 2.5ml RIGHT EYE SCH (21:23)
[2017-06-26] MEDS: POLYETHYL GLYCOL 3350 17gm PACKET PO SCH (21:25)
[2017-06-27] MEDS: OMEPRAZOLE 20 MG CAPSULE PO SCH (06:32)
[2017-06-27] MEDS: LEVOTHYROXINE 75 MCG TABLET PO SCH (06:32)
[2017-06-27] MEDS: FERROUS SULFATE 324 MG TABLET PO SCH ×2 (08:55→20:44)
[2017-06-27] MEDS: CALCIUM CITRATE 950 MG TABLET PO SCH ×2 (08:56→20:42)
[2017-06-27] MEDS: SACUBITRIL/VALSARTAN 24/26mg TABLET PO SCH ×2 (08:56→20:48)
[2017-06-27] MEDS: ASPIRIN *EC* 81 MG TABLET PO SCH (08:56)
[2017-06-27] MEDS: DIGOXIN 125 MCG TABLET PO SCH (08:56)
[2017-06-27] MEDS: MULTI-VIT + MINERAL (Opti-gen) TABLET PO SCH ×2 (08:56→20:47)
[2017-06-27] MEDS: LETROZOLE 2.5 MG TABLET PO SCH (08:56)
[2017-06-27] MEDS: DORZOLAMIDE 2% EYE DROPS 10ml EACH EYE SCH ×2 (08:57→20:45)
[2017-06-27] MEDS: DOCUSATE SODIUM 100 MG CAPSULE PO SCH ×2 (08:57→20:43)
[2017-06-27] MEDS: TRIAMCINOLONE 0.1% CREAM 15 G TUBE TOP SCH ×2 (08:58→20:49)
[2017-06-27 10:10] VITALS: RESP 16
--- NOTE | 2017-06-27 14:20 | Progress Note ---
<Nan Browne - Last Filed: 06/27/17 14:17> - Date 06/27/17 Subjective: Kim is seen today while resting in her chair, watching TV. She reports that she feels great and is hopeful that she may go home tomorrow. She denies any complaints or concerns including no chest pain, shortness of breath, abdominal pain, nausea, vomiting or dysuria. She reports that her appetite is great and her bowels are moving. She has asked that her stool softeners be reduced due to looser stools recently. No diarrhea. Her breathing is stable and she denies cough, congestion or fevers. Objective Vital signs: Temperature 98.4 F 06/27/17 08:00 Pulse Rate 74 06/27/17 08:56 Respiratory Rate 16 06/27/17 08:00 Blood Pressure 110/55 06/27/17 08:00 Pulse Oximetry 97 06/27/17 08:00 Height/Weight/BMI: Height 5 ft 3 in Weight 213 lb 13.574 oz Body Mass Index 37.8 - Constitutional Present: no acute distress, well nourished, well developed, obese, cooperative - Routine HEENT Exam Head: Present: normocephalic, atraumatic Eye: Present: PERRL. Absent: conjunctival icterus ENT: Present: mucous membranes moist - Routine Respiratory Exam Present: crackles (bibasilar), distant breath sounds, diminished air movement. Absent: dyspnea, rhonchi, stridor, wheezes Comments: remains on 2L supplemental oxygen. - Routine Cardiovascular Exam Present: RRR, S1, S2, murmur - Routine Abdominal Exam Present: soft, normoactive bowel sounds, non distended, non tender - Routine Extremities Exam Present: no edema, full ROM, pulses intact. Absent: calf tenderness - Routine Back/Spine/Pelvis Exam Back/Spine: Present: full ROM. Absent: vertebral tenderness - Routine Musculoskeletal Exam Musculoskeletal: Present: moving extremities well - Routine Skin Exam Present: intact, dry, warm Comments: afebrile. - Routine Neurological Exam Present: alert, oriented X3, moving all extremities, normal speech - Routine Lymphatic Exam Lymphatic: Absent: lymphedema - Routine Psychiatric Exam Present: normal affect, cooperative Results - Labs CBC & Chem 7: 06/27/17 03:53 06/27/17 03:53 Assessment and Plan (1) Acute kidney injury (nontraumatic) Current visit: Yes Status: Acute (2) Leukocytosis Current visit: Yes Status: Resolved (3) Acute on chronic respiratory failure with hypoxia and hypercapnia Current visit: Yes Status: Acute Assessment and Plan: IMPRESSION S/P Left anterior thoracotomy for left ventricular epicardial lead placement, extraction of coronary sinus lead and replacement of biventricular automatic implantable cardioverter defibrillator on 06/16/17 - Dr. Carson Wild Postop complications included MAURI (cr peaked at 1.8); acute hypercapnic and hypoxic resp failure; confusion (poss r/t not using BiPAP HS); hyponatremia (130 ); persistent leukocytosis COPD Pulmonary HTN Chronic respiratory failure with hypoxia and hypercapnia; GOMEZ/OHS -nocturnal O2 5-6L -supposed to be on BiPAP at home but doesn't use Cardiomyopathy CHF A-fib History of DVT - anticoagulated on Xarelto HTN PVD CKD stage III HX: breast cancer Hyperthyroidism Anemia requiring PRBC transfusion Obesity BMI 37.9 Plan - 06/27/17 Kim reports that she is feeling so good, she is hopeful to be discharged tomorrow, though actual discharge plans are not known. Continue to encourage participation in therapies for strengthening. States respiratory function is improving, though remains on supplemental oxygen at 1-2L. Discussed with nursing importance of weaning oxygen as able to maintain SAO2 >90. Recommended pulse ox for Kim is 93-95%. Monitor daily weight closely for signs of fluid overload. Will check CBC and BMP in AM to monitor blood counts, electrolytes and renal function. Overall, patient appears to be doing well. DVT Prophylaxis: SCD's Resuscitation Status: Full Code - Time spent with patient Time with patient PN: 25 minutes Hospital Course Summary Disclaimer: The visit summary below is not to be considered part of the above Progress Note. Hospital Course: 06/24/17 09:52 IMPRESSION S/P Left anterior thoracotomy for left ventricular epicardial lead placement, extraction of coronary sinus lead and replacement of biventricular automatic implantable cardioverter defibrillator on 06/16/17 - Dr. Carson Wild Postop complications included MAURI (cr peaked at 1.8); acute hypercapnic and hypoxic resp failure; confusion (poss r/t not using BiPAP HS); hyponatremia (130 ); persistent leukocytosis COPD Pulmonary HTN Chronic respiratory failure with hypoxia and hypercapnia; GOMEZ/OHS -nocturnal O2 5-6L -supposed to be on BiPAP at home but doesn't use Cardiomyopathy CHF A-fib History of DVT - anticoagulated on Xarelto HTN PVD CKD stage III HX: breast cancer Hyperthyroidism Anemia requiring PRBC transfusion Obesity BMI 37.9 PLAN Leukocytosis - afebrile; no evidence of infection. Will check CXR (d/t hypoxia + leukocytosis), UA. MAURI - improvement noted. BUN 73 and cr 1.3 on admit. Had been diuresed with IV followed by PO Bumex - given cardiomyopathy and CHF she may need add'l diuresis. Hyponatremia - resolved; Na 136. Macrocytic anemia - mild. Hgb remained stable at [facility]. Cont ferrous sulfate. COPD/GOMEZ/Resp failure - wean daytime oxygen as able; BiPAP at night, as tolerated. DuoNeb PRN. A-fib; hx DVT - cont Xarelto. Heart sounded regular on exam. Rate in the 80s. HTN; A-fib - cont digoxin, metoprolol. BP stable. Pain control per attending. Plan - 06/27/17 Kim reports that she is feeling so good, she is hopeful to be discharged tomorrow, though actual discharge plans are not known. Continue to encourage participation in therapies for strengthening. States respiratory function is improving, though remains on supplemental oxygen at 1-2L. Discussed with nursing importance of weaning oxygen as able to maintain SAO2 >90. Recommended pulse ox for Kim is 93-95%. Monitor daily weight closely for signs of fluid overload. Will check CBC and BMP in AM to monitor blood counts, electrolytes and renal function. Overall, patient appears to be doing well. <Avi Yoder D - Last Filed: 06/27/17 18:07> - Date 06/27/17 Objective Vital signs: Temperature 97.6 F 06/27/17 16:00 Pulse Rate 97 06/27/17 16:00 Respiratory Rate 16 06/27/17 16:00 Blood Pressure 111/67 06/27/17 16:00 Pulse Oximetry 97 06/27/17 16:00 Height/Weight/BMI: Height 1.6 m Weight 97.2 kg Body Mass Index 37.8 Results - Labs CBC & Chem 7: 06/27/17 03:53 06/27/17 03:53 Assessment and Plan (1) Acute kidney injury (nontraumatic) Current visit: Yes Status: Acute (2) Leukocytosis Current visit: Yes Status: Resolved (3) Acute on chronic respiratory failure with hypoxia and hypercapnia Current visit: Yes Status: Acute Assessment and Plan: IMPRESSION S/P Left anterior thoracotomy for left ventricular epicardial lead placement, extraction of coronary sinus lead and replacement of biventricular automatic implantable cardioverter defibrillator on 06/16/17 - Dr. Carson Wild Postop complications included MAURI (cr peaked at 1.8); acute hypercapnic and hypoxic resp failure; confusion (poss r/t not using BiPAP HS); hyponatremia (130 ); persistent leukocytosis COPD Pulmonary HTN Chronic respiratory failure with hypoxia and hypercapnia; GOMEZ/OHS -nocturnal O2 5-6L -supposed to be on BiPAP at home but doesn't use Cardiomyopathy CHF A-fib History of DVT - anticoagulated on Xarelto HTN PVD CKD stage III HX: breast cancer Hyperthyroidism Anemia requiring PRBC transfusion Obesity BMI 37.9 Have independently interviewed and examined pt. Chart reviewed. Case discussed with my PA. Care plan developed with my supervision; agree with above. Doing well. Making gains with therapy. Breathing well but still needing O2. Eating well. Lungs: decreased no distress CV: regular sounding MSE: awake alert appropriate Plan: Encourage continuation of therapy and activities. Encourage pulm toilet. Wean O2 as able. Suspect discharge in near future. Medically stable for IRU floor activities. Hospital Course Summary Disclaimer: The visit summary below is not to be considered part of the above Progress Note.
[2017-06-27] MEDS: RIVAROXABAN 15 MG TABLET PO SCH (17:39)
[2017-06-27] MEDS: AMITRIPTYLINE 50 MG TABLET PO SCH (20:40)
[2017-06-27] MEDS: ALLOPURINOL 300 MG TABLET PO SCH (20:40)
[2017-06-27] MEDS: LATANOPROST 0.005% EYE DROPS 2.5ml RIGHT EYE SCH (20:45)
[2017-06-27] MEDS: POLYETHYL GLYCOL 3350 17gm PACKET PO SCH (20:50)
[2017-06-27] MEDS: ACETAMINOPHEN 325 MG TABLET PO PRN (23:39)
[2017-06-28] MEDS: OMEPRAZOLE 20 MG CAPSULE PO SCH (05:56)
[2017-06-28] MEDS: ACETAMINOPHEN 325 MG TABLET PO PRN (05:57)
[2017-06-28] MEDS: LEVOTHYROXINE 75 MCG TABLET PO SCH (05:57)
[2017-06-28 07:20] VITALS: BP 126/81; TEMP 97.5
[2017-06-28] MEDS: LETROZOLE 2.5 MG TABLET PO SCH (08:54)
[2017-06-28] MEDS: MULTI-VIT + MINERAL (Opti-gen) TABLET PO SCH (08:54)
[2017-06-28] MEDS: SACUBITRIL/VALSARTAN 24/26mg TABLET PO SCH (08:54)
[2017-06-28] MEDS: DIGOXIN 125 MCG TABLET PO SCH (08:54)
[2017-06-28] MEDS: CALCIUM CITRATE 950 MG TABLET PO SCH (08:55)
[2017-06-28] MEDS: ASPIRIN *EC* 81 MG TABLET PO SCH (08:55)
[2017-06-28] MEDS: DOCUSATE SODIUM 100 MG CAPSULE PO SCH (08:56)
[2017-06-28] MEDS: FERROUS SULFATE 324 MG TABLET PO SCH (08:56)
[2017-06-28] MEDS: DORZOLAMIDE 2% EYE DROPS 10ml EACH EYE SCH (08:57)
[2017-06-28] MEDS: TRIAMCINOLONE 0.1% CREAM 15 G TUBE TOP SCH (09:00)
--- NOTE | 2017-06-28 10:14 | IRU Progress Note ---
- Subjective/Serverity of Illness Ms. Mcgraw states that overall she feels well. She does have some dyspnea with activity but she tries not to pressure Self very rapidly. She denies any chest pain except that related to the thoracotomy site. Reports that that is adequately controlled at present. She has had no cough and no sputum. Her oxygen requirements are bit improved. Not currently requiring oxygen during the daytime. There is no discharge from the thoracotomy/chest tube site. She did have some lightheadedness over the weekend. She attributed that to the presence of water in the oxygen supply. That is improved at present. No evidence of actual cardiac dysrhythmia etc. Update on medical issues that we are actively monitoring and managin. CHF/cardiomyopathy requiring close monitoring of fluid balance. She does have some dyspnea with activity as anticipated. Denies any chest pain except that related to the thoracotomy site. Has some lightheadedness but did not appear to be consistent with a cardiac arrhythmia. Her weight is stable. 2. COPD with acute on chronic hypercapnic hypoxemic respiratory failure. Does not have evidence of worsening respiratory function. Her oxygen requirements have improved a bit. 3. Leukocytosis of unclear etiology. Leukocytosis improved from 12,000 down to 9.7 back up to 11,000. No evidence of wound infection nor other infection at present. 4. Thoracotomy wound pain. She reports that her pain is adequately controlled. 5. Acute kidney injury: Her follow-up creatinine has been stable at 1.3-1.4. This will be monitored. Exam Vital Signs: Temperature 97.5 F 06/28/17 07:20 Pulse Rate 78 06/28/17 08:54 Respiratory Rate 16 06/28/17 07:20 Blood Pressure 126/81 06/28/17 07:20 Pulse Oximetry 98 06/28/17 07:20 Height/Weight/BMI: Height 1.6 m Weight 97.2 kg Body Mass Index 37.8 Comments: The patient is awake, alert and oriented and in no acute distress. Pupils are equal. The neck is supple. Chest: Clear to auscultation bilaterally, although with diminished breath sounds. Cor: Systolic murmur may be present. Rhythm sounds fairly regular at present. Inspection of defibrillator wound indicates bruising but no infection/ inflammation. Inspection of workout me site is unremarkable. No drainage and it appears to be healing adequately. Abd: soft with normo-active bowel sounds. There are no masses, no tenderness and no guarding. Extremities: No edema is noted. Results IRU - Labs Labs: Reviewed other providers notes and labs as well as vital signs. IRU A/P (1) Cardiomyopathy Qualifiers: Cardiomyopathy type: unspecified Qualified Code(s): I42.9 - Cardiomyopathy , unspecified Current visit: Yes Status: Chronic She does have the anticipated amount of dyspnea with activity. However she is tolerating therapy well and we will continue with therapy. (2) Acute kidney injury (nontraumatic) Current visit: Yes Status: Acute Her renal function appears to be stable at 1.4. (3) Acute on chronic respiratory failure with hypoxia and hypercapnia Current visit: Yes Status: Acute Oxygen requirements have improved. Still requires oxygen at night but not as much during the daytime. (4) Leukocytosis Qualifiers: Leukocytosis type: other Qualified Code(s): D72.828 - Other elevated white blood cell count Current visit: Yes Status: Resolved White count was improved at 9700 and now is back up to 11,000. However no evidence of infection. (5) COPD (chronic obstructive pulmonary disease) Qualifiers: COPD type: unspecified COPD Qualified Code(s): J44.9 - Chronic obstructive pulmonary disease, unspecified Current visit: Yes Status: Chronic DVT Prophylaxis: SCD's Resuscitation Status: Full Code - Course Hospital Course: Bryant Zavala MD: 06/28/17 10:16 Patient is progressing with therapy. She is tolerating therapy adequately. Her oxygen requirements have improved. Her cardiomyopathy/CHF appears to be compensated at present. - Interventions to Obtain Goals PT Treatment Plan: Balance/Proprioception, Functional Activities, Gait Training , Patient/Family Education, Therapeutic Exercise OT Treatment Plan: ADL (Basic Care), IADL, Pt./Family Education, Ther. Exercise for ADL
--- NOTE | 2017-06-28 13:31 | IRU Team Meeting ---
IRU Team Meeting - Nursing Bladder Assistive Devices Utilized:: Absorbent Pad Bladder Management Level of Assist: Modified Independent Bladder Frequency of Accidents: No accidents Number of Bladder Accidents: 1 Bowel Assistive Devices Utilized:: Medication Bowel Management Level of Assist: Modified Independent Vital Signs: Vital Signs - 24 hr 06/27/17 16:00 06/27/17 19:48 06/28/17 07:20 Temperature 97.6 F 98.4 F 97.5 F Pulse Rate 97 98 71 Respiratory Rate 16 16 Blood Pressure 111/67 98/53 126/81 Pulse Oximetry 97 92 98 06/28/17 08:00 06/28/17 08:54 Temperature Pulse Rate 82 78 Respiratory Rate Blood Pressure Pulse Oximetry Current Medications: Acetaminophen (Tylenol) 650 mg PO Q4H PRN PRN Reason: Pain Last Admin: 06/28/17 05:57 Dose: 650 mg Hydrocodone Bitart/Acetaminophen ([place] 5/325) 1 - 2 tab PO Q4H PRN PRN Reason: Pain Albuterol/Ipratropium (Duoneb) 3 ml AEROSOL RTQID PRN Allopurinol (Zyloprim) 300 mg PO [facility] Last Admin: 06/27/17 20:40 Dose: 300 mg Amitriptyline HCl (Elavil) 25 mg PO HS [facility] Aspirin (Ecotrin) 81 mg PO DAILY [facility] Last Admin: 06/28/17 08:55 Dose: 81 mg Calcium Citrate (Calcitrate) 950 mg PO BID [facility] Last Admin: 06/28/17 08:55 Dose: 950 mg Cholecalciferol (Vit. D-3) 400 unit PO BID [facility] Last Admin: 06/28/17 08:54 Dose: 400 unit Digoxin (Lanoxin) 125 mcg PO DAILY [facility] Last Admin: 06/28/17 08:54 Dose: 125 mcg Docusate Sodium (Colace) 100 mg PO BID [facility] Last Admin: 06/28/17 08:56 Dose: 100 mg Dorzolamide HCl (Trusopt) 0.5 drops EACH EYE BID [facility] Last Admin: 06/28/17 08:57 Dose: 0.5 drops Ferrous Sulfate ([facility]osol) [facility] Latanoprost (Xalatan) 1 drops RIGHT EYE [facility] Last Admin: 06/27/17 20:45 Dose: 1 drops Letrozole (Femara) 2.5 mg PO DAILY [facility] Last Admin: 06/28/17 08:54 Dose: 2.5 mg Levothyroxine Sodium (Synthroid) 75 mcg PO 0600 [facility] Last Admin: 06/28/17 05:57 Dose: 75 mcg Metoprolol Tartrate (Lopressor) 25 mg PO HS [facility] Last Admin: 06/27/17 20:46 Dose: 25 mg Multivitamins/Minerals (Vision) 1 tab PO BID [facility] Last Admin: 06/28/17 08:54 Dose: 1 tab Nitroglycerin (Nitrostat) 0.4 mg SL PRN [facility] Omeprazole (Prilosec) 40 mg PO ACB [facility] Last Admin: 06/28/17 05:56 Dose: 40 mg Ondansetron HCl (Zofran Po) 4 mg PO Q6HR PRN PRN Reason: Nausea &/or vomiting Polyethylene Glycol (Miralax) 17 gm PO HS [facility] Last Admin: 06/27/17 20:50 Dose: Not Given Rivaroxaban (Xarelto) 15 mg PO WS [facility] Last Admin: 06/27/17 17:39 Dose: 15 mg Sacubitril/Valsartan (Entresto 24/26mg) 1 tab PO BID [facility] Last Admin: 06/28/17 08:54 Dose: 1 tab Sodium Chloride (Iv Flush) 10 ml IV PRN PRN PRN Reason: Flushing Last Admin: 06/26/17 21:35 Dose: 10 ml Triamcinolone Acetonide (Kenalog) 1 applic TOP BID [facility] Last Admin: 06/28/17 09:00 Dose: 1 applic Current Medical Issues: Cardiomyopathy/CHF, Risk of Vent Fibrillation, hypoxemic respiratory failure, acute kidney injury Comments: I certify that I personally led the interdisciplinary team meeting and agree with comments, barriers and goals indicated. Team meeting was held in the patient's room with the patient and the following family members present: patient alone Ms. Mcgraw has been very cooperative. She has used oxygen at night but declines the BiPAP. Previous order was for oxygen 24 hours daily but she typically did not use it during the daytime. She is on Xarelto for DVT/PE in the past. Kidney function is monitored and is stable at 1.4. No other changes in medications are noted. Pain is adequately controlled. - Dietary Remains on fluid restriction. - Physical Therapy Bed, Chair, Wheelchair Transfer Assist: Modified Independent Ambulation Ability: Stand By Assist/Supervision Ambulation Distance: 556 Stair Climbing Ability: Modified Independent Number of Steps Climbed: 12 Car Transfer Ability: Stand By Assist/Supervision Comments: She has done well with physical therapy. She is able to ambulate over 500 feet. She is modified independent for all gait and transfers excluding stairs only. She has met goals and plans to go home today. - Occupational Therapy Eating Ability: Independent Grooming Ability: Independent Bathing Ability: Modified Independent Upper Body Dressing Ability: Independent Lower Body Dressing Ability: Independent Tub Transfer Assist: Modified Independent Toileting Assist: Independent Toilet Transfer Assist: Modified Independent Comments: Likewise, she has done very well with occupational therapy and is felt to be stable for dismissal to her home. - Goals Physical Therapy Goals: 06/28/17 Goals: 1.) Discharge Planning Occupational Therapy Goals: 06/28. 1.) d/c planning - Barriers to Discharge Barriers to Attaining Goals: Endurance, Medical Limitation - Care Plan Anticipated Length of Stay (days): 0 Anticipated DC Destination: Home, Self Care, Home Health Service I have led this team conference and agree with the plan. Interventions/Goals: She has done well with therapy. She is stable to be dismissed today.
[2017-06-28 13:46] VITALS: PULSE 108; O2SAT 92
--- NOTE | 2017-06-28 14:22 | Discharge Summary ---
Discharge Information Date of admission: 06/23/17 17:40 Attending Physician: Bryant Zavala MD Primary care physician: Alfredo Montes DO Consults: 06/23/17 17:48 Physician Consult [CONS] Routine Consulting Provider: Avi Yoder Reason For Exam: medical management Ordering Provider has Notified [employer]: Yes - Discharge Diagnosis (1) Cardiomyopathy Status: Chronic (2) Acute kidney injury (nontraumatic) Status: Acute (3) Acute on chronic respiratory failure with hypoxia and hypercapnia Status: Acute (4) Leukocytosis Status: Resolved (5) COPD (chronic obstructive pulmonary disease) Status: Chronic 1. Cardiomyopathy 2. Debilitation 3. Chronic obstructive pulmonary disease 4. Acute on chronic hypoxemic hypercapnic respiratory failure 5. Acute kidney injury 6. Leukocytosis - Laboratory Labs: 06/28/17 03:44 06/28/17 03:44 History of Present Illness HPI: 06/28/17 14:16 Ms. Mcgarw is followed by Dr. Gonzalez in [place]. She was advised that she needed a new lead and pacemaker/defibrillator. She was admitted to the hospital in [place] and taken to surgery by Dr. Ramirez on 06/16/2017. Procedure performed was left anterior thoracotomy with explantation of coronary sinus lead, new left ventricular lead placement and implantation of biventricular defibrillator/ pacemaker. Postoperatively she did have worsening hypoxemia and debilitation along with pain in the thoracotomy site. She did have a mild leukocytosis of around 12, 000. She also demonstrated acute kidney injury with creatinine increasing from 1.2 rising to 1.8 by the time of dismissal from [place]. For these reasons she was transferred to the acute inpatient rehabilitation at [facility] for a multidisciplinary approach to her recovery. Hospital Course This is a general summary of the patient's hospital course. For more details refer to the complete medical record. Kim was admitted to the acute inpatient rehabilitation unit on 06/23/2017. She was followed by the hospitalist service as well. Her respiratory failure was monitored and she was given oxygen. It was recommended that she use BiPAP at night but she declined after the first night. Subsequently it was felt that she can get by without her daytime oxygen. However we did do exercise oximetry on the day of dismissal and it was noted that she did drop down to 85% SaO2 on room air with ambulation of 450 feet. For this reason it is recommended that she continue to use oxygen 24 hours daily at a flow rate of 5-6 L at night and 2 L during the day particularly with activity. She was advised of this. She was seen by occupational therapy. She was able to eat independently at baseline and at the conclusion of therapy. Grooming was modified independent level initially and independent subsequently. Bathing was standby assistance initially and modified independent subsequently. Upper body dressing was independent upon admission and dismissal. Lower body dressing improved from standby assistance to independent level. Toileting assistance improved from standby assistance to independent functioning. Toilet transfer assistance was initially standby assistance and ultimately modified independent. Bed/chair/ wheelchair transfers were initially standby assistance. She was seen by physical therapy as well. Bed/chair/wheelchair transfers improved from standby assistance to modified independent level. Toilet assistance was modified independent at the time of admission and dismissal. Toilet transfer assistance was able to agree performed modified independent level ultimately. Cardiac transfers were standby assistance. Ambulation initially with standby assistance at 162 feet. It ultimately was standby assistance at 556 feet. She was able to climb 4 steps initially at standby assistance levels and ultimately 12 steps and standby assistance. Her kidney function was monitored. Upon admission here it was 1.3 and upon dismissal was 1.4. It had been 1.8 upon dismissal from [place]. Her leukocytosis was monitored and was 11,000 by the time of dismissal. No etiology of the leukocytosis was able to be identified as there was no evidence of infection. She is improved in improved condition and stable to go home. She will follow-up with Dr. manley and her industrial paramedic Dr. boykin. Hospital course: 06/24/17 09:52 IMPRESSION S/P Left anterior thoracotomy for left ventricular epicardial lead placement, extraction of coronary sinus lead and replacement of biventricular automatic implantable cardioverter defibrillator on 06/16/17 - Dr. Carson Wild Postop complications included MAURI (cr peaked at 1.8); acute hypercapnic and hypoxic resp failure; confusion (poss r/t not using BiPAP HS); hyponatremia (130 ); persistent leukocytosis COPD Pulmonary HTN Chronic respiratory failure with hypoxia and hypercapnia; GOMEZ/OHS -nocturnal O2 5-6L -supposed to be on BiPAP at home but doesn't use Cardiomyopathy CHF A-fib History of DVT - anticoagulated on Xarelto HTN PVD CKD stage III HX: breast cancer Hyperthyroidism Anemia requiring PRBC transfusion Obesity BMI 37.9 PLAN Leukocytosis - afebrile; no evidence of infection. Will check CXR (d/t hypoxia + leukocytosis), UA. MAURI - improvement noted. BUN 73 and cr 1.3 on admit. Had been diuresed with IV followed by PO Bumex - given cardiomyopathy and CHF she may need add'l diuresis. Hyponatremia - resolved; Na 136. Macrocytic anemia - mild. Hgb remained stable at [facility]. Cont ferrous sulfate. COPD/GOMEZ/Resp failure - wean daytime oxygen as able; BiPAP at night, as tolerated. DuoNeb PRN. A-fib; hx DVT - cont Xarelto. Heart sounded regular on exam. Rate in the 80s. HTN; A-fib - cont digoxin, metoprolol. BP stable. Pain control per attending. Plan - 06/27/17 Kim reports that she is feeling so good, she is hopeful to be discharged tomorrow, though actual discharge plans are not known. Continue to encourage participation in therapies for strengthening. States respiratory function is improving, though remains on supplemental oxygen at 1-2L. Discussed with nursing importance of weaning oxygen as able to maintain SAO2 >90. Recommended pulse ox for Kim is 93-95%. Monitor daily weight closely for signs of fluid overload. Will check CBC and BMP in AM to monitor blood counts, electrolytes and renal function. Overall, patient appears to be doing well. Time spent with patient: 25 - 35 minutes Discharge Plan - Med Rec/Dispo Referrals/Follow Up: Alfredo Montes DO [Family Provider] - (Dr. Radha Montes on 07/06/17 at 9:45 am for Hosp. follow-up. [address] [place] [address]) Prescriptions: Continue Amitriptyline HCl 25 mg PO HS #0 Latanoprost 1 drop BOTH EYES HS #0 Digoxin [Digox] 1 tab PO DAILY #0 Cholecalciferol (Vitamin D3) [Vitamin D-400] 1 tab PO BID #0 Nitroglycerin [Nitrostat] 1 tab SL PRN #0 tab PEG 3350 17gm PACKET [Miralax] 17 gm PO HS Docusate Sodium [Colace] 1 cap PO BID Dorzolamide Eye Drops [Trusopt] 1 drop EACH EYE BID Aspirin *EC* [Ecotrin] 1 tab PO DAILY Ferrous Sulfate 1 tab PO BID Mv-Min/FA/Vit K/Lycop/Lut/Zeax [Ocuvite Eye + Multi Tablet] 1 each PO BID Metoprolol Tartrate 25 mg PO HS #0 Triamcinolone 0.1% Cream 15 G [Kenalog] 1 applicatio TOP BID #0 Allopurinol 300 mg PO HS #0 Levothyroxine Sodium 75 mcg PO 0600 #0 Calcium Citrate 600 mg PO BID #0 Omeprazole 40 mg PO DAILY Letrozole 2.5 mg PO DAILY Ondansetron [Zofran Odt] 1 tab PO Q6HR PRN PRN Reason: Nausea &/Or Vomiting Acetaminophen [Tylenol] 650 mg PO Q4H PRN PRN Reason: Pain Rivaroxaban [Xarelto] 15 mg PO WS sacubitril 24 mg-valsartan 26 mg tablet 1 tab PO BID Discontinued Hydrocodone/APAP 5/325 [[place] 5/325] 1 - 2 tab PO Q4H PRN PRN Reason: Pain - Disposition 01 Discharged Home, Self-Care - Dismissal Complete Discharge Instructions are:: Complete
[2017-06-28] MEDS ORDERED: FERROUS SULFATE 324 MG TABLET PO SCH (17:30)
[2017-06-28] MEDS ORDERED: AMITRIPTYLINE 25 MG TABLET PO SCH (21:00)
== END 2017-06-28 16:35 | disposition home health service (06) | DRG 949 ==
PROVIDERS: ADMIT Internal Medicine; ATTEND Internal Medicine